=== PATIENT | male | born 1955 | race Caucasian/White ===

== ENCOUNTER 2016-08-01 00:49 | Inpatient (IN) | payer SELFPAY ==
[2016-08-01] MEDS ORDERED: ASPIRIN 81 MG TABLET, CHEWABLE PO ONE (01:33)
[2016-08-01 01:42] LABS: ABSOLUTE BASOPHILS # (AUTO) 0.1 10^3/uL (0.0-0.2); ABSOLUTE EOSINOPHILS # (AUTO) 0.2 10^3/uL (0.0-0.6); ABSOLUTE LYMPHOCYTES (AUTO) 1.6 10^3/uL (0.5-4.7); ABSOLUTE MONOCYTES (AUTO) 0.8 10^3/uL (0.1-1.4); BASOPHILS % (AUTO) 0.5 % (0-2); EOSINOPHILS % (AUTO) 1.7 % (0-6); HEMATOCRIT 50.8 % (37.9-51.0); HEMOGLOBIN 16.8 g/dL (13.5-17.0); HGB HCT DIFFERENCE -0.4; LYMPHOCYTES % (AUTO) 13.5 % (13-45); MEAN CORPUSCULAR HEMOGLOBIN 27.9 pg (27.0-33.4); MEAN CORPUSCULAR HGB CONC 33.2 g/dL (32.0-36.0); MEAN CORPUSCULAR VOLUME 84 fl (80-97); MONOCYTES % (AUTO) 7.1 % (3-13); RED BLOOD COUNT 6.02 10^6/uL (4.35-5.55); RED CELL DISTRIBUTION WIDTH 15.5 % (11.5-14.0); SEGMENTED NEUTROPHILS % (AUTO) 77.2 % (42-78); WHITE BLOOD COUNT 11.7 10^3/uL (4.0-10.5)
[2016-08-01] MEDS ORDERED: CLONIDINE HCL 0.2 MG TABLET PO ONE (01:57)
--- NOTE | 2016-08-01 01:58 | ER Document Report ---
ED General - General Chief Complaint: Chest Pain Stated Complaint: DIFFICULTY BREATHING Mode of Arrival: Ambulatory Information source: Patient Notes: Patient presents to the emergency department with complaints of left-sided chest pain for the past week. He also reports shortness of breath that comes and goes and lasts for approximately 10-20 seconds for the past year. Patient reports he has had productive phlegm for several years. He denies cough. He denies fever vomiting diarrhea reports he did have some nausea earlier. He reports that he was walking down the steps he became very short of breath and became dizzy. He also complains of abdominal pain in the morning but is better after he drinks coffee and has a bowel movement. He reports last bowel movement this morning. Denies history of cardiac disease but is hypertensive. He reports he hasn't taken his blood pressure medications for over 6 months. 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 TRAVEL OUTSIDE OF THE [place] IN LAST 30 DAYS: No - HPI Onset: Other - SOB over a year, cp for one week Onset/Duration: Persistent Quality of pain: Pressure Severity: Moderate Pain Level: 3 Associated symptoms: Nausea Exacerbated by: Denies Relieved by: Denies Similar symptoms previously: Yes Recently seen / treated by doctor: No - Related Data Allergies/Adverse Reactions: No Known Allergies Allergy (Unverified 08/01/16 01:56) Home Medications: Current Home Medications No Home Medications 08/01/16 [History] Past Medical History - General Information source: Patient - Social History Smoking Status: Never Smoker Cigarette use (# per day): No Frequency of alcohol use: Rare Drug Abuse: None Occupation: retired Lives with: Family - son Family History: Reviewed & Not Pertinent Patient has suicidal ideation: No Patient has homicidal ideation: No - Past Medical History Cardiac Medical History: Reports: Hx Hypertension Renal/ Medical History: Denies: Hx Peritoneal Dialysis Past Surgical History: Reports: Hx Orthopedic Surgery Review of Systems - Review of Systems Notes: Review HPI for review of systems., All other systems negative Physical Exam - Vital signs Vitals: Temp Pulse Resp BP Pulse Ox 98 F 95 18 203/147 H 98 08/01/16 01:11 08/01/16 01:11 08/01/16 01:11 08/01/16 01:11 08/01/16 01:11 - Notes Notes: PHYSICAL EXAMINATION: GENERAL: Well-appearing and in no acute distress nontxoic looking HEAD: Atraumatic, normocephalic. EYES: Pupils equal round and reactive to light, extraocular movements intact, sclera anicteric, conjunctiva are normal. ENT: nares patent, oropharynx clear without exudates. Moist mucous membranes. NECK: Normal range of motion, supple without lymphadenopathy LUNGS: CTAB and equal. No wheezes rales or rhonchi. HEART: Regular rate and rhythm + murmur ABDOMEN: Soft, no tenderness. No guarding, no rebound BACK: Denies pain EXTREMITIES: Normal range of motion, no pitting edema. No cyanosis. NEUROLOGICAL: Cranial nerves grossly intact. Normal sensory/motor exams. PSYCH: Normal mood, normal affect. SKIN: Warm, Dry, normal turgor, no rashes or lesions noted Course - Re-evaluation Re-evalutation: 08/01/16 First her trauma in 0.053 through. Patient was given clonidine for blood pressure which really didn't help. Consulted Dr. Allen who advised amlodipine and HCTZ. Patient reports chest pain hurts only when you touch it. Denies chest pain at any other time. 08/01/16 06:22 Patient complaining of a headache and unable to sleep Tylenol with Benadryl ordered. 08/01/16 07:35 Patient reports Tylenol with Benadryl helped his headache is gone. He was instructed on admission. He agrees to plan. Dr. Christie contacted patient admitted to telemetry obs. - Vital Signs Vital signs: Temp Pulse Resp BP Pulse Ox 97.5 F 75 20 176/100 H 98 08/01/16 20:09 08/01/16 23:00 08/01/16 20:09 08/01/16 20:09 08/01/16 20:09 - Laboratory Result Diagrams: 08/01/16 01:25 08/01/16 01:25 Laboratory results interpreted by me: 08/01/16 08/01/16 01:25 01:25 WBC 11.7 H RBC 6.02 H RDW 15.5 H Plt Count 147 L Absolute Neutrophils 9.0 H Glucose 124 H - Diagnostic Test Radiology reviewed: Image reviewed, Reports reviewed - RAD/ CHEST SINGLE VIEW IMPRESSION: NO ACUTE RADIOGRAPHIC FINDING IN THE CHEST - EKG Interpretation by Me EKG shows normal: Sinus rhythm Discharge - Discharge Clinical Impression: Shortness of breath, Chest pain, Uncontrolled hypertension Condition: Stable Admitting Provider: Meme Leon jennifer Unit Admitted: Telemetry
[2016-08-01 02:11] LABS: ALANINE AMINOTRANSFERASE 33 U/L (21-72); ALBUMIN 4.3 g/dL (3.5-5.0); ALKALINE PHOSPHATASE 83 U/L (38-126); ANION GAP 13 (5-19); ASPARTATE AMINO TRANSFERASE 19 U/L (17-59); BILIRUBIN,DIRECT 0.3 mg/dL (0.0-0.4); BILIRUBIN,TOTAL 0.9 mg/dL (0.2-1.3); BLOOD UREA NITROGEN 20 mg/dL (7-20); CALCIUM 9.3 mg/dL (8.4-10.2); CARBON DIOXIDE 27 mmol/L (22-30); CHLORIDE 104 mmol/L (98-107); CREATINE KINASE 81 U/L (55-170); CREATININE RESULT 1.15 mg/dL (0.52-1.25); GLUCOSE 124 mg/dL (75-110); POTASSIUM 4.5 mmol/L (3.6-5.0); SODIUM 143.8 mmol/L (137-145); TOTAL PROTEIN 6.9 g/dL (6.3-8.2)
[2016-08-01 02:22] LABS: CREATINE KINASE MB 2.32 ng/mL (<4.55)
[2016-08-01 02:27] LABS: TROPONIN I 0.053 ng/mL
[2016-08-01] MEDS ORDERED: AMLODIPINE BESYLATE 10 MG TABLET PO ONE (02:56)
[2016-08-01] MEDS ORDERED: HYDROCHLOROTHIAZIDE 12.5 MG CAPSULE PO ONE (02:56)
--- NOTE | 2016-08-01 06:10 | EKG REPORT ---
SEVERITY:- ABNORMAL ECG - SINUS RHYTHM PROBABLE LEFT ATRIAL ABNORMALITY PROBABLE LVH WITH SECONDARY REPOL ABNRM : Confirmed by: Kandice Augustin 01-Aug-2016 06:10:37
--- NOTE | 2016-08-01 06:12 | EKG REPORT ---
SEVERITY:- ABNORMAL ECG - SINUS RHYTHM PROBABLE LEFT ATRIAL ABNORMALITY PROBABLE LVH WITH SECONDARY REPOL ABNRM BORDERLINE PROLONGED QT INTERVAL : Confirmed by: Kandice Augustin 01-Aug-2016 06:10:50
[2016-08-01] MEDS ORDERED: DIPHENHYDRAMINE HCL 25 MG CAPSULE PO ONE (06:21)
[2016-08-01] MEDS ORDERED: ACETAMINOPHEN 325 MG TABLET PO ONE (06:21)
--- NOTE | 2016-08-01 09:42 | PDOC H&P ---
History of Present Illness Admission Date/PCP: 08/01/16 07:40 Patient complains of: Chest pain History of Present Illness: OBI TORRES is a 61 year old male with presents to the emergency department with chest pain and numerous other complaints. Seems to be very concerned about his healthcare today however not concerned enough to have a primary care provider and take medications for high blood pressure as previously advised. Among his complaints are intermittent headaches, chest pain, undefined duration of "tingling" in left arm, prior asbestos exposure, chronic productive cough. Past Medical History Cardiac Medical History: Reports: Hypertension Past Surgical History Past Surgical History: Reports: Orthopedic Surgery Social History Information Source: Patient Lives with: Family - son Smoking Status: Never Smoker Frequency of Alcohol Use: None Hx Recreational Drug Use: No Hx Prescription Drug Abuse: No - Advance Directive Resuscitation Status: Full Code Family History Family History: Reviewed & Not Pertinent Parental Family History Reviewed: Yes Children Family History Reviewed: Yes Sibling(s) Family History Reviewed.: Yes Medication/Allergy Home Medications: No Home Medications 08/01/16 Allergies/Adverse Reactions: No Known Allergies Allergy (Unverified 08/01/16 01:56) Review of Systems Constitutional: PRESENT: fatigue, headache(s). ABSENT: chills, fever(s), weight gain, weight loss Eyes: ABSENT: visual disturbances Ears: ABSENT: hearing changes Cardiovascular: PRESENT: chest pain. ABSENT: dyspnea on exertion, edema, orthropnea, palpitations Respiratory: PRESENT: cough, dyspnea, sputum. ABSENT: hemoptysis Gastrointestinal: ABSENT: abdominal pain, constipation, diarrhea, hematemesis, hematochezia, nausea, vomiting Genitourinary: ABSENT: dysuria, hematuria Musculoskeletal: ABSENT: joint swelling Integumentary: ABSENT: rash, wounds Neurological: ABSENT: abnormal gait, abnormal speech, confusion, dizziness, focal weakness, syncope Psychiatric: ABSENT: anxiety, depression, homidical ideation, suicidal ideation Endocrine: ABSENT: cold intolerance, heat intolerance, polydipsia, polyuria Hematologic/Lymphatic: ABSENT: easy bleeding, easy bruising Physical Exam Vital Signs: Temp Pulse Resp BP Pulse Ox 98.1 F 95 19 194/145 H 99 08/01/16 08:31 08/01/16 01:11 08/01/16 09:01 08/01/16 09:00 08/01/16 09:01 General appearance: PRESENT: no acute distress, well-developed, well-nourished Head exam: PRESENT: atraumatic, normocephalic Eye exam: PRESENT: conjunctiva pink, EOMI, PERRLA. ABSENT: scleral icterus Ear exam: PRESENT: normal external ear exam Mouth exam: PRESENT: moist, tongue midline Neck exam: ABSENT: carotid bruit, JVD, lymphadenopathy, thyromegaly Respiratory exam: PRESENT: clear to auscultation faiza. ABSENT: rales, rhonchi, wheezes Cardiovascular exam: PRESENT: RRR. ABSENT: diastolic murmur, rubs, systolic murmur Pulses: PRESENT: normal dorsalis pedis pul Vascular exam: PRESENT: normal capillary refill GI/Abdominal exam: PRESENT: normal bowel sounds, soft. ABSENT: distended, guarding, mass, organolmegaly, rebound, tenderness Rectal exam: PRESENT: deferred Extremities exam: PRESENT: full ROM. ABSENT: calf tenderness, clubbing, pedal edema Neurological exam: PRESENT: alert, awake, oriented to person, oriented to place , oriented to time, oriented to situation, CN II-XII grossly intact. ABSENT: motor sensory deficit Psychiatric exam: PRESENT: appropriate affect, normal mood. ABSENT: homicidal ideation, suicidal ideation Skin exam: PRESENT: dry, intact, warm. ABSENT: cyanosis, rash Results Laboratory Results: Labs- All tests 24 hr 08/01/16 08/01/16 08/01/16 01:25 01:25 01:25 WBC 11.7 H RBC 6.02 H Hgb 16.8 Hct 50.8 MCV 84 MCH 27.9 MCHC 33.2 RDW 15.5 H Plt Count 147 L Seg Neutrophils % 77.2 Lymphocytes % 13.5 Monocytes % 7.1 Eosinophils % 1.7 Basophils % 0.5 Absolute Neutrophils 9.0 H Absolute Lymphocytes 1.6 Absolute Monocytes 0.8 Absolute Eosinophils 0.2 Absolute Basophils 0.1 Sodium 143.8 Potassium 4.5 Chloride 104 Carbon Dioxide 27 Anion Gap 13 BUN 20 Creatinine 1.15 Est GFR ( Amer) > 60 Est GFR (Non-Af Amer) > 60 Glucose 124 H Calcium 9.3 Magnesium Total Bilirubin 0.9 Direct Bilirubin 0.3 Indirect Bilirubin Not Reportable Neonat Total Bilirubin Not Reportable AST 19 ALT 33 Alkaline Phosphatase 83 Creatine Kinase 81 CK-MB (CK-2) 2.32 Troponin I 0.053 Total Protein 6.9 Albumin 4.3 08/01/16 08/01/16 01:25 05:47 WBC RBC Hgb Hct MCV MCH MCHC RDW Plt Count Seg Neutrophils % Lymphocytes % Monocytes % Eosinophils % Basophils % Absolute Neutrophils Absolute Lymphocytes Absolute Monocytes Absolute Eosinophils Absolute Basophils Sodium Potassium Chloride Carbon Dioxide Anion Gap BUN Creatinine Est GFR ( Amer) Est GFR (Non-Af Amer) Glucose Calcium Magnesium 2.1 Total Bilirubin Direct Bilirubin Indirect Bilirubin Neonat Total Bilirubin AST ALT Alkaline Phosphatase Creatine Kinase CK-MB (CK-2) Troponin I 0.056 Total Protein Albumin Impressions: Chest X-Ray 08/01/16 01:33 IMPRESSION: NO ACUTE RADIOGRAPHIC FINDING IN THE CHEST. Assessment & Plan - Diagnosis (1) Chest pain Is this a current diagnosis for this admission?: YesPlan: Place patient on observation status on telemetry monitoring. Start aspirin. Check lipid panel. Check serial cardiac enzymes. Check echocardiogram. Check CTA of chest to rule out PE. (2) Uncontrolled hypertension Is this a current diagnosis for this admission?: YesPlan: Start Toprol-XL 50 mg twice daily. When necessary IV hydralazine. Check urine drug screen. (3) Paresthesia and pain of left extremity Is this a current diagnosis for this admission?: YesPlan: Check MRI of brain and MRA of head. (4) Shortness of breath Is this a current diagnosis for this admission?: Yes (5) Noncompliance with medication regimen Is this a current diagnosis for this admission?: Yes - Time Time Spent: Greater than 70 Minutes Anticipated discharge: Home Within: within 48 hours
[2016-08-01] MEDS: METOPROLOL SUCCINATE 50 MG TAB.SR.24H PO SCH ×2 (09:45→22:14)
[2016-08-01] MEDS: HYDRALAZINE HCL INJ/PF 20 MG/1 ML SDV IV PRN ×2 (09:46→16:38)
[2016-08-01] MEDS: ASPIRIN 325 MG TABLET, ENT COATED PO SCH (09:46)
[2016-08-01 09:53] LABS: URINE BARBITURATES SCREEN NEGATIVE; URINE METHADONE SCREEN NEGATIVE; URINE OPIATES LOW NEGATIVE; URINE PHENCYCLIDINE SCREEN NEGATIVE
[2016-08-01 11:11] LABS: CREATINE KINASE MB 1.87 ng/mL (<4.55); TROPONIN I 0.04 ng/mL
[2016-08-01] MEDS ORDERED: REGADENOSON INJ 0.4 MG/5 ML DISP.SYRIN IV ONE (12:35)
[2016-08-01] MEDS: ACETAMINOPHEN 325 MG TABLET PO PRN (13:51)
[2016-08-01] MEDS: NITROGLYCERIN 2% OINTMENT 1 GM PACKET TP SCH ×2 (14:57→20:22)
[2016-08-01 15:47] LABS: CREATINE KINASE MB 2.19 ng/mL (<4.55); TROPONIN I 0.036 ng/mL
[2016-08-01] MEDS ORDERED: HYDROMORPHONE HCL INJ/PF 2 MG/ML AMPULE IV ONE (17:00)
[2016-08-01 23:18] LABS: CREATINE KINASE MB 2.63 ng/mL (<4.55); TROPONIN I 0.028 ng/mL
[2016-08-02] MEDS: NITROGLYCERIN 2% OINTMENT 1 GM PACKET TP SCH ×2 (03:02→11:36)
[2016-08-02] MEDS: HYDRALAZINE HCL INJ/PF 20 MG/1 ML SDV IV PRN (03:15)
[2016-08-02] MEDS: ACETAMINOPHEN 325 MG TABLET PO PRN (04:28)
[2016-08-02 07:50] LABS: CHOLESTEROL 159.83 mg/dL (0-200); Direct HDL 38 mg/dL (>40); TRIGLYCERIDES 46 mg/dL (<150)
[2016-08-02] MEDS ORDERED: ENOXAPARIN SODIUM INJ 40 MG/0.4 ML DISP.SYRIN SUBCUT SCH (08:00)
[2016-08-02 08:01] LABS: DIRECT LDL 110 mg/dL (<100)
[2016-08-02] MEDS: ASPIRIN 325 MG TABLET, ENT COATED PO SCH (09:54)
[2016-08-02] MEDS: AMLODIPINE BESYLATE 5 MG TABLET PO SCH ×2 (09:54→21:45)
[2016-08-02] MEDS ORDERED: FINASTERIDE 5 MG TABLET PO ONE (13:00)
[2016-08-02] MEDS: TRAMADOL HCL 50 MG TABLET PO PRN ×2 (13:07→22:20)
[2016-08-02 13:45] LABS: APPEARANCE,URINE SLIGHTLY-CLOUDY; BILIRUBIN,URINE NEGATIVE (NEGATIVE); GLUCOSE, URINE 50 mg/dL (NEGATIVE); KETONES,URINE TRACE mg/dL (NEGATIVE); LEUKOCYTE ESTERASE,URINE NEGATIVE (NEGATIVE); NITRITE,URINE NEGATIVE (NEGATIVE); PROTEIN,URINE 100 mg/dL (NEGATIVE); URINE SPECIFIC GRAVITY 1.012; UROBILINOGEN,URINE NEGATIVE mg/dL (<2.0)
--- NOTE | 2016-08-02 17:51 | PDOC PROGRESS REPORT ---
Subjective Progress Note for:: 08/02/16 Subjective:: Nursing reports the patient has been unable to void requiring in and out catheterization. He is also had hematuria. He continues to have intermittent chest pain and shortness of breath. He denies fevers or chills. Physical Exam Vital Signs: Temp Pulse Resp BP Pulse Ox 97.6 F 56 L 20 157/84 H 98 08/02/16 12:00 08/02/16 14:00 08/02/16 12:00 08/02/16 12:00 08/02/16 12:00 Intake & Output 08/01/16 08/02/16 08/03/16 06:59 06:59 06:59 Intake Total 1200 Output Total 1000 Balance 200 Weight 90.4 kg GENERAL: No acute distress HEENT: Conjunctiva clear, nonicteric, moist mucous membranes, no JVD, midline trachea RESPIRATORY: Clear to auscultation bilaterally, no wheezes, no rhonchi CARDIAC: Regular rate and rhythm, no murmurs/gallops/rubs ABDOMEN: Soft, nondistended, nontender, positive bowel sounds, no rebound, no guarding EXTREMETIES: No edema, cyanosis, clubbing NEUROLOGIC: Alert, oriented to person/place/time, CN's grossly intact, no focal deficits SKIN: No rash, wounds PSYCH: Normal mood, normal affect Results Laboratory Results: 08/02/16 08/02/16 08/02/16 06:58 06:58 13:15 Triglycerides 46 Cholesterol 159.83 LDL Cholesterol Direct 110 H VLDL Cholesterol 9.0 L HDL Cholesterol 38 L Prostate Specific Ag TSH 1.49 Urine Color YELLOW Urine Appearance SLIGHTLY-CLOUDY Urine pH 5.0 Ur Specific [place] 1.012 Urine Protein 100 H Urine Glucose (UA) 50 H Urine Ketones TRACE H Urine Blood LARGE H Urine Nitrite NEGATIVE Ur Leukocyte Esterase NEGATIVE Urine WBC (Auto) 5 Urine RBC (Auto) 131 08/02/16 13:40 Triglycerides Cholesterol LDL Cholesterol Direct VLDL Cholesterol HDL Cholesterol Prostate Specific Ag 4.370 H TSH Urine Color Urine Appearance Urine pH Ur Specific [place] Urine Protein Urine Glucose (UA) Urine Ketones Urine Blood Urine Nitrite Ur Leukocyte Esterase Urine WBC (Auto) Urine RBC (Auto) 08/01/16 08/01/16 08/01/16 10:05 10:05 15:03 Creatine Kinase 67 77 CK-MB (CK-2) 1.87 Troponin I 0.040 04/08/17 04/08/17 04/08/17 15:03 21:38 21:38 Creatine Kinase 68 CK-MB (CK-2) 2.19 Cancelled Troponin I 0.036 Cancelled 08/01/16 22:33 Creatine Kinase CK-MB (CK-2) 2.63 Troponin I 0.028 Impressions: Brain MRI with MRA 08/01/16 00:00 IMPRESSION: NORMAL MRA OF [place]. Chest/Abdomen CTA 08/01/16 00:00 IMPRESSION: 1. No PE. 2. Congestive heart failure. Chest X-Ray 08/01/16 01:33 IMPRESSION: NO ACUTE RADIOGRAPHIC FINDING IN THE CHEST. Head MRI 08/01/16 09:26 IMPRESSION: No acute abnormality in the brain. Abdomen/Pelvis CT 08/02/16 00:00 IMPRESSION: 1. No evidence of urinary obstruction, large stones or masses. 2. Prostate enlargement. 3. Cardiomegaly with small effusions, as before. Assessment & Plan - Diagnosis (1) Chest pain Is this a current diagnosis for this admission?: YesPlan: Cardiac enzymes negative for [place]. Decrease aspirin 81 mg daily secondary to hematuria. Start Lipitor 20 mg daily. CTA of chest negative for pulmonary embolism. Check stress test in a.m. Check echocardiogram. (2) Uncontrolled hypertension Is this a current diagnosis for this admission?: YesPlan: Discontinue Toprol and start Norvasc 5 mg twice daily. When necessary IV hydralazine. Urine drug screen negative. (3) Paresthesia and pain of left extremity Is this a current diagnosis for this admission?: YesPlan: MRI of the brain negative. MRA of the head showed normal [place]. Check carotid Dopplers. (4) Shortness of breath Is this a current diagnosis for this admission?: YesPlan: CTA of chest negative. Check echocardiogram and stress test. (5) Noncompliance with medication regimen Is this a current diagnosis for this admission?: Yes (6) Urinary retention Is this a current diagnosis for this admission?: YesPlan: Place Miranda catheter. Start patient on Proscar for BPH. Arrange outpatient urology follow-up for this as well as elevated PSA. CT scan shows no evidence of obstructive uropathy, no evidence of bladder mass, patient does have enlarged prostate. (7) Hematuria Is this a current diagnosis for this admission?: Yes (8) BPH (benign prostatic hyperplasia) Is this a current diagnosis for this admission?: Yes - Time Time Spent with patient: 35 or more minutes Anticipated discharge: Home Within: within 48 hours
[2016-08-02] MEDS: ATORVASTATIN CALCIUM 20 MG TABLET PO SCH (21:45)
[2016-08-03 07:36] LABS: ABSOLUTE BASOPHILS # (AUTO) 0.1 10^3/uL (0.0-0.2); ABSOLUTE EOSINOPHILS # (AUTO) 0.3 10^3/uL (0.0-0.6); ABSOLUTE LYMPHOCYTES (AUTO) 1.4 10^3/uL (0.5-4.7); BASOPHILS % (AUTO) 0.5 % (0-2); EOSINOPHILS % (AUTO) 2.3 % (0-6); HEMOGLOBIN 15.4 g/dL (13.5-17.0); HGB HCT DIFFERENCE -0.8; LYMPHOCYTES % (AUTO) 11.1 % (13-45); MEAN CORPUSCULAR HEMOGLOBIN 27.7 pg (27.0-33.4); MEAN CORPUSCULAR HGB CONC 32.9 g/dL (32.0-36.0); MEAN CORPUSCULAR VOLUME 84 fl (80-97); MONOCYTES % (AUTO) 7.6 % (3-13); RED BLOOD COUNT 5.56 10^6/uL (4.35-5.55); RED CELL DISTRIBUTION WIDTH 15.9 % (11.5-14.0); SEGMENTED NEUTROPHILS % (AUTO) 78.5 % (42-78); WHITE BLOOD COUNT 12.7 10^3/uL (4.0-10.5)
[2016-08-03 07:41] LABS: PARTIAL THROMBOPLASTIN TIME 26.7 SEC (23.5-35.8); PROTHROMBIN TIME 14.4 SEC (11.4-15.4)
[2016-08-03 07:56] LABS: ANION GAP 11 (5-19); BLOOD UREA NITROGEN 25 mg/dL (7-20); CARBON DIOXIDE 24 mmol/L (22-30); CHLORIDE 104 mmol/L (98-107); CREATININE RESULT 1.07 mg/dL (0.52-1.25); GLUCOSE 111 mg/dL (75-110); SODIUM 139.1 mmol/L (137-145)
[2016-08-03] MEDS: FINASTERIDE 5 MG TABLET PO SCH (09:41)
[2016-08-03] MEDS: DOXYCYCLINE HYCLATE 100 MG TABLET PO SCH ×2 (09:41→22:57)
[2016-08-03] MEDS: AMLODIPINE BESYLATE 5 MG TABLET PO SCH ×2 (09:42→22:57)
[2016-08-03] MEDS: ASPIRIN 81 MG TABLET, ENT COATED PO SCH (09:42)
[2016-08-03] MEDS: TRAMADOL HCL 50 MG TABLET PO PRN ×2 (09:42→22:57)
[2016-08-03] MEDS ORDERED: LISINOPRIL 10 MG TABLET PO ONE (15:00)
[2016-08-03] MEDS ORDERED: FUROSEMIDE 20 MG TABLET PO ONE (15:00)
--- NOTE | 2016-08-03 16:29 | DRAGON STRESS TEST REPORT ---
Intravenous Lexiscan Cardiolite stress test using single photon emmision computerized tomography. Date of procedure: 08/02/2016 Ordering Provider: Dr. Be Christie. Indication: Chest pain. Coronary risk factors: Age, hypertension, and dyslipidemia Resting EKG: Sinus Rhythm. LVH with strain pattern, cannot exclude inferolateral ischemia. The patient no chest pain or discomfort, and there were no arrhythmias seen. The patient complained of mild shortness of breath, without wheezing, and this was relieved with drinking Pepsi Stress EKG: No changes of ischemia. Reason for termination: Protocol. Conclusions: Normal EKG and hemodynamic response to IV Lexiscan. Nuclear data: At rest the patient was given 12.29 millicuries of technetium 99m sestamibi injected intravenously. As per protocol rest non gated SPECT images were obtained. Subsequently the patient was given intravenous Lexiscan at a dose of 0.4 mg in 5 mL intravenously, followed by flush with normal saline. Subsequently the stress dose of 40.2 millicuries of technetium 99m sestamibi was injected intravenously. As per protocol stress gated images were obtained. Nuclear interpretation: Note that there was bowel contamination artifact of the inferior wall. Review of images showed that there was a perfusion defect in both the rest and the Lexiscan induced stress images involving the apical inferior wall. This area had decreased motion contraction and thickening by gated. Gated study the rest of the segments of the myocardium had normal perfusion at rest, and normal perfusion post stress with IV Lexiscan. The rest of the segments of the myocardium had normal thickening by gated study. But there was decreased global hypokinesia of the rest of the segments. The left ventricle was enlarged consistent with cardiomegaly T. I D. ratio was normal at 1.02. Computer read rest, and stress left ventricular ejection fraction were 35 %, and 34 %, respectively. Conclusion: 1. There is no scintigraphic evidence of Lexiscan induced myocardial ischemia. 2. There is scintigraphic evidence of myocardial infarction/scar involving the apical inferior wall. 3. There is evidence of LV dilated patient and cardiomyopathy, with moderate to severely reduced LV ejection fraction. Recommendations: 1.Aggressive treatment of coronary artery disease and cardiomyopathy with appropriate drugs. 2.Would recommend an echocardiogram for LV ejection fraction correlation 3.Aggressive risk factor modification, and treating the underlying co- morbidities. [facility]
--- NOTE | 2016-08-03 18:49 | PDOC PROGRESS REPORT ---
Subjective Progress Note for:: 08/03/16 Subjective:: Patient has continued chest pain. His breathing is improved from admission. He has no further hematuria. Patient denies fever, chills, headache, new focal weakness,abdominal pain, nausea, vomiting, diarrhea, constipation. Physical Exam Vital Signs: Temp Pulse Resp BP Pulse Ox 97.6 F 73 20 155/95 H 97 08/03/16 11:03 08/03/16 14:00 08/03/16 11:03 08/03/16 11:03 08/03/16 11:03 Intake & Output 08/02/16 08/03/16 08/04/16 06:59 06:59 06:59 Intake Total 1200 1040 474 Output Total 1000 1400 700 Balance 200 -360 -226 Weight 90.4 kg 90.5 kg GENERAL: No acute distress HEENT: Conjunctiva clear, nonicteric, moist mucous membranes, no JVD, midline trachea RESPIRATORY: Clear to auscultation bilaterally, no wheezes, no rhonchi CARDIAC: Regular rate and rhythm, no murmurs/gallops/rubs ABDOMEN: Soft, nondistended, nontender, positive bowel sounds, no rebound, no guarding EXTREMETIES: No edema, cyanosis, clubbing NEUROLOGIC: Alert, oriented to person/place/time, CN's grossly intact, no focal deficits SKIN: No rash, wounds PSYCH: Normal mood, normal affect Results Laboratory Results: 08/03/16 06:58 08/03/16 06:58 08/03/16 08/03/16 06:58 06:58 WBC 12.7 H RBC 5.56 H Hgb 15.4 Hct 47.0 MCV 84 MCH 27.7 MCHC 32.9 RDW 15.9 H Plt Count 122 L Seg Neutrophils % 78.5 H Lymphocytes % 11.1 L Monocytes % 7.6 Eosinophils % 2.3 Basophils % 0.5 Absolute Neutrophils 10.0 H Absolute Lymphocytes 1.4 Absolute Monocytes 1.0 Absolute Eosinophils 0.3 Absolute Basophils 0.1 Sodium 139.1 Potassium 4.0 Chloride 104 Carbon Dioxide 24 Anion Gap 11 BUN 25 H Creatinine 1.07 Est GFR ( Amer) > 60 Est GFR (Non-Af Amer) > 60 Glucose 111 H Calcium 9.0 08/01/16 08/01/16 08/01/16 10:05 10:05 15:03 Creatine Kinase 67 77 CK-MB (CK-2) 1.87 Troponin I 0.040 08/01/16 08/01/16 08/01/16 15:03 21:38 21:38 Creatine Kinase 68 CK-MB (CK-2) 2.19 Cancelled Troponin I 0.036 Cancelled 08/01/16 22:33 Creatine Kinase CK-MB (CK-2) 2.63 Troponin I 0.028 Impressions: Brain MRI with MRA 08/01/16 00:00 IMPRESSION: NORMAL MRA OF THE [place]. Chest/Abdomen CTA 08/01/16 00:00 IMPRESSION: 1. No PE. 2. Congestive heart failure. Chest X-Ray 08/01/16 01:33 IMPRESSION: NO ACUTE RADIOGRAPHIC FINDING IN THE CHEST. Head MRI 08/01/16 09:26 IMPRESSION: No acute abnormality in the brain. Abdomen/Pelvis CT 08/02/16 00:00 IMPRESSION: 1. No evidence of urinary obstruction, large stones or masses. 2. Prostate enlargement. 3. Cardiomegaly with small effusions, as before. Carotid Doppler Study 08/03/16 00:00 IMPRESSION: NO HEMODYNAMICALLY SIGNIFICANT STENOSIS. Cardiolite stress test or 02/12/2017 Per verbal report of Dr. Pate patient has EF 35%, local hypokinesia, fixed defect in the apical inferior wall, no reversible ischemia. Assessment & Plan - Diagnosis (1) Chest pain Is this a current diagnosis for this admission?: YesPlan: Patient has abnormal stress test as mentioned above, but no reversible ischemia. Case discussed with Dr. Pate of cardiology. Patient will be continued on aspirin. He will be started on beta rosa, lisinopril, Imdur. He will continue Lipitor 20 mg nightly. I will arrange follow-up with Dr. Pate as an outpatient. (2) Acute systolic CHF (congestive heart failure) Is this a current diagnosis for this admission?: YesPlan: Cardiology stress test with EF 35%. Patient will be started on lisinopril, Lasix, Coreg. We will arrange follow-up as an outpatient with Dr. Pate of cardiology. (3) Uncontrolled hypertension Is this a current diagnosis for this admission?: YesPlan: Continue Norvasc 5 mg twice daily. Start lisinopril 10 mg daily, Coreg 6.25 mg twice daily. When necessary IV hydralazine. Urine drug screen negative. (4) Paresthesia and pain of left extremity Is this a current diagnosis for this admission?: YesPlan: MRI of the brain negative. MRA of the head showed normal [place]. Carotid Dopplers with no significant stenosis. (5) Shortness of breath Is this a current diagnosis for this admission?: YesPlan: Likely secondary to CHF. CTA of chest negative. Echocardiogram pending. Stress test with no reversible ischemia, but EF 35%. (6) Noncompliance with medication regimen Is this a current diagnosis for this admission?: Yes (7) Urinary retention Is this a current diagnosis for this admission?: YesPlan: Placed Miranda catheter and will maintain Miranda catheter into urology follow-up. Started patient on Proscar for BPH. Arrange outpatient urology follow-up for this as well as elevated PSA. CT scan shows no evidence of obstructive uropathy , no evidence of bladder mass, patient does have enlarged prostate. (8) Hematuria Is this a current diagnosis for this admission?: Yes (9) BPH (benign prostatic hyperplasia) Is this a current diagnosis for this admission?: Yes (10) Acute bronchitis Is this a current diagnosis for this admission?: YesPlan: Continue doxycycline until 08/08/2016. - Time Time Spent with patient: 35 or more minutes
[2016-08-03] MEDS: ATORVASTATIN CALCIUM 20 MG TABLET PO SCH (22:57)
[2016-08-03] MEDS: CARVEDILOL 6.25 MG TABLET PO SCH (22:57)
[2016-08-04 06:34] LABS: ABSOLUTE BASOPHILS # (AUTO) 0.1 10^3/uL (0.0-0.2); ABSOLUTE EOSINOPHILS # (AUTO) 0.4 10^3/uL (0.0-0.6); ABSOLUTE LYMPHOCYTES (AUTO) 0.9 10^3/uL (0.5-4.7); ABSOLUTE MONOCYTES (AUTO) 0.8 10^3/uL (0.1-1.4); ABSOLUTE NEUT (AUTO) 7.5 10^3/uL (1.7-8.2); BASOPHILS % (AUTO) 0.8 % (0-2); EOSINOPHILS % (AUTO) 3.6 % (0-6); HEMATOCRIT 46.1 % (37.9-51.0); HEMOGLOBIN 15.7 g/dL (13.5-17.0); LYMPHOCYTES % (AUTO) 9.6 % (13-45); MEAN CORPUSCULAR HEMOGLOBIN 28.6 pg (27.0-33.4); MEAN CORPUSCULAR VOLUME 84 fl (80-97); MONOCYTES % (AUTO) 8.6 % (3-13); RED BLOOD COUNT 5.48 10^6/uL (4.35-5.55); RED CELL DISTRIBUTION WIDTH 15.8 % (11.5-14.0); SEGMENTED NEUTROPHILS % (AUTO) 77.4 % (42-78); WHITE BLOOD COUNT 9.7 10^3/uL (4.0-10.5)
[2016-08-04 06:49] LABS: ANION GAP 11 (5-19); BLOOD UREA NITROGEN 23 mg/dL (7-20); CALCIUM 9.2 mg/dL (8.4-10.2); CARBON DIOXIDE 25 mmol/L (22-30); CHLORIDE 103 mmol/L (98-107); CREATININE RESULT 0.99 mg/dL (0.52-1.25); GLUCOSE 178 mg/dL (75-110); POTASSIUM 3.9 mmol/L (3.6-5.0); SODIUM 139.2 mmol/L (137-145)
[2016-08-04] MEDS ORDERED: FUROSEMIDE 20 MG TABLET PO SCH (10:00)
[2016-08-04] MEDS: CARVEDILOL 6.25 MG TABLET PO SCH (10:01)
[2016-08-04] MEDS: ISOSORBIDE MONONITRATE 30 MG TAB.ER.24H PO SCH (10:01)
[2016-08-04] MEDS: DOXYCYCLINE HYCLATE 100 MG TABLET PO SCH (10:02)
[2016-08-04] MEDS: LISINOPRIL 10 MG TABLET PO SCH (10:02)
[2016-08-04] MEDS: FINASTERIDE 5 MG TABLET PO SCH (10:02)
[2016-08-04] MEDS: ASPIRIN 81 MG TABLET, ENT COATED PO SCH (10:02)
[2016-08-04] MEDS: AMLODIPINE BESYLATE 5 MG TABLET PO SCH ×2 (10:02→21:25)
[2016-08-04] MEDS: TRAMADOL HCL 50 MG TABLET PO PRN ×2 (11:13→20:50)
--- NOTE | 2016-08-04 17:38 | PDOC PROGRESS REPORT ---
Subjective Progress Note for:: 08/04/16 Subjective:: Patient has continued chest pain. His breathing is improved from admission. He has no further hematuria. Patient has noted continued dyspnea on exertion and orthopnea. Patient denies fever, chills, headache, new focal weakness,abdominal pain, nausea, vomiting, diarrhea, constipation. Physical Exam Vital Signs: Temp Pulse Resp BP Pulse Ox 97.6 F 62 13 118/78 99 08/04/16 12:00 08/04/16 14:00 08/04/16 12:00 08/04/16 12:00 08/04/16 12:00 GENERAL: No acute distress HEENT: Conjunctiva clear, nonicteric, moist mucous membranes, no JVD, midline trachea RESPIRATORY: Clear to auscultation bilaterally, no wheezes, no rhonchi CARDIAC: Regular rate and rhythm, no murmurs/gallops/rubs ABDOMEN: Soft, nondistended, nontender, positive bowel sounds, no rebound, no guarding EXTREMETIES: 1+ bilateral lower extremity edema NEUROLOGIC: Alert, oriented to person/place/time, CN's grossly intact, no focal deficits SKIN: No rash, wounds PSYCH: Normal mood, normal affect Results Impressions: Brain MRI with MRA 08/01/16 00:00 IMPRESSION: NORMAL MRA OF [place]. Chest/Abdomen CTA 08/01/16 00:00 IMPRESSION: 1. No PE. 2. Congestive heart failure. Chest X-Ray 08/01/16 01:33 IMPRESSION: NO ACUTE RADIOGRAPHIC FINDING IN THE CHEST. Head MRI 08/01/16 09:26 IMPRESSION: No acute abnormality in the brain. Abdomen/Pelvis CT 08/02/16 00:00 IMPRESSION: 1. No evidence of urinary obstruction, large stones or masses. 2. Prostate enlargement. 3. Cardiomegaly with small effusions, as before. Carotid Doppler Study 08/03/16 00:00 IMPRESSION: NO HEMODYNAMICALLY SIGNIFICANT STENOSIS. Assessment & Plan - Diagnosis (1) Acute systolic CHF (congestive heart failure) Is this a current diagnosis for this admission?: YesPlan: Cardiolite stress test with EF 35%. Echocardiogram confirms ejection fraction 30-35%. Patient will be started on lisinopril, Coreg. Discontinue oral Lasix and start Lasix 20 mg IV every 12 hours. Case discussed with Dr. aPte of cardiology and he agrees with current medication regimen. We will arrange follow-up as an outpatient with Dr. Pate of cardiology. (2) Chest pain Is this a current diagnosis for this admission?: YesPlan: Patient has abnormal stress test as mentioned above, but no reversible ischemia. Case discussed with Dr. Pate of cardiology. Continue aspirin beta rosa, lisinopril, Imdur, Lipitor. I will arrange follow-up with Dr. Pate as an outpatient. (3) Uncontrolled hypertension Is this a current diagnosis for this admission?: YesPlan: Continue Norvasc 5 mg twice daily,lisinopril 10 mg daily. Increase Coreg to 12.5 mg twice daily. When necessary IV hydralazine. Urine drug screen negative. (4) Paresthesia and pain of left extremity Is this a current diagnosis for this admission?: YesPlan: MRI of the brain negative. MRA of the head showed normal [place]. Carotid Dopplers with no significant stenosis. (5) Noncompliance with medication regimen Is this a current diagnosis for this admission?: Yes (6) Urinary retention Is this a current diagnosis for this admission?: YesPlan: Placed Miranda catheter and will maintain Miranda catheter into urology follow-up. Started patient on Proscar for BPH. Arrange outpatient urology follow-up for this as well as elevated PSA. CT scan shows no evidence of obstructive uropathy , no evidence of bladder mass, patient does have enlarged prostate. (7) Hematuria Is this a current diagnosis for this admission?: Yes (8) BPH (benign prostatic hyperplasia) Is this a current diagnosis for this admission?: Yes (9) Elevated PSA Is this a current diagnosis for this admission?: YesPlan: Outpatient urology follow-up. - Time Time Spent with patient: 35 or more minutes - Inpatient Certification Based on my medical assessment, after consideration of the patient's comorbidities, presenting symptoms, or acuity I expect that the services needed warrant INPATIENT care.: Yes I certify that my determination is in accordance with my understanding of Medicare's requirements for reasonable and necessary INPATIENT services [42 CFR 412.3e].: Yes Medical Necessity: Need Close Monitoring Due to Risk of Patient Decompensation, Need For Continuous Telemetry Monitoring
[2016-08-04] MEDS: FUROSEMIDE INJ/PF 20 MG/2 ML SDV IV SCH (21:25)
[2016-08-04] MEDS: CARVEDILOL 12.5 MG TABLET PO SCH (21:25)
[2016-08-04] MEDS: ATORVASTATIN CALCIUM 20 MG TABLET PO SCH (21:25)
[2016-08-05] MEDS: AMLODIPINE BESYLATE 5 MG TABLET PO SCH (10:29)
[2016-08-05] MEDS: CARVEDILOL 12.5 MG TABLET PO SCH (10:29)
[2016-08-05] MEDS: ASPIRIN 81 MG TABLET, ENT COATED PO SCH (10:29)
[2016-08-05] MEDS: LISINOPRIL 10 MG TABLET PO SCH (10:29)
[2016-08-05] MEDS: ISOSORBIDE MONONITRATE 30 MG TAB.ER.24H PO SCH (10:29)
[2016-08-05] MEDS: TRAMADOL HCL 50 MG TABLET PO PRN (10:30)
[2016-08-05] MEDS: FUROSEMIDE INJ/PF 20 MG/2 ML SDV IV SCH (10:30)
[2016-08-05] MEDS: FINASTERIDE 5 MG TABLET PO SCH (10:30)
--- NOTE | 2016-08-05 13:53 | PDOC DISCHARGE SUMMARY ---
General - Admit/Disc Date/PCP Admission Date/Primary Care Provider: 08/04/16 10:41 Discharge Date: 08/05/16 - Discharge Diagnosis (1) Acute systolic CHF (congestive heart failure) Is this a current diagnosis for this admission?: Yes (2) Chest pain Is this a current diagnosis for this admission?: Yes (3) Uncontrolled hypertension Is this a current diagnosis for this admission?: Yes (4) Paresthesia and pain of left extremity Is this a current diagnosis for this admission?: Yes (5) Noncompliance with medication regimen Is this a current diagnosis for this admission?: Yes (6) Urinary retention Is this a current diagnosis for this admission?: Yes (7) Hematuria Is this a current diagnosis for this admission?: Yes (8) BPH (benign prostatic hyperplasia) Is this a current diagnosis for this admission?: Yes (9) Elevated PSA Is this a current diagnosis for this admission?: Yes - Additional Information Resuscitation Status: Full Code Discharge Diet: Cardiac Discharge Activity: Activity As Tolerated, Balance Activity w/Rest, Weigh Daily Home Medications: Amlodipine Besylate [Norvasc 5 mg Tablet] 5 mg PO Q12 #60 tablet 08/05/16 Aspirin [Ecotrin 81 mg EC Tablet] 81 mg PO DAILY tabec 08/05/16 Atorvastatin Calcium [Lipitor 20 mg Tablet] 20 mg PO QHS #30 tablet 08/05/16 Carvedilol [Coreg 12.5 mg Tablet] 12.5 mg PO Q12 #60 tablet 08/05/16 Finasteride [Proscar 5 mg Tablet] 5 mg PO DAILY #30 tablet 08/05/16 Furosemide [Lasix] 20 mg PO DAILY #30 tablet 08/05/16 Isosorbide Mononitrate [Imdur 30 mg Tablet.er] 30 mg PO BID #60 tab.er.24h 08/05 Lisinopril [Prinivil 10 mg Tablet] 10 mg PO DAILY #30 tablet 08/05/16 Tramadol HCl [Ultram 50 mg Tablet] 50 mg PO Q6HP PRN #30 tablet 08/05/16 History of Present Illness Patient complains of: Chest pain History of Present Illness: OBI TORRES is a 61 year old male with presents to the emergency department with chest pain and numerous other complaints, to include intermittent headaches, chest pain, undefined duration of "tingling" in left arm, prior asbestos exposure, chronic productive cough. Hospital Course Hospital Course: Patient was admitted to the hospital for above-mentioned complaints. Evaluation for his chest pain included serial cardiac enzymes that were negative for acute MN. Cardiolite stress test showed ejection fraction 35% with fixed defect and apical inferior wall, but no reversible ischemia. Echocardiogram also showed EF 30-35%. Patient was having symptoms of orthopnea , dyspnea on exertion, lower extremity edema. He was diagnosed with acute systolic congestive heart failure and initially given IV Lasix. He will be transitioned to oral Lasix on discharge. He is also discharged on Coreg, lisinopril, Imdur. Patient will be followed up by Dr. Pate of cardiology as an outpatient. Patient had episode of hematuria and urinary retention during hospitalization. Miranda catheter was placed secondary to enlarged prostate noted on CT of abdomen and pelvis. Patient had no evidence of obstructive uropathy. He had no evidence of bladder mass. He did have an elevated PSH. Miranda catheter will be left in place until patient is seen by urology as an outpatient. He has been started on Proscar. Patient had uncontrolled/untreated hypertension on admission. His blood pressure stable at time of discharge on Norvasc 5 mg twice daily, lisinopril 10 mg daily, Coreg 12.5 mg twice daily. Patient complained of paresthesias in his left arm and stated he had a history of cerebral aneurysm. MRI of the brain was negative. MRA of the head showed normal [place]. Carotid Doppler showed no hemodynamically significant stenosis. Patient has been started on aspirin and Lipitor. Physical Exam Vital Signs: Temp Pulse Resp BP Pulse Ox 97.7 F 67 16 141/87 H 100 08/05/16 11:10 08/05/16 11:10 08/05/16 11:10 08/05/16 11:10 08/05/16 11:10 Intake & Output 08/04/16 08/05/16 08/06/16 06:59 06:59 06:59 Intake Total 1146 Output Total 1753 Balance -607 Weight 92.3 kg GENERAL: No acute distress HEENT: Conjunctiva clear, nonicteric, moist mucous membranes, no JVD, midline trachea RESPIRATORY: Clear to auscultation bilaterally, no wheezes, no rhonchi CARDIAC: Regular rate and rhythm, no murmurs/gallops/rubs ABDOMEN: Soft, nondistended, nontender, positive bowel sounds, no rebound, no guarding EXTREMETIES: No edema, cyanosis, clubbing NEUROLOGIC: Alert, oriented to person/place/time, CN's grossly intact, no focal deficits SKIN: No rash, wounds PSYCH: Normal mood, normal affect Results Laboratory Results: Labs- Last Values WBC 9.7 10^3/uL (4.0-10.5) 08/04/16 06:21 RBC 5.48 10^6/uL (4.35-5.55) 08/04/16 06:21 Hgb 15.7 g/dL (13.5-17.0) 08/04/16 06:21 Hct 46.1 % (37.9-51.0) 08/04/16 06:21 MCV 84 fl (80-97) 08/04/16 06:21 MCH 28.6 pg (27.0-33.4) 08/04/16 06:21 MCHC 34.0 g/dL (32.0-36.0) 08/04/16 06:21 RDW 15.8 % (11.5-14.0) H 08/04/16 06:21 Plt Count 108 10^3/uL (150-450) L 08/04/16 06:21 Seg Neutrophils % 77.4 % (42-78) 08/04/16 06:21 Lymphocytes % 9.6 % (13-45) L 08/04/16 06:21 Monocytes % 8.6 % (3-13) 08/04/16 06:21 Eosinophils % 3.6 % (0-6) 08/04/16 06:21 Basophils % 0.8 % (0-2) 08/04/16 06:21 Absolute Neutrophils 7.5 10^3/uL (1.7-8.2) 08/04/16 06:21 Absolute Lymphocytes 0.9 10^3/uL (0.5-4.7) 08/04/16 06:21 Absolute Monocytes 0.8 10^3/uL (0.1-1.4) 08/04/16 06:21 Absolute Eosinophils 0.4 10^3/uL (0.0-0.6) 08/04/16 06:21 Absolute Basophils 0.1 10^3/uL (0.0-0.2) 08/04/16 06:21 PT 14.4 SEC (11.4-15.4) 08/03/16 06:58 INR 1.08 08/03/16 06:58 APTT 26.7 SEC (23.5-35.8) 08/03/16 06:58 Sodium 139.2 mmol/L (137-145) 08/04/16 06:21 Potassium 3.9 mmol/L (3.6-5.0) 08/04/16 06:21 Chloride 103 mmol/L (98-107) 08/04/16 06:21 Carbon Dioxide 25 mmol/L (22-30) 08/04/16 06:21 Anion Gap 11 (5-19) 08/04/16 06:21 BUN 23 mg/dL (7-20) H 08/04/16 06:21 Creatinine 0.99 mg/dL (0.52-1.25) 08/04/16 06:21 Est GFR ( Amer) > 60 (>60) 08/04/16 06:21 Est GFR (Non-Af Amer) > 60 (>60) 08/04/16 06:21 Glucose 178 mg/dL (75-110) H 08/04/16 06:21 Calcium 9.2 mg/dL (8.4-10.2) 08/04/16 06:21 Magnesium 2.1 mg/dL (1.6-2.3) 08/01/16 01:25 Total Bilirubin 0.9 mg/dL (0.2-1.3) 08/01/16 01:25 Direct Bilirubin 0.3 mg/dL (0.0-0.4) 08/01/16 01:25 Indirect Bilirubin Not Reportable 08/01/16 01:25 Neonat Total Bilirubin Not Reportable 08/01/16 01:25 AST 19 U/L (17-59) 08/01/16 01:25 ALT 33 U/L (21-72) 08/01/16 01:25 Alkaline Phosphatase 83 U/L (38-126) 08/01/16 01:25 Creatine Kinase 68 U/L (55-170) 08/01/16 21:38 CK-MB (CK-2) 2.63 ng/mL (<4.55) 08/01/16 22:33 Troponin I 0.028 ng/mL 08/01/16 22:33 Total Protein 6.9 g/dL (6.3-8.2) 08/01/16 01:25 Albumin 4.3 g/dL (3.5-5.0) 08/01/16 01:25 Triglycerides 46 mg/dL (<150) 08/02/16 06:58 Cholesterol 159.83 mg/dL (0-200) 08/02/16 06:58 LDL Cholesterol Direct 110 mg/dL (<100) H 08/02/16 06:58 VLDL Cholesterol 9.0 mg/dL (10-31) L 08/02/16 06:58 HDL Cholesterol 38 mg/dL (>40) L 08/02/16 06:58 Prostate Specific Ag 4.370 ng/mL (<4.00) H 08/02/16 13:40 TSH 1.49 uIU/mL (0.47-4.68) 08/02/16 06:58 Urine Color YELLOW 08/02/16 13:15 Urine Appearance SLIGHTLY-CLOUDY 08/02/16 13:15 Urine pH 5.0 (5.0-9.0) 08/02/16 13:15 Ur Specific [place] 1.012 08/02/16 13:15 Urine Protein 100 mg/dL (NEGATIVE) H 08/02/16 13:15 Urine Glucose (UA) 50 mg/dL (NEGATIVE) H 08/02/16 13:15 Urine Ketones TRACE mg/dL (NEGATIVE) H 08/02/16 13:15 Urine Blood LARGE (NEGATIVE) H 08/02/16 13:15 Urine Nitrite NEGATIVE (NEGATIVE) 08/02/16 13:15 Urine Bilirubin NEGATIVE (NEGATIVE) 08/02/16 13:15 Urine Urobilinogen NEGATIVE mg/dL (<2.0) 08/02/16 13:15 Ur Leukocyte Esterase NEGATIVE (NEGATIVE) 08/02/16 13:15 Urine WBC (Auto) 5 /HPF 08/02/16 13:15 Urine RBC (Auto) 131 /HPF 08/02/16 13:15 Urine Bacteria (Auto) TRACE /HPF 08/02/16 13:15 Urine Mucus (Auto) RARE /LPF 08/02/16 13:15 Urine Ascorbic Acid NEGATIVE (NEGATIVE) 08/02/16 13:15 Urine Opiates Screen NEGATIVE 08/01/16 09:15 Urine Methadone Screen NEGATIVE 08/01/16 09:15 Ur Barbiturates Screen NEGATIVE 08/01/16 09:15 Ur Phencyclidine Scrn NEGATIVE 08/01/16 09:15 Ur Amphetamines Screen NEGATIVE 08/01/16 09:15 U Benzodiazepines Scrn NEGATIVE 08/01/16 09:15 Urine Cocaine Screen NEGATIVE 08/01/16 09:15 U Marijuana (THC) Screen NEGATIVE 08/01/16 09:15 Impressions: Brain MRI with MRA 08/01/16 00:00 IMPRESSION: NORMAL MRA OF [place]. Chest/Abdomen CTA 08/01/16 00:00 IMPRESSION: 1. No PE. 2. Congestive heart failure. Chest X-Ray 08/01/16 01:33 IMPRESSION: NO ACUTE RADIOGRAPHIC FINDING IN THE CHEST. Head MRI 08/01/16 09:26 IMPRESSION: No acute abnormality in the brain. Abdomen/Pelvis CT 08/02/16 00:00 IMPRESSION: 1. No evidence of urinary obstruction, large stones or masses. 2. Prostate enlargement. 3. Cardiomegaly with small effusions, as before. Carotid Doppler Study 08/03/16 00:00 IMPRESSION: NO HEMODYNAMICALLY SIGNIFICANT STENOSIS. Qualifiers PATEINT BEING DISCHARGED WITH ANY OF THE FOLLOWING DIAGNOSIS?: Heart Failure HF Pt being discharged on ACEI for LVEF less than 40%?: Yes HF Pt being discharged on ARBS for LVEF less than 40%?: No Reason(s) for not prescribing ARBS:: Not indicated HF Pt with Afib discharged with Warfarin?: No Reason(s) for not prescribing Warfarin:: Not indicated HF Pt discharged on evidence-based Beta Castro:: Yes Plan Time Spent: Less than 30 Minutes
[2016-08-05 16:21] VITALS: BP 118/78
--- NOTE | 2016-08-09 11:47 | XCELERA REPORT ---
[address] [address] Transthoracic Echocardiogram Report Name: OBI TORRES Age: 61 yrs Gender: Male : 1955 Patient Status: Inpatient Patient Location: 5\[id number]\534\[id number]\A Study Date: 08/03/2016 11:44 AM Height: 71 in Weight: 199 lb BSA: 2.1 m2 Procedure: A two-dimensional transthoracic echocardiogram with color flow and Doppler was performed. Study Quality: Fair. Reason For Study: CHEST PAIN / DYSPNEA History: CHEST PAIN / DYSPNEA. Ordering Physician: MERARI BARONE Performed By: Karen Luther Interpretation Summary The left ventricle is mildly dilated. There is normal left ventricular wall thickness. LV EF is 249325% to 35% Left ventricular systolic function is moderate to severely reduced. There is moderate to severe global hypokinesis of the left ventricle. The right ventricle is grossly normal size. The right ventricle is not well visualized secondary to technical limitations The right atrium is normal in size The left atrial size is normal. The interatrial septum is intact with no evidence for an atrial septal defect. There is no evidence of mitral valve prolapse. There is no mitral valve stenosis. There is a mild amount of mitral regurgitation There is no aortic valve stenosis There is no LVOT obstruction. No aortic regurgitation is present. There is no tricuspid stenosis. There is a mild amount of tricuspid regurgitation There is mild pulmonary hypertension by echo RVSP is 36 to 41 mm of Hg , with RA mean of 5 to 10. There is no pericardial effusion. MMode/2D Measurements \T\ Calculations RVDd: 3.4 cm LVIDd: 5.5 cm FS: 18.6 % Ao root diam: 4.0 cm IVSd: 1.0 cm LVIDs: 4.4 cm EDV(Teich): 144.6 ml LVPWd: 1.00 cm ESV(Teich): 89.6 ml Ao root area: 12.5 cm2 EF(Teich): 38.0 % LA dimension: 4.0 cm LVOT diam: 2.2 cm LVOT area: 3.8 cm2 Doppler Measurements \T\ Calculations MV E max larissa: MV P1/2t max larissa: Ao V2 max: LV V1 max P.7 cm/sec 98.2 cm/sec 152.0 cm/sec 4.6 mmHg MV A max larissa: MV P1/2t: 52.9 msec Ao max PG: LV V1 max: 30.1 cm/sec MVA(P1/2t): 4.2 cm2 9.2 mmHg 107.1 cm/sec MV E/A: 3.3 MV dec slope: PRECIOUS(V,D): 2.7 cm2 544.2 cm/sec2 PA V2 max: TR max larissa: 81.4 cm/sec 278.0 cm/sec PA max PG: TR max P.9 mmHg 2.7 mmHg Left Ventricle The left ventricle is mildly dilated. There is normal left ventricular wall thickness. LV EF is 656935% to 35%. Left ventricular systolic function is moderate to severely reduced. There is moderate to severe global hypokinesis of the left ventricle. There is no thrombus. There is no ventricular septal defect visualized. Right Ventricle The right ventricle is grossly normal size. The right ventricle is not well visualized secondary to technical limitations. Atria The right atrium is normal in size. The left atrial size is normal. The interatrial septum is intact with no evidence for an atrial septal defect. Mitral Valve There is no evidence of mitral valve prolapse. There is no vegetation seen on the mitral valve. There is no mitral valve stenosis. There is a mild amount of mitral regurgitation. Aortic Valve The aortic valve is trileaflet. The aortic valve opens well. There is no aortic valvular vegetation. There is no aortic valve stenosis. There is no LVOT obstruction. No aortic regurgitation is present. Tricuspid Valve There is no tricuspid stenosis. There is a mild amount of tricuspid regurgitation. There is mild pulmonary hypertension by echo. RVSP is 36 to 41 mm of Hg , with RA mean of 5 to 10. Pulmonic Valve There is no pulmonic valvular stenosis. There is no pulmonic valvular regurgitation. Great Vessels The aortic root is mildly dilated. Effusions There is no pericardial effusion. : MERARI BARONE > Charlee Pate
== END 2016-08-05 18:30 | disposition home health service (06) | DRG 293 ==
LOC: ER 00:49 → EH 07:40 → UNDOADMOB 07:40 → EH 08:36 → 5 16:01 → OBSVTOIN 08-04 10:41
PROVIDERS: ADMIT Family Medicine; ATTEND Family Medicine
DX: I50.21 Acute systolic (congestive) heart failure (principal); R20.2 Paresthesia of skin; I10 Essential (primary) hypertension; R31.9 Hematuria, unspecified; R33.9 Retention of urine, unspecified; N40.0 Benign prostatic hyperplasia without lower urinary tract symptoms; R97.20 Elevated prostate specific antigen [PSA]; Z91.14 Patient's other noncompliance with medication regimen
CPT/HCPCS: 36415; 70544; 70551; 71010; 71275; 74176; 78452; 80048; 80053; 80061; 80307; 81001; 82550; 82553; 83735; 84153; 84443; 84484; 85025; 85610; 85730; 87086; 93005; 93010; 93017; 93306; 93880; 99285; A9500; G0378; J0360; J1170; J1940; J2785; J3490; Q9969

== ENCOUNTER 2016-08-12 20:40 | Emergency (ER) | payer SELFPAY ==
--- NOTE | 2016-08-12 21:44 | ER Document Report ---
ED General - General Stated Complaint: URINARY RETENTION Time seen by provider: 21:41 Mode of Arrival: Medic Information source: Patient Notes: This is a 61-year-old man with a recent admission for CHF also has a history of BPH, urinary retention and an elevated PSA (he has an appointment with Dr. Ross of urology in [place] on September 01). The patient is brought in by EMS because of acute urinary retention. Patient did leave the hospital with a Miranda in place and the Miranda was removed earlier today at noon. Since that time , he is not been able to urinate. TRAVEL OUTSIDE OF THE [place] IN LAST 30 DAYS: No - HPI Onset: Just prior to arrival Onset/Duration: Sudden Quality of pain: No pain Severity: None Pain Level: Denies Associated symptoms: None. denies: Chills, Fever Exacerbated by: Denies Relieved by: Denies Similar symptoms previously: Yes Recently seen / treated by doctor: Yes - Related Data Allergies/Adverse Reactions: No Known Allergies Allergy (Unverified 08/01/16 01:56) Past Medical History - General Information source: Patient - Social History Smoking Status: Never Smoker Cigarette use (# per day): No Chew tobacco use (# tins/day): No Frequency of alcohol use: None Drug Abuse: None Lives with: Alone Family History: Reviewed & Not Pertinent - Past Medical History Cardiac Medical History: Reports: Hx Hypertension Denies: Hx Congestive Heart Failure, Hx Heart Attack Pulmonary Medical History: Denies: Hx Asthma, Hx Bronchitis, Hx COPD, Hx Pneumonia, Hx Tuberculosis Neurological Medical History: Denies: Hx Seizures Renal/ Medical History: Reports: Hx Kidney Stones. Denies: Hx Benign Prostatic Hyperplasia, Hx End Stage Renal Disease, Hx Peritoneal Dialysis GI Medical History: Denies: Hx Cirrhosis, Hx Gastroesophageal Reflux Disease, Hx Ulcer Musculoskeltal Medical History: Denies Hx Arthritis, Denies Hx Multiple Sclerosis Psychiatric Medical History: Denies: Hx Bipolar Disorder, Hx Depression, Hx Schizophrenia Past Surgical History: Reports: Hx Orthopedic Surgery - Immunizations Hx Diphtheria, Pertussis, Tetanus Vaccination: No Review of Systems - Review of Systems Constitutional: denies: Chills, Fever EENT: No symptoms reported Cardiovascular: No symptoms reported Respiratory: No symptoms reported Gastrointestinal: No symptoms reported Genitourinary: See HPI Male Genitourinary: No symptoms reported Musculoskeletal: No symptoms reported Skin: No symptoms reported Hematologic/Lymphatic: No symptoms reported Neurological/Psychological: No symptoms reported Physical Exam - Vital signs Notes: Physical exam: GENERAL: 89-year-old man, alert and oriented 3, no acute distress HEAD: Atraumatic, normocephalic. EYES: Pupils equal round and reactive to light, extraocular movements intact, sclera anicteric, conjunctiva are normal. ENT: TMs normal, nares patent, oropharynx clear without exudates. Moist mucous membranes. NECK: Normal range of motion, supple without lymphadenopathy or JVD. LUNGS: Breath sounds clear to auscultation bilaterally and equal. No wheezes rales or rhonchi. HEART: Regular rate and rhythm without murmurs, rubs or gallops. ABDOMEN: Soft, normoactive bowel sounds. No tenderness to palpation. No guarding, no rebound. No masses appreciated. EXTREMITIES: Normal range of motion, no pitting or edema. No clubbing or cyanosis. NEUROLOGICAL: Cranial nerves II through XII grossly intact. Normal speech, normal gait. PSYCH: Normal mood, normal affect. SKIN: Warm, Dry, normal turgor, no rashes or lesions noted. Course - Re-evaluation Re-evalutation: 08/12/16 21:42 Miranda was placed, 800 mL of urine was liberated. Patient's symptoms resolved. Currently, patient is sitting in chair, comfortable, no distress, no complaints. He states he is ready to go home. Discharge - Discharge Clinical Impression: acute urinary retention Condition: Stable Disposition: HOME, SELF-CARE Additional Instructions: Recommendations: Keep Miranda in place. Continue current medicines. Follow-up with Dr. Ross as planned on September 01. Alternatively, if you can get in to see another urologist earlier that would be okay as well: [facility] [place] Office [address] [place], [place] [phone] [place] Office [address] [place], [place] [phone] Return to the emergency room for any fever, pain or any concerns he getting worse for
[2016-08-13 06:27] VITALS: BP 157/88
== END 2016-08-12 22:10 | disposition home or self-care (01) ==
LOC: ER 20:40
DX: R33.9 Retention of urine, unspecified (principal); I50.9 Heart failure, unspecified; R97.20 Elevated prostate specific antigen [PSA]
CPT/HCPCS: 51702; 99283

== ENCOUNTER 2016-12-22 22:14 | Emergency (ER) | payer MEDICAID, OTHER ==
--- NOTE | 2016-12-22 22:39 | ER Document Report ---
ED General - General Stated Complaint: CHEST PAIN Time Seen by Provider: 12/22/16 22:38 Notes: Patient is a 61-year-old male presents with complaint of chest pain. He has a pinpoint area of pain over the left lower rib. This just above his abdomen. He says whenever he pushes on this area hurts. If he sits up or moves in a certain way it hurts. He does have history of congestive heart failure with cardiomyopathy. No history of coronary disease. He had a negative nuclear cardiac stress test in July of this year. Denies any fevers. He says he frequently gets chest pain but today was low but different and therefore he came to the ER. Pain started while he was at a sleep study. He is followed by Dr. Carter, menswear salesperson. He has no other complaints at this time. TRAVEL OUTSIDE OF THE [place] IN LAST 30 DAYS: No - Related Data Allergies/Adverse Reactions: No Known Allergies Allergy (Verified 08/13/16 06:19) Past Medical History - Social History Smoking Status: Unknown if Ever Smoked Frequency of alcohol use: None Drug Abuse: None Family History: Reviewed & Not Pertinent - Past Medical History Cardiac Medical History: Reports: Hx Hypertension Denies: Hx Congestive Heart Failure, Hx Heart Attack Pulmonary Medical History: Denies: Hx Asthma, Hx Bronchitis, Hx COPD, Hx Pneumonia, Hx Tuberculosis Neurological Medical History: Denies: Hx Seizures Renal/ Medical History: Reports: Hx Kidney Stones. Denies: Hx Benign Prostatic Hyperplasia, Hx End Stage Renal Disease, Hx Peritoneal Dialysis GI Medical History: Denies: Hx Cirrhosis, Hx Gastroesophageal Reflux Disease, Hx Ulcer Musculoskeltal Medical History: Denies Hx Arthritis, Denies Hx Multiple Sclerosis Psychiatric Medical History: Denies: Hx Bipolar Disorder, Hx Depression, Hx Schizophrenia Past Surgical History: Reports: Hx Orthopedic Surgery - Immunizations Hx Diphtheria, Pertussis, Tetanus Vaccination: No Review of Systems - Review of Systems Notes: My Normal Review Basic REVIEW OF SYSTEMS: CONSTITUTIONAL : Denies fever, chills, or sweats. Denies recent illness. EENT: Denies eye, ear, throat, or mouth pain or symptoms. Denies nasal or sinus congestion. CARDIOVASCULAR: Has chest pain RESPIRATORY: Denies cough, cold, or chest congestion. Denies shortness of breath, difficulty breathing, or wheezing. GASTROINTESTINAL: Denies abdominal pain. Denies nausea, vomiting, or diarrhea. Denies constipation. Last BM: MUSCULOSKELETAL: Denies neck or back pain or joint pain or swelling. SKIN: Denies rash or skin lesions. NEUROLOGICAL: Denies altered mental status or loss of consciousness. ALL OTHER SYSTEMS REVIEWED AND NEGATIVE. Physical Exam - Vital signs Vitals: Resp Pulse Ox 14 96 12/22/16 22:27 12/22/16 22:27 - Notes Notes: General Appearance: Well nourished, alert, cooperative, no acute distress, mild obvious discomfort. Vitals: reviewed, See vital signs table. Head: no swelling or tenderness to the head Eyes: PERRL, EOMI, Conjuctiva clear Mouth: No decreasd moisture Neck: Supple, no neck tenderness Chest wall: Patient has an area of pinpoint tenderness over the anterior rib on the left lower chest wall. Patient points this area. When I touch the area he comes off the bed and screams because is very painful to push right over this area. Patient said that the same pain he has that he is complaining of it is made much worse when I touch the area. Patient also has increased pain when he goes to sit up or flexes over the area where that rib is. Lungs: No wheezing, No rales, No rhonci, No accessory muscle use, good air exchange bilaterally. Heart: Normal rate, Regular rythm, No murmur, no rub Abdomen: Normal BS, soft, No rigidity, No abdominal tenderness, No guarding, no rebound, no abdominal masses, no organomegaly Extremities: strength 5/5 in all extremities, good pulses in all extremities, no swelling or tenderness in the extremities, no edema. Skin: warm, dry, appropriate color, no rash Neuro: speech clear, oriented x 3, normal affect, responds appropriately to questions. Course - Re-evaluation Re-evalutation: 12/23/16 03:16 Clinically the patient's chest pain seems very much musculoskeletal. His pain is pinpoint over a single rib on the left side at the level of his diaphragm. Every time I barely touch his area he has severe pain. If he goes to sit up or move it also causes severe pain. His EKG and repeat EKG are negative. His troponin delta troponin are within normal range. He had a recent negative nuclear stress test just 4 months ago. At this time I feel he is safe to be discharged home. I encouraged her to still follow closely with his doctor in the next 1-2 days for close reevaluation. I strongly encouraged to return to ER if he has increasing pain, difficulty breathing, or change the location of his pain. Patient agrees with plan and will be discharged home. Dictation of this chart was performed using voice recognition software; therefore, there may be some unintended grammatical errors. - Vital Signs Vital signs: Temp Pulse Resp BP Pulse Ox 15 170/96 H 95 12/23/16 02:01 12/23/16 02:01 12/23/16 02:01 - Laboratory Result Diagrams: 12/22/16 22:38 12/22/16 23:14 Laboratory results interpreted by me: 12/22/16 12/22/16 22:38 23:14 Plt Count 113 L Sodium 136.8 L Glucose 218 H - EKG Interpretation by Me Additional EKG results interpreted by me: 12/22/16 22:38 EKG is reviewed and interpreted by me. EKG shows normal sinus rhythm with a rate of [address] segment elevation. Patient does have some T-wave inversions in the lateral and lateral precordial leads which are unchanged in comparison to his old EKG from August 01, 2016. ME interval, QRS duration, QTc intervals are within normal range. 12/23/16 03:11 EG #2 is reviewed and interpreted by me. EKG shows sinus bradycardia with a rate of [address] segment elevation or depression. Patient does have the same T-wave inversions in the lateral and lateral precordial leads which again are unchanged in comparison to his previous EKGs. No acute changes. Discharge - Discharge Clinical Impression: Rib pain on left side Chest pain Qualifiers: Chest pain type: unspecified Qualified Code(s): R07.9 - Chest pain, unspecified Condition: Good Disposition: HOME, SELF-CARE Additional Instructions: CHEST PAIN OF UNCLEAR CAUSE: The exact cause of your chest pain isn't clear. Fortunately, there is no evidence of a dangerous medical condition. Further testing may be required to find the source of the pain. Most often, we find that this pain is coming from the chest wall -- the muscles or rib joints in the chest. But chest pain can come from the lung and lung lining, the esophagus, the heart valves or heart lining, and even the stomach or gallbladder. Rest. Eat lightly until the pain is gone. We may prescribe medicine for pain and inflammation. You should call the physician immediately if the pain radiates to the shoulder, jaw or arms; if you start to run a fever or develop a cough; or if you develop shortness of breath, or other new or alarming symptoms. NORMAL EXAM AND WORKUP: At this time, your examination and workup show no significant abnormality. No significant abnormal physical findings were noted. All laboratory, EKG, and imaging (x-ray) studies that were ordered show no significant abnormality. Although your examination and all studies that were ordered showed no significant abnormal finding, there are no examinations and no studies that are 100% accurate. There is always the possibility that some abnormality could exist and not be detected with physical examination or within the limits and capabilities of laboratory and other studies. You should return or follow up as you were instructed on your visit today for further evaluation if your symptoms do not resolve. CHEST WALL PAIN: Your chest pain may be coming from the chest wall. This is often caused by straining the muscles or joints in the chest during physical activity, direct trauma, coughing, or vigorous vomiting. Persons with arthritis are especially prone to this type of pain, due to inflammation of the cartilage joints near the breast bone. Occasionally, no cause can be found. Rest from strenuous physical activity. This kind of chest pain is usually made worse by movement of the chest. Depending on the symptoms, we may prescribe medicine for pain, muscle relaxation, and antiinflammatory effects. If the pain is new, and seems to be due to muscle strain, cold packs can help. Otherwise, apply gentle warmth to the painful area for 15 minutes every hour or two. You should call contact the doctor immediately if things change. Further evaluation is needed if you develop a fever or cough, if the nature of the pain changes, or if you become short of breath. ORAL NARCOTIC MEDICATION: You have been given a prescription for pain control. This medication is a narcotic. It's best taken with food, as nausea can result if taken on an empty stomach. Don't operate machinery or drive within six hours of taking this medication. Do not combine this medicine with alcohol, or with any medication which can cause sedation (such as cold tablets or sleeping pills) unless you get permission from the physician. Narcotics tend to cause constipation. If possible, drink plenty of fluids and eat a diet high in fiber and fruits. Please be aware that prescription narcotics also have the potential for abuse. People become addicted to these medications because of the general sense of wellbeing that they induce. This feeling along with a significant reduction in tension, anxiety, and aggression provides a stimulating seductive quality to these drugs. Once your pain is under control, we encourage you to discard your unused narcotics. FOLLOW-UP CARE: If you have been referred to a physician for follow-up care, call the physician s office for an appointment as you were instructed or within the next two days. If you experience worsening or a significant change in your symptoms, notify the physician immediately or return to the Emergency Department at any time for re-evaluation. Please follow-up with your machine burrer, Dr. Carter, in 1-2 days for close reevaluation. Please return to the ER immediately if you have worsening pain, change in location of your pain, difficulty breathing, fevers, or feel that you are worsening in any way. Prescriptions: Tramadol HCl [Ultram 50 mg Tablet] 50 mg PO Q6HP PRN #20 tablet PRN Reason: Referrals: STEFANIA HURLEY MD [ACTIVE STAFF] - Follow up tomorrow
[2016-12-22 22:49] LABS: ABSOLUTE BASOPHILS # (AUTO) 0.1 10^3/uL (0.0-0.2); ABSOLUTE EOSINOPHILS # (AUTO) 0.2 10^3/uL (0.0-0.6); ABSOLUTE LYMPHOCYTES (AUTO) 1.6 10^3/uL (0.5-4.7); ABSOLUTE MONOCYTES (AUTO) 0.7 10^3/uL (0.1-1.4); ABSOLUTE NEUT (AUTO) 6.8 10^3/uL (1.7-8.2); BASOPHILS % (AUTO) 0.6 % (0-2); EOSINOPHILS % (AUTO) 2.2 % (0-6); HEMATOCRIT 43.5 % (37.9-51.0); HEMOGLOBIN 15.5 g/dL (13.5-17.0); LYMPHOCYTES % (AUTO) 16.8 % (13-45); MEAN CORPUSCULAR HEMOGLOBIN 32.3 pg (27.0-33.4); MEAN CORPUSCULAR HGB CONC 35.6 g/dL (32.0-36.0); MEAN CORPUSCULAR VOLUME 91 fl (80-97); MONOCYTES % (AUTO) 7.2 % (3-13); RED BLOOD COUNT 4.79 10^6/uL (4.35-5.55); RED CELL DISTRIBUTION WIDTH 13.9 % (11.5-14.0); SEGMENTED NEUTROPHILS % (AUTO) 73.2 % (42-78); WHITE BLOOD COUNT 9.3 10^3/uL (4.0-10.5)
--- NOTE | 2016-12-22 22:58 | RADIOLOGY REPORT (SQ) ---
EXAM DESCRIPTION: CHEST SINGLE VIEW COMPLETED DATE/TIME: 12/22/2016 10:35 pm REASON FOR STUDY: cp COMPARISON: 08/01/2016 EXAM PARAMETERS: NUMBER OF VIEWS: One view. TECHNIQUE: Single frontal radiographic view of the chest acquired. RADIATION DOSE: NA LIMITATIONS: None. FINDINGS: LUNGS AND PLEURA: No acute opacities, masses or pneumothorax. Similar chronic interstitia l changes. No pleural effusion. MEDIASTINUM AND HILAR STRUCTURES: Stable. HEART AND VASCULAR STRUCTURES: Stable. BONES: No acute findings. HARDWARE: None in the chest. OTHER: No other significant finding. IMPRESSION: NO ACUTE RADIOGRAPHIC FINDING IN THE CHEST. TECHNICAL DOCUMENTATION: JOB ID: [id number]
[2016-12-22] MEDS ORDERED: MORPHINE SULFATE 10 MG/ML INJ IV ONE (23:13)
[2016-12-22 23:47] LABS: ALANINE AMINOTRANSFERASE 40 U/L (21-72); ALBUMIN 3.9 g/dL (3.5-5.0); ALKALINE PHOSPHATASE 96 U/L (38-126); ANION GAP 9 (5-19); ASPARTATE AMINO TRANSFERASE 23 U/L (17-59); BILIRUBIN,DIRECT 0.4 mg/dL (0.0-0.4); BILIRUBIN,TOTAL 0.6 mg/dL (0.2-1.3); BLOOD UREA NITROGEN 18 mg/dL (7-20); CALCIUM 9.3 mg/dL (8.4-10.2); CARBON DIOXIDE 28 mmol/L (22-30); CHLORIDE 100 mmol/L (98-107); CREATINE KINASE 76 U/L (55-170); CREATININE RESULT 0.97 mg/dL (0.52-1.25); GLUCOSE 218 mg/dL (75-110); SODIUM 136.8 mmol/L (137-145); TOTAL PROTEIN 6.4 g/dL (6.3-8.2)
[2016-12-22 23:53] LABS: CREATINE KINASE MB 1.3 ng/mL (<4.55)
[2016-12-22 23:56] LABS: TROPONIN I 0.014 ng/mL
[2016-12-23 03:28] VITALS: BP 155/88
--- NOTE | 2016-12-23 11:50 | EKG REPORT ---
SEVERITY:- NORMAL ECG - SINUS RHYTHM : Confirmed by: Kandice Augustin 23-Dec-2016 11:50:20
--- NOTE | 2016-12-23 11:50 | EKG REPORT ---
SEVERITY:- ABNORMAL ECG - SINUS RHYTHM ABNORMAL T, CONSIDER ISCHEMIA, LATERAL LEADS : Confirmed by: Kandice Augustin 23-Dec-2016 11:50:11
== END 2016-12-23 03:20 | disposition home or self-care (01) ==
LOC: ER 22:14
DX: R07.81 Pleurodynia (principal); I42.9 Cardiomyopathy, unspecified; I10 Essential (primary) hypertension; R00.1 Bradycardia, unspecified
CPT/HCPCS: 93005 ×2; 99285; 96374; 36415; 82553; 82550; 85025; 80053; 84484; 71010; 93010 ×2; J2270

== ENCOUNTER 2017-03-06 13:57 | Emergency (ER) | payer MEDICAID, OTHER ==
--- NOTE | 2017-03-06 14:04 | ER Document Report ---
ED General - General Stated Complaint: WEAKNESS Time Seen by Provider: 03/06/17 14:04 Notes: 62-year-old male to emergency department chief complaint of headache and dizziness, weakness. Patient states that he was standing on a ladder when he felt dizzy. States that he has chronic weakness and chronic numbness of the left arm but it got worse today. Denies any chest pain. Some dizziness. Does not feel well. Denies any fever, chills, sweats. Denies any chest pain or shortness of breath. Patient is concerned because a sister had an aneurysm. Had a recent hospitalization with full complete workup. TRAVEL OUTSIDE OF THE [place] IN LAST 30 DAYS: No - HPI Onset: Just prior to arrival Onset/Duration: Sudden Quality of pain: No pain Severity: Moderate Pain Level: 0 - Related Data Allergies/Adverse Reactions: No Known Allergies Allergy (Verified 08/13/16 06:19) Past Medical History - General Information source: Patient - Social History Smoking Status: Never Smoker Frequency of alcohol use: None Drug Abuse: None Lives with: Spouse/Significant other Family History: Other - Patient states family history of aneurysms - Past Medical History Cardiac Medical History: Reports: Hx Hypertension Denies: Hx Congestive Heart Failure, Hx Heart Attack Pulmonary Medical History: Denies: Hx Asthma, Hx Bronchitis, Hx COPD, Hx Pneumonia, Hx Tuberculosis Neurological Medical History: Denies: Hx Seizures Renal/ Medical History: Reports: Hx Kidney Stones. Denies: Hx Benign Prostatic Hyperplasia, Hx End Stage Renal Disease, Hx Peritoneal Dialysis GI Medical History: Denies: Hx Cirrhosis, Hx Gastroesophageal Reflux Disease, Hx Ulcer Musculoskeltal Medical History: Denies Hx Arthritis, Denies Hx Multiple Sclerosis Psychiatric Medical History: Denies: Hx Bipolar Disorder, Hx Depression, Hx Schizophrenia Past Surgical History: Reports: Hx Orthopedic Surgery - Immunizations Hx Diphtheria, Pertussis, Tetanus Vaccination: No Review of Systems - Review of Systems Constitutional: Malaise, Weakness EENT: Blurred vision Cardiovascular: Dizziness, Lightheaded Respiratory: No symptoms reported Gastrointestinal: No symptoms reported Genitourinary: No symptoms reported Musculoskeletal: No symptoms reported Skin: No symptoms reported Hematologic/Lymphatic: No symptoms reported Neurological/Psychological: Sensory change, Weakness, Headaches. denies: Lost consciousness Physical Exam - Vital signs Vitals: Resp Pulse Ox 16 96 03/06/17 14:10 03/06/17 14:10 Interpretation: Normal - General General appearance: Appears well, Alert - HEENT Head: Normocephalic, Atraumatic Eyes: Normal Pupils: PERRL Fundascopic: Normal Sinus: Normal Nasal: Normal Mouth/Lips: Normal Mucous membranes: Normal Neck: Normal, Supple. No: Carotid bruit, Lymphadenopathy, Meningismus, Neck mass, Subcutaneous emphysema - Respiratory Respiratory status: No respiratory distress Chest status: Nontender Breath sounds: Normal Chest palpation: Normal - Cardiovascular Rhythm: Regular Heart sounds: Normal auscultation Murmur: No - Abdominal Inspection: Normal Distension: No distension Bowel sounds: Normal Tenderness: Nontender Organomegaly: No organomegaly - Back Back: Normal, Nontender - Extremities General upper extremity: Normal inspection, Nontender, Normal color, Normal ROM , Normal temperature General lower extremity: Normal inspection, Nontender, Normal color, Normal ROM , Normal temperature, Normal weight bearing. No: Karma's sign - Neurological Neuro grossly intact: Yes Cognition: Normal Orientation: AAOx4 Sherman Coma Scale Eye Opening: Spontaneous [place] Coma Scale Verbal: Oriented [place] Coma Scale Motor: Obeys Commands Sherman Coma Scale Total: 15 Speech: Normal Cranial nerves: Normal Cerebellar coordination: Normal Motor strength normal: LUE, RUE, LLE, RLE Additional motor exam normals: No: Pronator drift Sensory: Normal - Psychological Associated symptoms: Normal affect, Normal mood - Skin Skin Temperature: Warm Skin Moisture: Dry Skin Color: Normal Course - Re-evaluation Re-evalutation: 03/06/17 15:24 This is a well-appearing male in no acute distress. Review of medical record reveals a recent and extremely extensive workup as an inpatient. Workup included stress test, MRA of the brain, MRI of the brain, CT angiogram of the aorta, CT scan of the abdomen and pelvis, chest x-rays, labs, EKGs, echocardiogram, carotid ultrasound etc. Patient has a nonfocal neurological exam at this time. I believe patient has a large amount of anxiety. No doubt that he may have some significant risk factors but patient has had all of the risk stratification studies in my opinion at this time that is warranted. He is being followed at this time by a special warfare combatant crewman. Patient does have some elevated glucose but this appears to be chronic as well. Does have large amount of glucose in the urine. 03/06/17 15:26 03/06/17 16:22 Lipid panel could be improved. Patient is on atorvastatin. On standard of care at this time with the exception of blood glucose management. A1c of 8.5 so obviously patient is a diabetic. Gave him some fluid in the ER to help bring down the blood sugar as well as the metformin given in the ER. We will start him on 500 mg p.o. twice daily. Will advise him on low carbohydrate diet with regards to glucose control. Patient has a primary care provider that he is scheduled to see here shortly, Dr. Brasher. I have instructed patient's as well as the patient follow-up with Dr. Brasher for management of his new diagnosis of diabetes, hypertension control, risk stratification for other conditions. Patient is comfortable with this plan. Workup today is unremarkable. Patient has all of the above studies already performed in the last 6 months so I do not feel patient needs any further intervention at this time. 03/06/17 16:22 - Vital Signs Vital signs: Temp Pulse Resp BP Pulse Ox 98.8 F 14 132/98 H 92 03/06/17 14:12 03/06/17 15:25 03/06/17 15:25 03/06/17 15:25 - Laboratory Result Diagrams: 03/06/17 14:12 03/06/17 14:12 Laboratory results interpreted by me: 03/06/17 03/06/17 03/06/17 14:12 14:12 14:12 Plt Count 137 L Sodium 136.8 L Potassium 5.2 H BUN 23 H Glucose 274 H Hemoglobin A1c % Direct Bilirubin 0.5 H Triglycerides LDL Cholesterol Direct VLDL Cholesterol HDL Cholesterol Urine Glucose (UA) >=500 H 03/06/17 03/06/17 14:12 14:12 Plt Count Sodium Potassium BUN Glucose Hemoglobin A1c % 8.5 H Direct Bilirubin Triglycerides 181 H LDL Cholesterol Direct 117 H VLDL Cholesterol 36.2 H HDL Cholesterol 33 L Urine Glucose (UA) - EKG Interpretation by Me EKG shows normal: Sinus rhythm, [place], Intervals, QRS Complexes. abnormal: ST-T Waves - Patient does have inverted T-wave/Biphasic T-wave in V6 and aVL. There is no significant change from prior EKG that was performed on 12/22/16 Discharge - Discharge Clinical Impression: Diabetes type 2, uncontrolled Qualifiers: Diabetes mellitus complication status: with hyperglycemia Diabetes mellitus fci insulin use: without terminal carman use Qualified Code(s): E11.65 - Type 2 diabetes mellitus with hyperglycemia Headache Qualifiers: Headache type: unspecified Headache chronicity pattern: acute headache Intractability: not intractable Qualified Code(s): R51 - Headache Condition: Good Disposition: HOME, SELF-CARE Instructions: Diabetes ([facility]), Headache ([facility]), High Blood Pressure ([facility]) Additional Instructions: Return immediately if you develop any worsening symptoms or concerns. Prescriptions: Metformin HCl [Glucophage 500 mg Tablet] 500 mg PO BID 30 Days #60 tablet Forms: Elevated Blood Pressure
[2017-03-06 14:45] LABS: ABSOLUTE EOSINOPHILS # (AUTO) 0.1 10^3/uL (0.0-0.6); ABSOLUTE LYMPHOCYTES (AUTO) 1.4 10^3/uL (0.5-4.7); ABSOLUTE MONOCYTES (AUTO) 0.8 10^3/uL (0.1-1.4); ABSOLUTE NEUT (AUTO) 7.6 10^3/uL (1.7-8.2); BASOPHILS % (AUTO) 0.5 % (0-2); HEMATOCRIT 48.3 % (37.9-51.0); HEMOGLOBIN 16.9 g/dL (13.5-17.0); HGB HCT DIFFERENCE 2.4; LYMPHOCYTES % (AUTO) 14.1 % (13-45); MEAN CORPUSCULAR HEMOGLOBIN 30.9 pg (27.0-33.4); MEAN CORPUSCULAR HGB CONC 34.9 g/dL (32.0-36.0); MEAN CORPUSCULAR VOLUME 89 fl (80-97); MONOCYTES % (AUTO) 7.9 % (3-13); RED BLOOD COUNT 5.46 10^6/uL (4.35-5.55); RED CELL DISTRIBUTION WIDTH 13.4 % (11.5-14.0); SEGMENTED NEUTROPHILS % (AUTO) 76.5 % (42-78); WHITE BLOOD COUNT 9.9 10^3/uL (4.0-10.5)
[2017-03-06 14:55] LABS: APPEARANCE,URINE CLEAR; BILIRUBIN,URINE NEGATIVE (NEGATIVE); GLUCOSE, URINE >=500 mg/dL (NEGATIVE); KETONES,URINE NEGATIVE (NEGATIVE); LEUKOCYTE ESTERASE,URINE NEGATIVE (NEGATIVE); NITRITE,URINE NEGATIVE (NEGATIVE); PROTEIN,URINE NEGATIVE (NEGATIVE); URINE SPECIFIC GRAVITY 1.006; UROBILINOGEN,URINE NEGATIVE mg/dL (<2.0)
--- NOTE | 2017-03-06 15:01 | RADIOLOGY REPORT (SQ) ---
EXAM DESCRIPTION: CT HEAD WITHOUT COMPLETED DATE/TIME: 03/06/2017 2:46 pm REASON FOR STUDY: Left arm numbness COMPARISON: MR brain from July. TECHNIQUE: Axial images acquired through the brain without intravenous contrast. Images reviewed wi th bone, brain and subdural windows. Images stored on PACS. All CT scanners at this facility use dose modulation, iterative reconstruction, and/or weight based d osing when appropriate to reduce radiation dose to as low as reasonably achievable (ALARA). [facility]: Dose Right [facility]: CareDose [facility]: Dose Right [facility]: Teradose 4D [facility]: Weblio RADIATION DOSE: mGy. LIMITATIONS: None. FINDINGS: VENTRICLES: Normal size and contour. CEREBRUM: No masses. No hemorrhage. No midline shift. No evidence for acute infarction. Normal gra y/white matter differentiation. No areas of low density in the white matter. CEREBELLUM: No masses. No hemorrhage. No alteration of density. No evidence for acute infarction. EXTRAAXIAL SPACES: No fluid collections. No masses. ORBITS AND GLOBE: No intra- or extraconal masses. Normal contour of globe without masses. CALVARIUM: No fracture. PARANASAL SINUSES: Chronic right maxillary mucosal thickening. No fluid levels. SOFT TISSUES: No mass or hematoma. OTHER: No other significant finding. IMPRESSION: 1. No acute intracranial abnormality. EVIDENCE OF ACUTE STROKE: NO. COMMENT: Quality ID # [id number]: Final reports with documentation of one or more dose reduction techniques (e.g., Automated exposure control, adjustment of the mA and/or kV according to patient size, use of iterative reconstruction technique) TECHNICAL DOCUMENTATION: JOB ID: [id number] [employer]- All Rights Reserved
[2017-03-06 15:04] LABS: ALANINE AMINOTRANSFERASE 53 U/L (21-72); ALBUMIN 4.3 g/dL (3.5-5.0); ALKALINE PHOSPHATASE 100 U/L (38-126); ANION GAP 11 (5-19); ASPARTATE AMINO TRANSFERASE 23 U/L (17-59); BILIRUBIN,DIRECT 0.5 mg/dL (0.0-0.4); BILIRUBIN,TOTAL 0.8 mg/dL (0.2-1.3); BLOOD UREA NITROGEN 23 mg/dL (7-20); CALCIUM 9.4 mg/dL (8.4-10.2); CARBON DIOXIDE 28 mmol/L (22-30); CHLORIDE 98 mmol/L (98-107); CREATINE KINASE 155 U/L (55-170); CREATININE RESULT 1.15 mg/dL (0.52-1.25); GLUCOSE 274 mg/dL (75-110); POTASSIUM 5.2 mmol/L (3.6-5.0); SODIUM 136.8 mmol/L (137-145); TOTAL PROTEIN 6.8 g/dL (6.3-8.2)
--- NOTE | 2017-03-06 15:04 | RADIOLOGY REPORT (SQ) ---
EXAM DESCRIPTION: CHEST SINGLE VIEW COMPLETED DATE/TIME: 03/06/2017 2:52 pm REASON FOR STUDY: sob COMPARISON: 12/22/2016. NUMBER OF VIEWS: One view. TECHNIQUE: Single frontal radiographic view of the chest acquired. LIMITATIONS: None. FINDINGS: LUNGS AND PLEURA: No opacities, masses or pneumothorax. No pleural effusion. MEDIASTINUM AND HILAR STRUCTURES: No masses. Contour normal. HEART AND VASCULAR STRUCTURES: Heart normal in size. Normal vasculature. BONES: No acute findings. HARDWARE: None in the chest. OTHER: No other significant finding. IMPRESSION: NO SIGNIFICANT RADIOGRAPHIC FINDING IN THE CHEST. TECHNICAL DOCUMENTATION: JOB ID: [id number] [employer]- All Rights Reserved
[2017-03-06 15:17] LABS: CREATINE KINASE MB 1.47 ng/mL (<4.55)
[2017-03-06 15:22] LABS: TROPONIN I < 0.012 ng/mL
[2017-03-06] MEDS ORDERED: NORMAL SALINE 1000 ML 1,000 ML IV ONE (15:28)
[2017-03-06] MEDS ORDERED: METFORMIN HCL 500 MG TABLET PO ONE (15:29)
[2017-03-06] MEDS ORDERED: ASPIRIN 81 MG TABLET, CHEWABLE PO ONE (15:30)
[2017-03-06] MEDS ORDERED: ACETAMINOPHEN 325 MG TABLET PO ONE (15:30)
[2017-03-06 15:54] LABS: CHOLESTEROL 172.77 mg/dL (0-200); Direct HDL 33 mg/dL (>40); TRIGLYCERIDES 181 mg/dL (<150)
[2017-03-06 16:04] LABS: DIRECT LDL 117 mg/dL (<100)
[2017-03-06 16:06] LABS: VLDL CHOLESTEROL 36.2 mg/dL (10-31)
[2017-03-06 16:33] VITALS: BP 138/93
--- NOTE | 2017-03-06 21:12 | EKG REPORT ---
SEVERITY:- BORDERLINE ECG - SINUS RHYTHM BORDERLINE T ABNORMALITIES, LATERAL LEADS : Confirmed by: Jaiden Marte MD 06-Mar-2017 21:11:59
== END 2017-03-06 16:41 | disposition home or self-care (01) ==
LOC: ER 13:57
DX: E11.65 Type 2 diabetes mellitus with hyperglycemia (principal); R53.1 Weakness; R51 Headache; R42 Dizziness and giddiness; R20.0 Anesthesia of skin; I10 Essential (primary) hypertension; H53.8 Other visual disturbances; Z82.49 Family history of ischemic heart disease and other diseases of the circulatory system; Z79.899 Other long term (current) drug therapy
CPT/HCPCS: 93005; 99285; 96360; 36415; 82553; 82550; 85025; 80053; 81001; 84484; 83036; 80061; 83880; 71010; 70450; 93010; J3490 ×2; J7030

== ENCOUNTER 2017-03-12 20:43 | Emergency (ER) | payer MEDICAID, OTHER ==
[2017-03-12 20:47] VITALS: BP 118/78
--- NOTE | 2017-03-12 22:13 | ER Document Report ---
ED General - General Chief Complaint: Fall Stated Complaint: FALL/ARM PAIN/ LEG PAIN Time Seen by Provider: 03/12/17 21:28 Notes: Patient is a 62-year-old male who presents with a multitude of complaints but states the main reason that he came was apparently after he fell when cleaning dishes. He states that he felt like his left leg gave out on him prompting him to fall down. He denies sustaining any injury during this event. He states " if I felt this good when they first got to my house I would not have come". He is uncertain what caused him to fall. He denies any specific pain to the left lower extremity. He does report chronic paresthesias to the left upper extremity but notes that this is not new or different today. He has not seen his primary care doctor regarding today's concerns but is currently following with them regarding the paresthesias of his left upper extremity. He denies any chest pain or shortness of breath. No syncope proceeding today's episode of falling. TRAVEL OUTSIDE OF THE [place] IN LAST 30 DAYS: No - Related Data Allergies/Adverse Reactions: No Known Allergies Allergy (Verified 08/13/16 06:19) Past Medical History - General Information source: Patient - Social History Smoking Status: Never Smoker Frequency of alcohol use: None Drug Abuse: None Lives with: Family Family History: Reviewed & Not Pertinent, Other - Patient states family history of aneurysms - Past Medical History Cardiac Medical History: Reports: Hx Hypertension Denies: Hx Congestive Heart Failure, Hx Heart Attack Pulmonary Medical History: Denies: Hx Asthma, Hx Bronchitis, Hx COPD, Hx Pneumonia, Hx Tuberculosis Neurological Medical History: Denies: Hx Seizures Renal/ Medical History: Reports: Hx Kidney Stones. Denies: Hx Benign Prostatic Hyperplasia, Hx End Stage Renal Disease, Hx Peritoneal Dialysis GI Medical History: Denies: Hx Cirrhosis, Hx Gastroesophageal Reflux Disease, Hx Ulcer Musculoskeltal Medical History: Denies Hx Arthritis, Denies Hx Multiple Sclerosis Psychiatric Medical History: Denies: Hx Bipolar Disorder, Hx Depression, Hx Schizophrenia Past Surgical History: Reports: Hx Orthopedic Surgery - Immunizations Hx Diphtheria, Pertussis, Tetanus Vaccination: No Review of Systems - Review of Systems Notes: Constitutional: Negative for fever. HENT: Negative for sore throat. Eyes: Negative for visual changes. Cardiovascular: Negative for chest pain. Respiratory: Negative for shortness of breath. Gastrointestinal: Negative for abdominal pain, vomiting or diarrhea. Genitourinary: Negative for dysuria. Musculoskeletal: Negative for back pain. Skin: Negative for rash. Neurological: Negative for headaches, weakness or numbness. 10 point ROS negative except as marked above and in HPI. Physical Exam - Vital signs Vitals: Temp Pulse Resp BP Pulse Ox 97.7 F 82 18 118/78 97 03/12/17 20:45 03/12/17 20:45 03/12/17 20:45 03/12/17 20:45 03/12/17 20:45 Interpretation: Normal Notes: PHYSICAL EXAMINATION: GENERAL: Well-appearing, well-nourished and in no acute distress. HEAD: Atraumatic, normocephalic. EYES: Pupils equal round and reactive to light, extraocular movements intact, sclera anicteric, conjunctiva are normal. ENT: nares patent, oropharynx clear without exudates. Moist mucous membranes. NECK: Normal range of motion, supple without lymphadenopathy LUNGS: Breath sounds clear to auscultation bilaterally and equal. No wheezes rales or rhonchi. HEART: Regular rate and rhythm without murmurs ABDOMEN: Soft, nontender, normoactive bowel sounds. No guarding, no rebound. No masses appreciated. EXTREMITIES: Normal range of motion, no pitting or edema. No cyanosis. NEUROLOGICAL: Face symmetric. Tongue protrudes midline. Extraocular motions intact. Pupils are 2 mm and equally reactive. Normal speech, normal gait. 5 out of 5 strength in both the distal and proximal upper and lower extremities bilaterally. Sensation is grossly intact throughout. Finger to nose testing normal. Pronator drift normal. PSYCH: Normal mood, normal affect. SKIN: Warm, Dry, normal turgor, no rashes or lesions noted. Course - Re-evaluation Re-evalutation: 03/12/17 22:12 Patient presents with multiple vague complaints that did not appear to be concerning for any acute life-threatening pathology. Patient states that he feels like his left leg gave out on him today while he was standing at the sink which is what prompted EMS to be contacted. Neurologic exam is unremarkable. Patient had an extensive evaluation including MRA and MRI of the head, [place], and neck back in July all of which was unremarkable. Vitals are within normal limits at triage and at time of discharge. Physical examination is unremarkable. Patient has tolerated oral intake without difficulty. Patient was not noted to be in distress at any point during their ER visit. At this time, based on the reassuring evaluation, I do not suspect an acute OR, pulmonary embolus, aortic dissection, acute intra-abdominal pathology, stroke, or sepsis.Will discharge with return precautions and follow-up recommendations. Verbal discharge instructions given a the bedside and opportunity for questions given. Medication warnings reviewed. Patient is in agreement with this plan and has verbalized understanding of return precautions and the need for primary care follow-up in the next 24-72 hours. - Vital Signs Vital signs: Temp Pulse Resp BP Pulse Ox 97.7 F 82 18 118/78 97 03/12/17 20:45 03/12/17 20:45 03/12/17 20:45 03/12/17 20:45 03/12/17 20:45 Discharge - Discharge Clinical Impression: Paresthesia and pain of left extremity Fall Qualifiers: Encounter type: initial encounter Qualified Code(s): W19.XXXA - Unspecified fall, initial encounter Condition: Good Disposition: HOME, SELF-CARE Additional Instructions: Please return to the emergency room immediately if you experience any concerning symptoms including high fevers, severe headache, chest pain, difficulty breathing, abdominal pain, slurred speech, numbness or weakness in your arms or legs, or any other symptom that concerns you. Referrals: STEFANIA RANDLE MD [Primary Care Provider] - Follow up as needed
== END 2017-03-12 23:56 | disposition home or self-care (01) ==
LOC: ER 20:43
DX: R20.0 Anesthesia of skin (principal); M79.605 Pain in left leg; W19.XXXA Unspecified fall, initial encounter
CPT/HCPCS: 99283

== ENCOUNTER → 2017-03-12 | Outpatient (CLI) | payer MEDICAID, OTHER ==
--- NOTE | 2017-03-12 14:11 | RADIOLOGY REPORT (SQ) ---
EXAM DESCRIPTION: CERV SP 4 OR 5 VIEWS COMPLETED DATE/TIME: 03/12/2017 1:23 pm REASON FOR STUDY: CHRONIC NECK PAIN, HISTORY OF LUMBAR FUSION M54.2 CERVICALGIA Z98.1 ARTHRODESIS STATUS COMPARISON: None. NUMBER OF VIEWS: Five views. TECHNIQUE: AP, lateral, obliques and odontoid radiographic images acquired of the cervical spine. LIMITATIONS: None. FINDINGS: MINERALIZATION: Normal. ALIGNMENT: Anatomic. VERTEBRAE: Vertebral bodies of normal height. DISCS: There is narrowing at C5-6 with anterior osteophytes. FORAMINA: No osteophytes or foraminal narrowing. LATERAL AND POSTERIOR ELEMENTS: Facets, lateral masses and spinous processes without significant find ings. HARDWARE: None in the spine. SOFT TISSUES: No masses or calcifications. Lung apices clear. OTHER: No other significant finding. IMPRESSION: Degenerative disc disease. Mild spondylosis. TECHNICAL DOCUMENTATION: JOB ID: [id number] [employer]- All Rights Reserved
--- NOTE | 2017-03-12 14:14 | RADIOLOGY REPORT (SQ) ---
EXAM DESCRIPTION: L SPINE WHOLE COMPLETED DATE/TIME: 03/12/2017 1:23 pm REASON FOR STUDY: CHRONIC NECK PAIN, HISTORY OF LUMBAR FUSION M54.2 CERVICALGIA Z98.1 ARTHRODESIS STATUS COMPARISON: None. NUMBER OF VIEWS: Five views including obliques. TECHNIQUE: AP, lateral, oblique, and sacral radiographic images acquired of the lumbar spine. LIMITATIONS: None. FINDINGS: MINERALIZATION: Normal. SEGMENTATION: L5 appears to represent a transitional vertebra. ALIGNMENT: Normal. VERTEBRAE: Maintained height. No fracture or worrisome bone lesion. DISCS: Disc spaces are narrowed at L3-4 and L5-S1. POSTERIOR ELEMENTS: Pedicles and facets are intact. No pars defect or posterior arch defects. Later al fusions have been performed from L3 to L5. Hypertrophic facet changes are present in the lower fiona mbar spine. HARDWARE: None in the spine. PARASPINAL SOFT TISSUES: Normal. PELVIS: Intact as visualized. No fractures or worrisome bone lesions. SI joints intact. OTHER: No other significant finding. IMPRESSION: Degenerative disc disease, facet arthropathy. L5 represents a transitional vertebra. TECHNICAL DOCUMENTATION: JOB ID: [id number] [employer]- All Rights Reserved
== END ==
LOC: RAD 12:39
PROVIDERS: ATTEND Family Medicine
DX: M54.2 Cervicalgia (principal); Z98.1 Arthrodesis status; M51.36 Other intervertebral disc degeneration, lumbar region
CPT/HCPCS: 72050; 72110

== ENCOUNTER 2017-03-18 21:08 | Emergency (ER) | payer MEDICAID, OTHER ==
[2017-03-18] MEDS ORDERED: NORMAL SALINE 1000 ML 1,000 ML IV ONE ×2 (22:01→23:20)
[2017-03-18 22:06] LABS: ABSOLUTE EOSINOPHILS # (AUTO) 0.1 10^3/uL (0.0-0.6); ABSOLUTE LYMPHOCYTES (AUTO) 1.6 10^3/uL (0.5-4.7); ABSOLUTE NEUT (AUTO) 7.7 10^3/uL (1.7-8.2); BASOPHILS % (AUTO) 0.3 % (0-2); EOSINOPHILS % (AUTO) 1.3 % (0-6); HEMATOCRIT 45.8 % (37.9-51.0); HEMOGLOBIN 16.1 g/dL (13.5-17.0); HGB HCT DIFFERENCE 2.5; LYMPHOCYTES % (AUTO) 15.3 % (13-45); MEAN CORPUSCULAR HEMOGLOBIN 31.5 pg (27.0-33.4); MEAN CORPUSCULAR HGB CONC 35.3 g/dL (32.0-36.0); MEAN CORPUSCULAR VOLUME 89 fl (80-97); MONOCYTES % (AUTO) 9.1 % (3-13); RED BLOOD COUNT 5.13 10^6/uL (4.35-5.55); RED CELL DISTRIBUTION WIDTH 13.1 % (11.5-14.0); WHITE BLOOD COUNT 10.5 10^3/uL (4.0-10.5)
--- NOTE | 2017-03-18 22:08 | ER Document Report ---
ED General - General Chief Complaint: General Weakness Stated Complaint: WEAKNESS Time Seen by Provider: 03/18/17 21:42 TRAVEL OUTSIDE OF THE [place] IN LAST 30 DAYS: No - HPI Notes: Patient is a 62-year-old male with a history of hypertension diabetes who presents the ED complaining of ongoing generalized weakness primarily to his hands and legs on occasion throughout the day today. Patient states that he is still eating and drinking otherwise fine difficulties. He is taking his medicines at home as directed. He still urinating normally and having normal bowel movements. Patient denies any recent injury or illness. Patient was just evaluated 2 days ago for similar symptoms and evaluated about 12 days ago for something similar as well. Patient did have a thorough workup included stress test, MRA of the brain, MRI of the brain, CT angiogram of the aorta, CT scan of the abdomen and pelvis, chest x-rays, labs, EKGs, echocardiogram, carotid ultrasound etc about 6mos +/- ago. 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 Patient has not been evaluated for these complaints recently by either of these providers. No other concerns or complaints. Denies any headache, fever, head injury, neck pain, changes in vision/speech/mentation/hearing, URI, sore throat, chest pain, palpitations, syncope, cough, shortness of breath, wheeze, dyspnea, abdominal pain, nausea/vomiting/diarrhea, urinary retention, dysuria, hematuria, loss of control of bowel or bladder, saddle anesthesia, or rash. - Related Data Allergies/Adverse Reactions: No Known Allergies Allergy (Verified 03/18/17 21:53) Past Medical History - Social History Smoking Status: Unknown if Ever Smoked Family History: Reviewed & Not Pertinent, Other - Patient states family history of aneurysms - Past Medical History Cardiac Medical History: Reports: Hx Hypertension Denies: Hx Congestive Heart Failure, Hx Heart Attack Pulmonary Medical History: Denies: Hx Asthma, Hx Bronchitis, Hx COPD, Hx Pneumonia, Hx Tuberculosis Neurological Medical History: Denies: Hx Seizures Renal/ Medical History: Reports: Hx Kidney Stones. Denies: Hx Benign Prostatic Hyperplasia, Hx End Stage Renal Disease, Hx Peritoneal Dialysis GI Medical History: Denies: Hx Cirrhosis, Hx Gastroesophageal Reflux Disease, Hx Ulcer Musculoskeltal Medical History: Denies Hx Arthritis, Denies Hx Multiple Sclerosis Psychiatric Medical History: Denies: Hx Bipolar Disorder, Hx Depression, Hx Schizophrenia Past Surgical History: Reports: Hx Orthopedic Surgery - Immunizations Hx Diphtheria, Pertussis, Tetanus Vaccination: No Review of Systems - Review of Systems Notes: REVIEW OF SYSTEMS: CONSTITUTIONAL : Denies fever, chills, or sweats. Denies recent illness. EENT: Denies eye, ear, throat, or mouth pain or symptoms. Denies nasal or sinus congestion or discharge. Denies throat, tongue, or mouth swelling or difficulty swallowing. CARDIOVASCULAR: Denies chest pain. Denies palpitations or racing or irregular heart beat. Denies ankle edema. RESPIRATORY: Denies cough, cold, or chest congestion. Denies shortness of breath, difficulty breathing, or wheezing. GASTROINTESTINAL: Denies abdominal pain or distention. Denies nausea, vomiting , or diarrhea. GENITOURINARY: Denies difficulty urinating, painful urination, burning, frequency, blood in urine, or discharge. MUSCULOSKELETAL: see hpi. Denies back or neck pain or stiffness. Denies joint pain or swelling. SKIN: Denies rash, lesions or sores. NEUROLOGICAL: Denies confusion or altered mental status. Denies passing out or loss of consciousness. Denies dizziness or lightheadedness. Denies headache. Denies paralysis or loss of use of either side. Denies problems with speech. Denies sensory loss, numbness, or tingling. Denies seizures. PSYCHIATRIC: Denies anxiety or stress. Denies depression, suicidal ideation, or homicidal ideation. ALL OTHER SYSTEMS REVIEWED AND NEGATIVE. Dictation was performed using [employer] voice recognition software Physical Exam - Vital signs Notes: PHYSICAL EXAMINATION: GENERAL: Well-appearing, well-nourished and in no acute distress. A&Ox4 HEAD: Atraumatic, normocephalic. EYES: Pupils equal round and reactive to light, extraocular movements intact, sclera anicteric, conjunctiva are normal. ENT: Nares patent and without discharge. oropharynx clear without exudates. No tonsilar hypertrophy or erythema. Moist mucous membranes. NECK: Normal range of motion, supple without lymphadenopathy. No rigidity. No midline tenderness. Spurling negative. LUNGS: Breath sounds clear to auscultation bilaterally and equal. No wheezes rales or rhonchi. HEART: Regular rate and rhythm without murmurs, rubs, gallops. ABDOMEN: Soft, nontender, nondistended abdomen. No guarding, no rebound. No masses appreciated. Normal bowel sounds present. No CVA tenderness bilaterally. Musculoskeletal: Ext b/l: FROM to passive/active. Strength 5+/5. No deficits noted. No bony tenderness of extremities. Back: FROM to passive/active. Strength 5+/5. No vertebral point tenderness, stepoffs, or deformities. No other bony tenderness or ecchymosis. SLR negative b/l. Extremities: No cyanosis, clubbing, or edema b/l. Peripheral pulses 2+. Capillary refill less than 2 seconds. NEUROLOGICAL: NIH 0. MMSE intact. Cranial nerves grossly intact. Normal speech, normal gait. Normal sensory, motor exams. Reflexes 2+ b/l. TAMI's negative. Pronator drift negative. Heel/mathur, finger/nose wnl. Walking on heels /toes and heel to toe wnl. PSYCH: Normal mood, normal affect. SKIN: Warm, Dry, normal turgor, no rashes or lesions noted. Course - Re-evaluation Re-evalutation: 03/19/17 00:36 Patient is an afebrile, well-hydrated, 62-year-old male who presents the ED with subjective weakness. Vitals are stable. PE is otherwise unremarkable for any focal neurological deficits. NIH 0. MMSE intact. Patient had an unremarkable physical exam. CBC, CMP (aside from mild CKD), urinalysis was unremarkable for any acute pathology. Pt received 2L NS today. Patient had 2 other unremarkable workups over the last 2 weeks. Patient also had an extensive workup included stress test, MRA of the brain, MRI of the brain, CT angiogram of the aorta, CT scan of the abdomen and pelvis, chest x-rays, labs, EKGs, echocardiogram, carotid ultrasound etc about 6-7 months ago. Low suspicion for any acute glaucoma, temporal arteritis, meningitis, intracranial hemorrhage, ischemic stroke, disc herniation causing severe spinal stenosis, spinal abscess, sepsis, or fracture at this time. Patient is aware that his condition can change from initial presentation and that he needs to monitor symptoms closely for any acute changes. Recommend conservative measures for symptoms. Recheck with your PCM in 3-5 days. Consider consult with orthopedics and physical therapy. He may also consider consult with neurology. Return to the ED with any worsening/concerning symptoms otherwise as reviewed in discharge. Patient is in agreement. - Laboratory Result Diagrams: 03/18/17 21:20 03/18/17 21:20 Laboratory results interpreted by me: 03/18/17 03/18/17 03/18/17 21:20 21:20 22:15 Plt Count 140 L Chloride 97 L BUN 26 H Creatinine 1.44 H Est GFR (Non-Af Amer) 50 L Glucose 169 H POC Glucose 158 H Direct Bilirubin 0.6 H Urine Glucose (UA) 03/18/17 23:24 Plt Count Chloride BUN Creatinine Est GFR (Non-Af Amer) Glucose POC Glucose Direct Bilirubin Urine Glucose (UA) >=500 H Discharge - Discharge Clinical Impression: Worried well Condition: Stable Disposition: HOME, SELF-CARE Additional Instructions: Tylenol/ibuprofen as needed Light stretches daily Strength exercises as able Moist heat and massage may help F/u with your PCP in 3-5 days for a recheck healthy diet, maintain fluid intake Consider consult(s) with Orthopedics/physical therapy/Neurology for ongoing/ worsening symptoms Return to the ED with any worsening symptoms and/or development of fever, headache, chest pain, palpitations, syncope, shortness of breath, trouble breathing, abdominal pain, n/v/d, muscle weakness/paralysis, numbness/tingling, swelling, redness, or other worsening symptoms that are concerning to you. Referrals: JOIE THOMPSON MD [Primary Care Provider] - Follow up in 3-5 days [facility] [Provider Group] - Follow up as needed
[2017-03-18 22:16] LABS: ALANINE AMINOTRANSFERASE 47 U/L (21-72); ALBUMIN 4.4 g/dL (3.5-5.0); ALKALINE PHOSPHATASE 84 U/L (38-126); ANION GAP 14 (5-19); ASPARTATE AMINO TRANSFERASE 20 U/L (17-59); BILIRUBIN,DIRECT 0.6 mg/dL (0.0-0.4); BILIRUBIN,TOTAL 0.9 mg/dL (0.2-1.3); BLOOD UREA NITROGEN 26 mg/dL (7-20); CALCIUM 9.6 mg/dL (8.4-10.2); CARBON DIOXIDE 28 mmol/L (22-30); CHLORIDE 97 mmol/L (98-107); CREATININE RESULT 1.44 mg/dL (0.52-1.25); GLUCOSE 169 mg/dL (75-110); POTASSIUM 4.5 mmol/L (3.6-5.0); SODIUM 138.7 mmol/L (137-145); TOTAL PROTEIN 7.4 g/dL (6.3-8.2)
[2017-03-18 23:56] LABS: APPEARANCE,URINE CLEAR; BILIRUBIN,URINE NEGATIVE (NEGATIVE); GLUCOSE, URINE >=500 mg/dL (NEGATIVE); KETONES,URINE NEGATIVE (NEGATIVE); LEUKOCYTE ESTERASE,URINE NEGATIVE (NEGATIVE); NITRITE,URINE NEGATIVE (NEGATIVE); PROTEIN,URINE NEGATIVE (NEGATIVE); URINE SPECIFIC GRAVITY 1.022; UROBILINOGEN,URINE NEGATIVE mg/dL (<2.0)
[2017-03-19 01:36] VITALS: BP 131/86
== END 2017-03-19 01:36 | disposition home or self-care (01) ==
LOC: ER 21:08
DX: Z71.1 Person with feared health complaint in whom no diagnosis is made (principal); R53.1 Weakness; I10 Essential (primary) hypertension; Z79.899 Other long term (current) drug therapy
CPT/HCPCS: 99285; 96360; 96361; 36415; 82962; 85025; 80053; 81001; J7030

== ENCOUNTER 2017-03-23 16:15 | Emergency (ER) | payer MEDICAID, OTHER ==
--- NOTE | 2017-03-23 16:44 | ER Document Report ---
ED Medical Screen (RME) - General Chief Complaint: General Weakness Stated Complaint: LEFT SIDE WEAKNESS Time Seen by Provider: 03/23/17 16:42 Notes: Patient's states that when she woke up at 730 this morning she noticed that patient was having trouble speaking. She states she was talking normally when he went to bed last night. She took him to his primary care physician's office today, Dr. Brasher. Dr. Brasher referred the patient to the emergency department. Patient is able to speak to me however somewhat slowly. No other new deficits appreciated. Patient has been seen several times here for weakness over the last several months. TRAVEL OUTSIDE OF THE [place] IN LAST 30 DAYS: No - Related Data Allergies/Adverse Reactions: No Known Allergies Allergy (Verified 03/23/17 16:20) Past Medical History - Past Medical History Cardiac Medical History: Reports: Hx Hypertension Denies: Hx Congestive Heart Failure, Hx Heart Attack Pulmonary Medical History: Denies: Hx Asthma, Hx Bronchitis, Hx COPD, Hx Pneumonia, Hx Tuberculosis Neurological Medical History: Denies: Hx Seizures Renal/ Medical History: Reports: Hx Kidney Stones. Denies: Hx Benign Prostatic Hyperplasia, Hx End Stage Renal Disease, Hx Peritoneal Dialysis GI Medical History: Denies: Hx Cirrhosis, Hx Gastroesophageal Reflux Disease, Hx Ulcer Musculoskeltal Medical History: Denies Hx Arthritis, Denies Hx Multiple Sclerosis Psychiatric Medical History: Denies: Hx Bipolar Disorder, Hx Depression, Hx Schizophrenia Past Surgical History: Reports: Hx Orthopedic Surgery - Immunizations Hx Diphtheria, Pertussis, Tetanus Vaccination: No Physical Exam - Vital signs Vitals: Temp Pulse Resp BP Pulse Ox 98.5 F 79 14 139/87 H 100 03/23/17 16:18 03/23/17 16:18 03/23/17 16:18 03/23/17 16:18 03/23/17 16:18 Course - Vital Signs Vital signs: Temp Pulse Resp BP Pulse Ox 98.5 F 79 14 139/87 H 100 03/23/17 16:18 03/23/17 16:18 03/23/17 16:18 03/23/17 16:18 03/23/17 16:18
[2017-03-23 17:24] LABS: ABSOLUTE BASOPHILS # (AUTO) 0.1 10^3/uL (0.0-0.2); ABSOLUTE EOSINOPHILS # (AUTO) 0.1 10^3/uL (0.0-0.6); ABSOLUTE LYMPHOCYTES (AUTO) 1.7 10^3/uL (0.5-4.7); ABSOLUTE MONOCYTES (AUTO) 1.1 10^3/uL (0.1-1.4); ABSOLUTE NEUT (AUTO) 10.1 10^3/uL (1.7-8.2); BASOPHILS % (AUTO) 0.4 % (0-2); EOSINOPHILS % (AUTO) 1.1 % (0-6); HEMATOCRIT 48.3 % (37.9-51.0); HEMOGLOBIN 16.9 g/dL (13.5-17.0); HGB HCT DIFFERENCE 2.4; LYMPHOCYTES % (AUTO) 13.3 % (13-45); MEAN CORPUSCULAR VOLUME 89 fl (80-97); MONOCYTES % (AUTO) 8.4 % (3-13); RED BLOOD COUNT 5.46 10^6/uL (4.35-5.55); RED CELL DISTRIBUTION WIDTH 13.1 % (11.5-14.0); SEGMENTED NEUTROPHILS % (AUTO) 76.8 % (42-78); WHITE BLOOD COUNT 13.1 10^3/uL (4.0-10.5)
--- NOTE | 2017-03-23 17:36 | RADIOLOGY REPORT (SQ) ---
EXAM DESCRIPTION: CT HEAD WITHOUT COMPLETED DATE/TIME: 03/23/2017 5:22 pm REASON FOR STUDY: trouble speaking COMPARISON: 03/06/2017 TECHNIQUE: Axial images acquired through the brain without intravenous contrast. Images reviewed wi th bone, brain and subdural windows. Images stored on PACS. All CT scanners at this facility use dose modulation, iterative reconstruction, and/or weight based d osing when appropriate to reduce radiation dose to as low as reasonably achievable (ALARA). [facility]: Dose Right [facility]: CareDose [facility]: Dose Right [facility]: Teradose 4D [facility]: Smart Technologies RADIATION DOSE: CT Rad equipment meets quality standard of care and radiation dose reduction techniq ues were employed. CTDIvol: 49.0 mGy. DLP: 783 mGy-cm. mGy. LIMITATIONS: None. FINDINGS: VENTRICLES: Normal size and contour. CEREBRUM: There are 2 small areas of decreased attenuation in the white matter in the centrum semiova le on the left. These cannot be seen on the prior study. Few scattered areas of low density in the w maggy matter most likely chronic small vessel ischemic changes. CEREBELLUM: No masses. No hemorrhage. No alteration of density. No evidence for acute infarction. EXTRAAXIAL SPACES: No fluid collections. No masses. ORBITS AND GLOBE: No intra- or extraconal masses. Normal contour of globe without masses. CALVARIUM: No fracture. PARANASAL SINUSES: There is opacification of the right maxillary sinus. SOFT TISSUES: No mass or hematoma. OTHER: No other significant finding. IMPRESSION: 1. Mild chronic microvascular ischemia. 2. There are 2 small areas of decreased attenuation in the white matter on the left that may represe nt recent small white matter infarcts. 3. Right maxillary sinus disease. EVIDENCE OF ACUTE STROKE: NO. COMMENT: Quality ID # [id number]: Final reports with documentation of one or more dose reduction techniques (e.g., Automated exposure control, adjustment of the mA and/or kV according to patient size, use of iterative reconstruction technique) TECHNICAL DOCUMENTATION: JOB ID: [id number] [employer]- All Rights Reserved
[2017-03-23 17:47] LABS: ALANINE AMINOTRANSFERASE 41 U/L (21-72); ALBUMIN 4.8 g/dL (3.5-5.0); ALKALINE PHOSPHATASE 102 U/L (38-126); ANION GAP 15 (5-19); ASPARTATE AMINO TRANSFERASE 19 U/L (17-59); BILIRUBIN,DIRECT 0.4 mg/dL (0.0-0.4); BILIRUBIN,TOTAL 1.2 mg/dL (0.2-1.3); BLOOD UREA NITROGEN 27 mg/dL (7-20); CALCIUM 9.5 mg/dL (8.4-10.2); CARBON DIOXIDE 27 mmol/L (22-30); CHLORIDE 97 mmol/L (98-107); CREATININE RESULT 1.26 mg/dL (0.52-1.25); GLUCOSE 132 mg/dL (75-110); POTASSIUM 4.4 mmol/L (3.6-5.0); SODIUM 138.8 mmol/L (137-145); TOTAL PROTEIN 7.7 g/dL (6.3-8.2)
--- NOTE | 2017-03-23 18:48 | ER Document Report ---
ED General - General Chief Complaint: General Weakness Stated Complaint: LEFT SIDE WEAKNESS Time Seen by Provider: 03/23/17 16:42 Cannot obtain history due to: Altered mental status Notes: Patient is a 62-year-old male with a past medical history of hypertension, hyperlipidemia, chronic paresthesias and pain of the left upper extremity who presents with 2 days of rapidly worsening generalized weakness, inability to perform any activities of daily living, and is apparently now unable to ambulate. Family states just several days ago he was up putting Mariela lights on the outside of the house and is now been unable to even get up out of bed independently. They report that his cognitive process appears very delayed and that his responses take at least 30-40 seconds after being and asked a question to be formed. He saw his primary care physician today and was referred to the emergency department for concerns of a possible acute stroke. Patient has had a multitude of abnormal neurologic complaints over the past several months and has had several CT scans of his head as well as an MRI and MRA of the head back in July of this year which were unrevealing. The patient himself is unable to provide meaningful history. He does not answer any of my questions. TRAVEL OUTSIDE OF THE [place] IN LAST 30 DAYS: No - Related Data Allergies/Adverse Reactions: No Known Allergies Allergy (Verified 03/23/17 16:20) Past Medical History - General Information source: Relative Cannot obtain history due to: Altered mental status - Social History Smoking Status: Former Smoker Frequency of alcohol use: None Drug Abuse: None Lives with: Family Family History: Reviewed & Not Pertinent, Other - Patient states family history of aneurysms Patient has suicidal ideation: No Patient has homicidal ideation: No - Past Medical History Cardiac Medical History: Reports: Hx Hypertension Denies: Hx Congestive Heart Failure, Hx Heart Attack Pulmonary Medical History: Denies: Hx Asthma, Hx Bronchitis, Hx COPD, Hx Pneumonia, Hx Tuberculosis Neurological Medical History: Denies: Hx Seizures Renal/ Medical History: Reports: Hx Kidney Stones. Denies: Hx Benign Prostatic Hyperplasia, Hx End Stage Renal Disease, Hx Peritoneal Dialysis GI Medical History: Denies: Hx Cirrhosis, Hx Gastroesophageal Reflux Disease, Hx Ulcer Musculoskeltal Medical History: Denies Hx Arthritis, Denies Hx Multiple Sclerosis Psychiatric Medical History: Denies: Hx Bipolar Disorder, Hx Depression, Hx Schizophrenia Past Surgical History: Reports: Hx Orthopedic Surgery - Immunizations Hx Diphtheria, Pertussis, Tetanus Vaccination: No Review of Systems - Review of Systems -: Yes ROS unobtainable due to patient's medical condition Physical Exam - Vital signs Vitals: Temp Pulse Resp BP Pulse Ox 98.5 F 79 14 139/87 H 100 03/23/17 16:18 03/23/17 16:18 03/23/17 16:18 03/23/17 16:18 03/23/17 16:18 Interpretation: Normal Notes: PHYSICAL EXAMINATION: GENERAL: Appears confused, intermittently staring off HEAD: Atraumatic, normocephalic. EYES: Pupils equal round and reactive to light, extraocular movements intact, sclera anicteric, conjunctiva are normal. ENT: nares patent, oropharynx clear without exudates. Moderately dry mucous membranes. NECK: Normal range of motion, supple without lymphadenopathy LUNGS: Breath sounds clear to auscultation bilaterally and equal. No wheezes rales or rhonchi. HEART: Regular rate and rhythm without murmurs ABDOMEN: Soft, nontender, normoactive bowel sounds. No guarding, no rebound. No masses appreciated. EXTREMITIES: Normal range of motion, no pitting or edema. No cyanosis. NEUROLOGICAL: Face symmetric. Tongue protrudes midline. Extraocular motions intact. Pupils are 2 mm and equally reactive. Delayed speech but when patient does talk there is no dysarthria. 5 out of 5 strength in both the distal and proximal upper and lower extremities bilaterally. Sensation is grossly intact throughout. Intermittently shaking his right upper extremity in a twisting fashion which can be stopped via redirection. PSYCH: Altered, very delayed responses to questions. SKIN: Warm, Dry, normal turgor, no rashes or lesions noted. Course - Re-evaluation Re-evalutation: 03/23/17 18:45 Patient presents with unusual constellation of symptoms fit more with a progressive degenerative neurologic condition such as multiple sclerosis, Faina Gehrig's disease, most likely an autoimmune inflammatory disease such as lupus or rheumatoid arthritis. He does not have any focal neurologic deficits on examination but is extremely slow in his responses to my questions. He does not appear to have any distinct dysarthria or receptive aphasia. It seems to be more of a global confusion picture. However family reports that patient has appeared almost forget how to do activities of daily living such as walking, how to drink a cup of coffee, or perform any activities of daily living and that this has occurred rapidly over the last 2 days. Patient does appear quite different than the last time I saw him approximately 3 weeks ago at which time he was alert, oriented, ambulated and had no focal neurologic deficits. He has had extensive evaluations for recurrent left upper extremity paresthesias all of which have been unremarkable. Review of an MRI and MRA of his head and neck from a visit back in July shows that this was again unremarkable at that time. However CT the head today does appear to show white matter changes that were not present on a CT scan less than 1 week ago. His clinical history does not appear consistent with an acute stroke and thus it would be a very localized stroke specifically triggering a difficulty with language although this would not account for patient's generalized weakness and inability to walk or get in his truck. Given the unusual nature of the patient's presentation, and his inability to perform basic activities of daily living at this time, will proceed with an MRI MRA of the head and neck, [place], and obtain laboratories, chest x-ray, and plan for likely transfer to a tertiary care facility when appropriate neurology evaluation can be complete 03/23/17 22:04 MRI does show diffuse white matter changes which is what I was concerned we would see and is consistent with a degenerative neurologic condition such as multiple sclerosis. I discussed this case with Dr. Tavera the neurologist on consult at [facility] who agrees the patient should be transferred with a neurologist assessment. We do not have a bed at this time however due to their capacity. We are continuing to see if patient could be transferred to a [facility] for neurology assessment. 03/23/17 23:39 Patient has been accepted to [facility] by Dr.Robert Moser. Patient remains clinically unchanged. Remains hemodynamically stable. 03/24/17 03:27 Patient continues to be clinically unchanged, suitable for transfer - Vital Signs Vital signs: Temp Pulse Resp BP Pulse Ox 98 F 74 18 139/93 H 97 03/24/17 01:11 03/24/17 01:11 03/24/17 01:11 03/24/17 01:11 03/24/17 01:11 - Laboratory Result Diagrams: 03/23/17 17:02 03/23/17 17:02 Laboratory results interpreted by me: 03/23/17 03/23/17 17:02 17:02 WBC 13.1 H Absolute Neutrophils 10.1 H Chloride 97 L BUN 27 H Creatinine 1.26 H Est GFR (Non-Af Amer) 58 L Glucose 132 H - Diagnostic Test Radiology reviewed: Reports reviewed Discharge - Discharge Clinical Impression: White matter abnormality on MRI of brain, Speech delay, Gait abnormality Condition: Fair Disposition: [facility]
--- NOTE | 2017-03-23 19:14 | RADIOLOGY REPORT (SQ) ---
EXAM DESCRIPTION: CHEST SINGLE VIEW COMPLETED DATE/TIME: 03/23/2017 6:59 pm REASON FOR STUDY: ams, cough COMPARISON: 03/06/2017 EXAM PARAMETERS: NUMBER OF VIEWS: One view. TECHNIQUE: Single frontal radiographic view of the chest acquired. RADIATION DOSE: NA LIMITATIONS: Patient has made a lesser inspiration. FINDINGS: LUNGS AND PLEURA: No opacities, masses or pneumothorax. No pleural effusion. MEDIASTINUM AND HILAR STRUCTURES: No masses. Contour normal. HEART AND VASCULAR STRUCTURES: Heart normal in size. Normal vasculature. BONES: No acute findings. HARDWARE: None in the chest. OTHER: No other significant finding. IMPRESSION: NO ACUTE RADIOGRAPHIC FINDING IN THE CHEST. TECHNICAL DOCUMENTATION: JOB ID: [id number] [employer]- All Rights Reserved
[2017-03-23] MEDS ORDERED: NORMAL SALINE 1000 ML 1,000 ML IV ONE (20:37)
--- NOTE | 2017-03-23 20:50 | RADIOLOGY REPORT (SQ) ---
EXAM DESCRIPTION: MRA HEAD WITHOUT COMPLETED DATE/TIME: 03/23/2017 8:35 pm REASON FOR STUDY: eval demyelinating disorder, possible acute stroke COMPARISON: None. TECHNIQUE: Axial 3-D masu-sy-ixiecm acquisition imaging performed through the brain in the area of t he [place]. Images reformatted using 3-D MIPS. LIMITATIONS: Study is limited due to motion artifact. FINDINGS: SOURCE IMAGES: No unexpected findings on source images. No large masses. 3-D MIP: No aneurysm. No occlusions. No significant stenosis. OTHER: No other significant finding. IMPRESSION: Somewhat limited study as noted above. No definite aneurysm, occlusion, or significant stenoses are identified. TECHNICAL DOCUMENTATION: JOB ID: [id number] [employer]- All Rights Reserved
--- NOTE | 2017-03-23 20:57 | RADIOLOGY REPORT (SQ) ---
EXAM DESCRIPTION: MRI HEAD COMBO COMPLETED DATE/TIME: 03/23/2017 8:35 pm REASON FOR STUDY: eval demyelinating disorder, possible acute stroke COMPARISON: Brain CT scan dated 03/23/2017 TECHNIQUE: Multiplanar imaging includes noncontrasted T1, T2, FLAIR, and Diffusion with ADC map seq uences. Contrast enhanced T1 images. Images stored on PACS. CONTRAST TYPE AND DOSE: 15 mL MultiHance RENAL FUNCTION: GFR > 60. LIMITATIONS: None. FINDINGS: ANATOMY: No anomalies. Normal vascular flow voids. Pituitary fossa normal. CSF SPACES: Normal size and contour. No hemorrhage. CEREBRUM: A few high-signal intensity lesions scattered throughout the white matter on FLAIR imaging with distribution suggesting chronic microvascular ischemic change. Sulci and gyri normal in size and contour. No evidence of hemorrhage, mass or extraaxial fluid collection. No enhancing lesions. POSTERIOR FOSSA: No signal alteration. No hemorrhage. No edema, masses or mass effect. Internal audit ory canals, cerebello-pontine angles, mastoids normal. DIFFUSION: There are multiple focal areas of abnormal diffusion scattered in the periventricular whit e matter bilaterally with additional foci in the right frontal lobe and in both parietal lobes over t he convexity left greater than right. ORBITS: No masses. Globes normal. PARANASAL SINUSES: There is opacification of the right maxillary antra. OTHER: No other significant finding. IMPRESSION: NO ENHANCING LESIONS. MINIMAL MICROVASCULAR ISCHEMIC CHANGE. Multiple focal areas of ab normal diffusion scattered in the periventricular white matter bilaterally as well as in the right fr ontal lobe and in both parietal lobes over the convexity left greater than right. The appearance is consistent with multifocal a evolving areas of infarction presumably on an embolic basis. Clinical c orrelation is recommended EVIDENCE OF ACUTE STROKE: NO. TECHNICAL DOCUMENTATION: JOB ID: [id number] [employer]- All Rights Reserved
[2017-03-23] MEDS ORDERED: ASPIRIN 81 MG TABLET, CHEWABLE PO ONE (21:02)
[2017-03-24 04:26] VITALS: BP 140/85
== END 2017-03-24 04:00 | disposition short-term general hospital (02) ==
LOC: ER 16:15
DX: R94.02 Abnormal brain scan (principal); R47.9 Unspecified speech disturbances; R26.9 Unspecified abnormalities of gait and mobility; R41.82 Altered mental status, unspecified; I10 Essential (primary) hypertension; E78.5 Hyperlipidemia, unspecified
CPT/HCPCS: 99285; 96360; 36415; 85025; 80053; 70553; 70544; 71010; 70450; A9577; J7030

== ENCOUNTER 2017-05-20 12:26 | Observation (INO) | payer MEDICAID, OTHER ==
[2017-05-20] MEDS ORDERED: ASPIRIN 81 MG TABLET, CHEWABLE PO ONE (12:30)
--- NOTE | 2017-05-20 12:34 | ER Document Report ---
ED Cardiac - General Stated Complaint: CHEST PAIN Time Seen by Provider: 05/20/17 12:33 Mode of Arrival: Medic Information source: Patient TRAVEL OUTSIDE OF THE [place] IN LAST 30 DAYS: No - HPI Patient complains to provider of: Chest pain Use of: denies: Alcohol, Amphetamines, Caffeine, Cocaine, Decongestants Was the onset of pain: Sudden When did pain begin: APPROX. 1 HR PRIOR TO E.D. ARRIVAL Is the pain a: New problem Chest pain location: Substernal Quality of pain: Other - "LIKE A POTATO CHIP STUCK IN ESOPHAGUS" Chest pain radiation location: None Severity now: None Severity at worst: Moderate Chest pain precipitating factors: At Rest Cardiac risk factors: Diabetes, Hypertension, Hx CHF. denies: Hx IN Positive cardiac history: Yes Associated symptoms: Diaphoresis, Nausea/vomiting, Shortness of breath Exacerbated by: Denies Relieved by: Rest Similar symptoms previously: No Recently seen / treated by doctor: Yes - WAS IN M.D. OFFICE WHEN C.P. BEGAN - Related Data Allergies/Adverse Reactions: No Known Allergies Allergy (Verified 05/20/17 12:42) Past Medical History - General Information source: Patient - Social History Smoking Status: Unknown if Ever Smoked Frequency of alcohol use: None Drug Abuse: None Lives with: Spouse/Significant other Family History: Reviewed & Not Pertinent, Other - Patient states family history of aneurysms Patient has suicidal ideation: No Patient has homicidal ideation: No - Past Medical History Cardiac Medical History: Reports: Hx Hypertension, Hx Peripheral Vascular Disease Denies: Hx Congestive Heart Failure, Hx Coronary Artery Disease, Hx Heart Attack Pulmonary Medical History: Denies: Hx Asthma, Hx Bronchitis, Hx COPD, Hx Pneumonia, Hx Tuberculosis Neurological Medical History: Reports: Hx Cerebrovascular Accident. Denies: Hx Seizures Endocrine Medical History: Reports: Hx Diabetes Mellitus Type 2 Renal/ Medical History: Reports: Hx Kidney Stones. Denies: Hx Benign Prostatic Hyperplasia, Hx End Stage Renal Disease, Hx Peritoneal Dialysis Malignancy Medical History: Reports Hx Prostate Cancer GI Medical History: Reports: None. Denies: Hx Cirrhosis, Hx Gastroesophageal Reflux Disease, Hx Ulcer Musculoskeltal Medical History: Reports None, Denies Hx Arthritis, Denies Hx Multiple Sclerosis Psychiatric Medical History: Reports: None Denies: Hx Bipolar Disorder, Hx Depression, Hx Schizophrenia Past Surgical History: Reports: Hx Orthopedic Surgery - Immunizations Hx Diphtheria, Pertussis, Tetanus Vaccination: No Review of Systems - Review of Systems Constitutional: See HPI, Diaphoresis EENT: No symptoms reported Cardiovascular: See HPI Respiratory: See HPI Gastrointestinal: See HPI, Nausea. denies: Vomiting Genitourinary: No symptoms reported Musculoskeletal: No symptoms reported Skin: No symptoms reported Neurological/Psychological: Weakness - CHRONIC LEFT, NEW ON RIGHT OF YESTERDAY, Speech impairment - MODERATE EXPRESSIVE APHASIA Physical Exam - Vital signs Vitals: Pulse Ox 98 05/20/17 12:30 - General General appearance: Appears well, Alert In distress: None - HEENT Head: Normocephalic Eyes: Normal Conjunctiva: Normal Ears: Normal Nasal: Normal Mouth/Lips: Normal Mucous membranes: Normal Neck: Normal - Respiratory Respiratory status: No respiratory distress Breath sounds: Normal - Cardiovascular Rhythm: Regular Heart sounds: Normal auscultation Murmur: No Pulses: Normal: Radial Normal capillary refill: Yes - Abdominal Inspection: Normal Distension: No distension - Back Back: Normal - Extremities General upper extremity: Normal inspection General lower extremity: Normal inspection - Neurological Neuro grossly intact: No - CHRONIC R. MOTOR WEKNESS Cognition: Normal Orientation: AAOx4 Speech: Expressive aphasia - Psychological Associated symptoms: Normal affect, Normal mood - Skin Skin Temperature: Warm Skin Moisture: Dry Skin Color: Normal Skin Turgor: Elastic Course - Vital Signs Vital signs: Temp Pulse Resp BP Pulse Ox 98.1 F 20 132/101 H 100 05/20/17 12:43 05/20/17 16:01 05/20/17 16:01 05/20/17 16:01 - Laboratory Result Diagrams: 05/20/17 12:37 05/20/17 12:37 Laboratory results interpreted by me: 05/20/17 05/20/17 12:37 12:37 WBC 11.0 H RBC 4.33 L RDW 14.3 H BUN 25 H Creatine Kinase 44 L - Diagnostic Test Radiology reviewed: Image reviewed, Reports reviewed - EKG Interpretation by [place] EKG shows normal: Sinus rhythm, Cogg[place], Intervals, QRS Complexes. abnormal: ST-T Waves - BORDERLINE INF. T ABNLS Rate: Normal Rhythm: NSR - Consults DR. ROMERO Consulted provider: will come to ER Discharge - Discharge Clinical Impression: Chest pain Qualifiers: Chest pain type: unspecified Qualified Code(s): R07.9 - Chest pain, unspecified Condition: Good Disposition: ADMITTED OBSERVATION Admitting Provider: Hospitalist Unit Admitted: Telemetry
[2017-05-20 12:58] LABS: ABSOLUTE BASOPHILS # (AUTO) 0.1 10^3/uL (0.0-0.2); ABSOLUTE EOSINOPHILS # (AUTO) 0.2 10^3/uL (0.0-0.6); ABSOLUTE NEUT (AUTO) 7.8 10^3/uL (1.7-8.2); BASOPHILS % (AUTO) 0.5 % (0-2); EOSINOPHILS % (AUTO) 1.6 % (0-6); HEMATOCRIT 39.7 % (37.9-51.0); HEMOGLOBIN 13.8 g/dL (13.5-17.0); LYMPHOCYTES % (AUTO) 17.8 % (13-45); MEAN CORPUSCULAR HEMOGLOBIN 31.9 pg (27.0-33.4); MEAN CORPUSCULAR HGB CONC 34.8 g/dL (32.0-36.0); MEAN CORPUSCULAR VOLUME 92 fl (80-97); MONOCYTES % (AUTO) 8.8 % (3-13); PLATELET COUNT 165 10^3/uL (150-450); RED BLOOD COUNT 4.33 10^6/uL (4.35-5.55); RED CELL DISTRIBUTION WIDTH 14.3 % (11.5-14.0); SEGMENTED NEUTROPHILS % (AUTO) 71.3 % (42-78); TOTAL CELLS COUNTED % (AUTO) 100 %
--- NOTE | 2017-05-20 13:19 | RADIOLOGY REPORT (SQ) ---
EXAM DESCRIPTION: CHEST SINGLE VIEW COMPLETED DATE/TIME: 05/20/2017 12:55 pm REASON FOR STUDY: chest pain COMPARISON: February 2017 EXAM PARAMETERS: NUMBER OF VIEWS: One view. TECHNIQUE: Single frontal radiographic view of the chest acquired. RADIATION DOSE: NA LIMITATIONS: None. FINDINGS: LUNGS AND PLEURA: No opacities, masses or pneumothorax. No pleural effusion. MEDIASTINUM AND HILAR STRUCTURES: No masses. Contour normal. HEART AND VASCULAR STRUCTURES: Heart normal in size. Normal vasculature. BONES: No acute findings. HARDWARE: None in the chest. OTHER: No other significant finding. IMPRESSION: NO ACUTE RADIOGRAPHIC FINDING IN THE CHEST. TECHNICAL DOCUMENTATION: JOB ID: [id number] [employer]- All Rights Reserved
[2017-05-20 13:20] LABS: ALANINE AMINOTRANSFERASE 37 U/L (21-72); ALBUMIN 4.2 g/dL (3.5-5.0); ALKALINE PHOSPHATASE 75 U/L (38-126); ANION GAP 11 (5-19); ASPARTATE AMINO TRANSFERASE 17 U/L (17-59); BILIRUBIN,DIRECT 0.3 mg/dL (0.0-0.4); BILIRUBIN,TOTAL 0.9 mg/dL (0.2-1.3); BLOOD UREA NITROGEN 25 mg/dL (7-20); CARBON DIOXIDE 27 mmol/L (22-30); CHLORIDE 102 mmol/L (98-107); CREATINE KINASE 44 U/L (55-170); GLUCOSE 89 mg/dL (75-110); POTASSIUM 4.8 mmol/L (3.6-5.0); SODIUM 139.6 mmol/L (137-145); TOTAL PROTEIN 6.8 g/dL (6.3-8.2)
[2017-05-20 13:30] LABS: CREATINE KINASE MB 0.68 ng/mL (<4.55); TROPONIN I 0.012 ng/mL
--- NOTE | 2017-05-20 14:43 | RADIOLOGY REPORT (SQ) ---
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 TECHNIQUE: Axial images acquired through the brain without intravenous contrast. Images reviewed wi th bone, brain and subdural windows. Images stored on PACS. All CT scanners at this facility use dose modulation, iterative reconstruction, and/or weight based d osing when appropriate to reduce radiation dose to as low as reasonably achievable (ALARA). [facility]: Dose Right [facility]: CareDose [facility]: Dose Right [facility]: Teradose 4D [facility]: Smart [employer] RADIATION DOSE: CT Rad equipment meets quality standard of care and radiation dose reduction techniq ues were employed. CTDIvol: 64.6 mGy. DLP: 1163 mGy-cm. mGy. LIMITATIONS: None. FINDINGS: VENTRICLES: Prominent. CEREBRUM: No masses. No hemorrhage. No midline shift. Areas of low density in the white matter mos t likely due to chronic micro-vascular ischemic change. Old lacunar infarcts. No evidence for acute infarction. CEREBELLUM: No masses. No hemorrhage. No alteration of density. No evidence for acute infarction. EXTRAAXIAL SPACES: Mild age-related involutional change. No fluid collections. No masses. ORBITS AND GLOBE: No intra- or extraconal masses. Normal contour of globe without masses. CALVARIUM: No fracture. PARANASAL SINUSES: Soft tissue in the right maxillary sinus, unchanged. SOFT TISSUES: No mass or hematoma. OTHER: No other significant finding. IMPRESSION: 1. MILD CHRONIC CHANGES OF ATROPHY AND MICROVASCULAR ISCHEMIA. OLD LACUNAR INFARCTS. NO ACUTE PROCE SS. 2. CHRONIC RIGHT MAXILLARY SINUS DISEASE. EVIDENCE OF ACUTE STROKE: NO. TECHNICAL DOCUMENTATION: JOB ID: [id number] Quality ID # [id number]: Final reports with documentation of one or more dose reduction techniques (e.g., Au tomated exposure control, adjustment of the mA and/or kV according to patient size, use of iterative reconstruction technique) 2010 [employer]- All Rights Reserved
--- NOTE | 2017-05-20 14:47 | RADIOLOGY REPORT (SQ) ---
EXAM DESCRIPTION: CTA CHEST COMPLETED DATE/TIME: 05/20/2017 2:31 pm REASON FOR STUDY: CHEST PAIN, NEW NEUROLOGIC SXS, R/O AORTIC DISSEC. COMPARISON: Chest x-ray dated 05/20/2017. Chest CT dated 08/01/2016. TECHNIQUE: CT scan of the chest performed using helical scanning technique with dynamic intravenous contrast injection. Images reviewed with lung, soft tissue and bone windows. Reconstructed coronal and sagittal MPR images reviewed. Additional 3 dimensional post-processing performed to develop Maximal Intensity Projection images (MO P). All images stored on PACS. All CT scanners at this facility use dose modulation, iterative reconstruction, and/or weight based d osing when appropriate to reduce radiation dose to as low as reasonably achievable (ALARA). [facility]: Dose Right [facility]: CareDose [facility]: Dose Right [facility]: Teradose 4D [facility]: [employer] CONTRAST TYPE AND DOSE: 72 mL Isovue 370- low osmolar. Contrast bolus optimized for the pulmonary arteries. Not diagnostic for the aorta. RENAL FUNCTION: BUN 25 creatinine 1.04. RADIATION DOSE: CT Rad equipment meets quality standard of care and radiation dose reduction techniq ues were employed. CTDIvol: 16.5 - 29.8 mGy. DLP: 1039 mGy-cm. . LIMITATIONS: None. FINDINGS: LUNGS AND PLEURA: No masses, infiltrates, pneumothorax. No pleural effusions, calcificati ons. AORTA AND GREAT VESSELS: No aneurysm. Contrast bolus not optimized for the aorta. HEART: No pericardial effusion. No significant coronary artery calcifications. PULMONARY ARTERIES: No emboli visualized in the main pulmonary arteries or the segmental branches. HILAR AND MEDIASTINAL STRUCTURES: No identified masses or abnormal nodes. HARDWARE: None in the chest. UPPER ABDOMEN: No significant findings. Stable small 1 cm fatty lesion in the right adrenal gland. Limited exam. THYROID AND OTHER SOFT TISSUES: Heterogenous nodularity of the left lobe of the thyroid with substern al extension. No adenopathy. BONES: No acute or significant finding. 3D MIPS: Confirm above findings. OTHER: No other significant finding. IMPRESSION: 1. NORMAL CTA OF THE CHEST. NO PULMONARY EMBOLI. 2. HETEROGENOUS NODULARITY OF THE LEFT LOBE OF THE THYROID WITH SUBSTERNAL EXTENSION, UNCHANGED. 3. INCIDENTAL SMALL FATTY LESION IN THE RIGHT ADRENAL GLAND, UNCHANGED. COMMENT: Quality ID # [id number]: Final reports with documentation of one or more dose reduction techniques (e.g., Automated exposure control, adjustment of the mA and/or kV according to patient size, use of iterative reconstruction technique) TECHNICAL DOCUMENTATION: JOB ID: [id number] [employer]- All Rights Reserved
--- NOTE | 2017-05-20 15:40 | EKG REPORT ---
SEVERITY:- BORDERLINE ECG - SINUS RHYTHM BORDERLINE T ABNORMALITIES, INFERIOR LEADS : Confirmed by: Kandice Augustin 20-May-2017 15:39:22
[2017-05-20] MEDS ORDERED: ONDANSETRON HCL INJ/PF 4 MG/2 ML SDV IV PRN (17:55)
[2017-05-20] MEDS ORDERED: NITROGLYCERIN 0.4 MG/TAB 25 TAB/BOTTLE SL PRN (17:55)
[2017-05-20] MEDS ORDERED: ACETAMINOPHEN 325 MG TABLET PO PRN (17:55)
[2017-05-20] MEDS ORDERED: DEXTROSE 40% GEL 15 GM TUBE PO PRN ×2 (18:29)
[2017-05-20] MEDS ORDERED: GLUCAGON,HUMAN RECOMB 1 MG INJ IM PRN (18:29)
[2017-05-20] MEDS ORDERED: DEXTROSE 50%-WATER 25 GM/50 ML DISP.SYRIN IV PRN ×2 (18:29)
[2017-05-20] MEDS ORDERED: INSULIN LISPRO 100 UNIT/ML 3 ML VIAL SUBCUT PRN (18:29)
[2017-05-20] MEDS ORDERED: TIZANIDINE HCL 4 MG TABLET PO SCH (18:30)
[2017-05-20] MEDS ORDERED: TAMSULOSIN HCL 0.4 MG CAP.SR.24H PO ONE (18:32)
--- NOTE | 2017-05-20 18:49 | PDOC H&P ---
History of Present Illness Admission Date/PCP: 05/20/17 18:06 Patient complains of: Chest pain, dizziness and nausea today History of Present Illness: OBI TORRES is a 62 year old male arrived to emergency room via ambulance. Patient states that while he was at Dr. Reece's office when he was following up for his prostate. He began experiencing chest pain in the middle of the chest. Accordingly it felt like when swallowing a coin. He wanted to take a nitroglycerin however did not proceed since he was told that the blood pressure was in the low 90s. Afterwords his PCP was contacted and recommended for him to come to emergency room. While in route he was administered aspirin and nitroglycerin with further improvement. While in emergency room he has been evaluated through 2 sets of cardiac enzymes which have been negative. According to he had a stress test around a year ago which was negative. Due to comorbidities the hospitalist service was contacted and prompted to admit. Patient also complains of having back pain which has been ongoing and also having a cold sensation in the left side of his body since he had a stroke back in February Past Medical History Cardiac Medical History: Reports: Congestive Heart Failure, Hyperlipidema, Hypertension, Peripheral Vascular Disease Denies: Coronary Artery Disease, Myocardial Infarction Pulmonary Medical History: Denies: Asthma, Bronchitis, Chronic Obstructive Pulmonary Disease (COPD), Pneumonia, Tuberculosis Neurological Medical History: Reports: Ischemic CVA Denies: Seizures Endocrine Medical History: Reports: Diabetes Mellitus Type 2 Renal/ Medical History: Denies: End Stage Renal Disease GI Medical History: Reports: None Denies: Cirrhosis, Gastroesophageal Reflux Disease Musculoskeltal Medical History: Reports: None Denies: Arthritis Psychiatric Medical History: Reports: None Denies: Bipolar Disorder, Depression Hematology: Denies: Anemia, Bleeding Tendencies Past Surgical History Past Surgical History: Reports: Orthopedic Surgery Social History Lives with: Spouse/Significant other Smoking Status: Never Smoker Frequency of Alcohol Use: None Hx Recreational Drug Use: No Drugs: None Hx Prescription Drug Abuse: No - Advance Directive Resuscitation Status: Full Code Family History Family History: DM, Other - Patient states family history of aneurysms Parental Family History Reviewed: Yes Children Family History Reviewed: Yes Sibling(s) Family History Reviewed.: Yes Medication/Allergy Allergies/Adverse Reactions: No Known Allergies Allergy (Verified 05/20/17 12:42) Review of Systems Constitutional: PRESENT: headache(s). ABSENT: fever(s) Eyes: ABSENT: visual disturbances Ears: ABSENT: hearing changes Nose, Mouth, and Throat: ABSENT: mouth pain, sore throat Cardiovascular: PRESENT: chest pain. ABSENT: dyspnea on exertion, edema, orthropnea Respiratory: ABSENT: dyspnea Gastrointestinal: PRESENT: nausea. ABSENT: abdominal pain, heartburn Genitourinary: PRESENT: other - BPH Musculoskeletal: ABSENT: joint swelling Neurological: PRESENT: other - back pain Physical Exam Vital Signs: Temp Pulse Resp BP Pulse Ox 98.1 F 16 112/76 100 05/20/17 12:43 05/20/17 18:01 05/20/17 18:01 05/20/17 18:01 General appearance: PRESENT: cooperative, mild distress, obese Head exam: PRESENT: atraumatic, normocephalic Eye exam: PRESENT: conjunctiva pink, EOMI, PERRLA Ear exam: PRESENT: normal external ear exam, TM's normal bilaterally Mouth exam: PRESENT: moist, neck supple Neck exam: PRESENT: full ROM. ABSENT: JVD, lymphadenopathy, tenderness, thyromegaly Respiratory exam: PRESENT: clear to auscultation faiza Cardiovascular exam: PRESENT: diastolic murmur, RRR, systolic murmur Vascular exam: PRESENT: normal capillary refill GI/Abdominal exam: PRESENT: normal bowel sounds, soft. ABSENT: tenderness Extremities exam: PRESENT: full ROM. ABSENT: joint swelling, pedal edema Neurological exam: PRESENT: alert, awake, oriented to person, oriented to place , oriented to time, oriented to situation, aphasic Psychiatric exam: PRESENT: depressed Skin exam: PRESENT: intact, normal color Results Impressions: Chest X-Ray 05/20/17 12:30 IMPRESSION: NO ACUTE RADIOGRAPHIC FINDING IN THE CHEST. Head CT 05/20/17 12:56 IMPRESSION: 1. MILD CHRONIC CHANGES OF ATROPHY AND MICROVASCULAR ISCHEMIA. OLD LACUNAR INFARCTS. NO ACUTE PROCESS. 2. CHRONIC RIGHT MAXILLARY SINUS DISEASE. EVIDENCE OF ACUTE STROKE: NO. Chest/Abdomen CTA 05/20/17 12:58 IMPRESSION: 1. NORMAL CTA OF THE CHEST. NO PULMONARY EMBOLI. 2. HETEROGENOUS NODULARITY OF THE LEFT LOBE OF THE THYROID WITH SUBSTERNAL EXTENSION, UNCHANGED. 3. INCIDENTAL SMALL FATTY LESION IN THE RIGHT ADRENAL GLAND, UNCHANGED. Assessment & Plan - Diagnosis (1) Hypotension Qualifiers: Hypotension type: hypotension due to drug Qualified Code(s): I95.2 - Hypotension due to drugs Is this a current diagnosis for this admission?: Yes Plan: . Improved since arrival to emergency room. To decrease lisinopril to 10 mg p.o. daily will continue Aldactone, Lasix and Coreg to monitor (2) Chest pain Qualifiers: Chest pain type: unspecified Qualified Code(s): R07.9 - Chest pain, unspecified Is this a current diagnosis for this admission?: Yes Plan: Appears to be atypical. Patient will be admitted to telemetry unit and will order a third set of cardiac enzymes. Will request nuclear stress test (3) Back pain Qualifiers: Chronicity: chronic Sciatica presence: unspecified whether sciatica present Is this a current diagnosis for this admission?: Yes Plan: Will place patient on Zanaflex and gabapentin (4) Diabetes Qualifiers: Diabetes mellitus type: type 2 Diabetes mellitus complication status: with unspecified complications Diabetes mellitus predatory animal exterminator insulin use: without predatory animal exterminator use Qualified Code(s): E11.8 - Type 2 diabetes mellitus with unspecified complications Is this a current diagnosis for this admission?: Yes Plan: To place patient on Humalog sliding scale with bedside glucose before meals and at bedtime (5) History of CVA with residual deficit Is this a current diagnosis for this admission?: Yes Plan: Supportive - Time Time Spent: 50 to 70 Minutes Medications reviewed and adjusted accordingly: Yes Anticipated discharge: Home Within: within 24 hours - Inpatient Certification Based on my medical assessment, after consideration of the patient's comorbidities, presenting symptoms, or acuity I expect that the services needed warrant INPATIENT care.: No I certify that my determination is in accordance with my understanding of Medicare's requirements for reasonable and necessary INPATIENT services [42 CFR 412.3e].: Yes Medical Necessity: Need Close Monitoring Due to Risk of Patient Decompensation, Need For Continuous Telemetry Monitoring
[2017-05-20] MEDS ORDERED: ATORVASTATIN CALCIUM 80 MG TABLET PO SCH (22:00)
[2017-05-20] MEDS: CARVEDILOL 12.5 MG TABLET PO SCH (23:14)
[2017-05-20] MEDS: MORPHINE SULFATE 10 MG/ML INJ IV PRN (23:15)
[2017-05-20] MEDS: GABAPENTIN 300 MG CAPSULE PO SCH (23:15)
[2017-05-20] MEDS: HEPARIN SOD (PORCINE) 5,000 UNIT/ML 1 ML SYRINGE SUBCUT SCH (23:18)
[2017-05-21] MEDS: HEPARIN SOD (PORCINE) 5,000 UNIT/ML 1 ML SYRINGE SUBCUT SCH ×2 (05:28→14:13)
[2017-05-21 06:42] LABS: ABSOLUTE EOSINOPHILS # (AUTO) 0.1 10^3/uL (0.0-0.6); ABSOLUTE LYMPHOCYTES (AUTO) 1.5 10^3/uL (0.5-4.7); ABSOLUTE MONOCYTES (AUTO) 0.7 10^3/uL (0.1-1.4); ABSOLUTE NEUT (AUTO) 6.2 10^3/uL (1.7-8.2); BASOPHILS % (AUTO) 0.4 % (0-2); EOSINOPHILS % (AUTO) 1.6 % (0-6); HEMATOCRIT 37.7 % (37.9-51.0); HEMOGLOBIN 13.2 g/dL (13.5-17.0); MEAN CORPUSCULAR HEMOGLOBIN 31.9 pg (27.0-33.4); MEAN CORPUSCULAR HGB CONC 35.1 g/dL (32.0-36.0); MEAN CORPUSCULAR VOLUME 91 fl (80-97); MONOCYTES % (AUTO) 8.7 % (3-13); PLATELET COUNT 114 10^3/uL (150-450); RED BLOOD COUNT 4.14 10^6/uL (4.35-5.55); RED CELL DISTRIBUTION WIDTH 14.3 % (11.5-14.0); SEGMENTED NEUTROPHILS % (AUTO) 72.3 % (42-78); TOTAL CELLS COUNTED % (AUTO) 100 %; WHITE BLOOD COUNT 8.6 10^3/uL (4.0-10.5)
[2017-05-21] MEDS: MORPHINE SULFATE 10 MG/ML INJ IV PRN (06:43)
[2017-05-21 07:04] LABS: BLOOD UREA NITROGEN 27 mg/dL (7-20); CALCIUM 9.5 mg/dL (8.4-10.2); GLUCOSE 120 mg/dL (75-110)
[2017-05-21 07:05] LABS: ANION GAP 9 (5-19); CARBON DIOXIDE 24 mmol/L (22-30); CHLORIDE 102 mmol/L (98-107); POTASSIUM 4.2 mmol/L (3.6-5.0); SODIUM 135.1 mmol/L (137-145)
[2017-05-21] MEDS ORDERED: LISINOPRIL 10 MG TABLET PO SCH (10:00)
[2017-05-21] MEDS ORDERED: SPIRONOLACTONE 25 MG TABLET PO SCH (10:00)
[2017-05-21] MEDS ORDERED: FUROSEMIDE 20 MG TABLET PO SCH (10:00)
[2017-05-21] MEDS ORDERED: ASPIRIN 81 MG TABLET, ENT COATED PO SCH (10:00)
[2017-05-21] MEDS: GABAPENTIN 300 MG CAPSULE PO SCH (11:35)
[2017-05-21] MEDS: CARVEDILOL 12.5 MG TABLET PO SCH (11:35)
[2017-05-21] MEDS ORDERED: LISINOPRIL 10 MG TABLET PO ONE (13:00)
--- NOTE | 2017-05-21 13:11 | DRAGON STRESS TEST REPORT ---
INTRAVENOUS LEXISCAN CARDIOLITE STRESS TEST USING SINGLE PHOTON EMMISION COMPUTERIZED TOMOGRAPHIC. DATE OF PROCEDURE: May 21, 2017, INDICATION : Chest pain CARDIAC RISK FACTORS: Diabetes, hypertension, dyslipidemia RESTING EKG: Sinus rhythm, nonspecific ST-T wave changes noted inferior and lateral chest leads. STRESS EKG: No significant changes noted with LexiScan bolus REASON FOR TERMINATION: Protocol. PROCEDURE REPORT: Baseline heart rate 63 beats per minute with blood pressure of 117/80. Patient had no significant complaints. Heart rate at 2 minutes post bolus 93 with a blood pressure of 133 6/77. 3 minutes post bolus heart rate 74 with blood pressure of 129/76. No significant EKG changes were noted. Patient had no significant complaints during the procedure or postprocedure. Patient injected with Aminophyllin 75 mg at 3 minutes or later after Lexiscan bolus. CONCLUSIONS: Normal EKG and hemodynamic response to IV LexiScan. NUCLEAR DATA: At rest the patient was given 12.41 millicuries of technetium 99 sestamibi injected intravenously. As per protocol rest gated SPECT images were obtained. On day of stress test, the patient was given intravenous LexiScan at a dose of 0.4 mg in 5 mL intravenously, followed by flush with normal saline. Subsequently the stress dose of 36.5 millicuries of technetium 99 sestamibi was injected intravenously. As per protocol stress gated images were obtained. NUCLEAR INTERPRETATION: Both raw and processed data were used for interpretation. Visual, qualitative, computer-generated quantitative data was used. There was good myocardial uptake of technetium compound. Motion artifact and soft tissue attenuations were noted. Increased visceral uptake was noted. No definitive areas of transient perfusion defect noted, No definitive areas of fixed perfusion defect or scars noted. EKG gated imaging showed LV EF at 55 %, rest and stress gated EF similar visually. T. I D. ratio was 1.11. Lung heart ratio noted to be within normal limits 0.28. No significant extracardiac and abnormal radiotracer activities were noted. RV free wall uptake was noted to be WNL. IMPRESSION: Also refer to comments under nuclear interpretation. Also test results needs to be interpreted in the context of pretest probability. 1. No definitive areas of transient perfusion defect noted. 2. There is no definitive scintigraphic evidence of myocardial infarction/scar. 3. EKG gated imaging shows left ventricular ejection fraction of approx. 55 %. 4. Clinical correlation requested as occasionally single vessel disease or balanced ischemia could be missed. In approximately 10% of the cases Lexiscan may not cause adequate vasodilatory stress. RECOMMENDATIONS: Aggressive risk factor modification and medical management. Further evaluation may be needed if continued symptoms or other high risk indicators are noted on clinical evaluation. Close cardiology follow-up is also recommended. Clinical correlation with echocardiogram derived ejection fraction. Inability to exercise by itself can lead to increased cardiovascular event risks. Consider cardiology consultation and or follow-up if clinically indicated. I am available for cardiology evaluation and consultation if requested by the jewel stripper, unless patient already has a bleacher sulfite pulp. LELA
[2017-05-21 13:14] VITALS: BP 137/86
[2017-05-21] MEDS ORDERED: AMINOPHYLLINE INJ/PF 250 MG/10 ML SDV IV ONE (13:23)
[2017-05-21] MEDS ORDERED: REGADENOSON INJ 0.4 MG/5 ML DISP.SYRIN IV ONE (13:23)
--- NOTE | 2017-05-22 17:30 | PDOC DISCHARGE SUMMARY ---
General - Admit/Disc Date/PCP Admission Date/Primary Care Provider: 05/20/17 18:06 Discharge Date: 05/21/17 - Discharge Diagnosis (1) Chest pain Is this a current diagnosis for this admission?: Yes (2) Hypotension Is this a current diagnosis for this admission?: Yes (3) Back pain Is this a current diagnosis for this admission?: Yes (4) Diabetes Is this a current diagnosis for this admission?: Yes (5) History of CVA with residual deficit Is this a current diagnosis for this admission?: Yes - Additional Information Resuscitation Status: Full Code Discharge Diet: Diabetic Discharge Activity: Activity As Tolerated Prescriptions: Gabapentin [Neurontin 300 mg Capsule] 300 mg PO Q12 #30 capsule Tizanidine HCl [Zanaflex 4 mg Tablet] 4 mg PO TID #30 tablet Home Medications: Aspirin [Ecotrin 81 mg EC Tablet] 81 mg PO DAILY 05/20/17 Atorvastatin Calcium [Lipitor 80 mg Tablet] 80 mg PO QHS 05/20/17 Carvedilol [Coreg 12.5 mg Tablet] 12.5 mg PO Q12 05/20/17 Famotidine [Pepcid 20 mg Tablet] 20 mg PO DAILY 05/20/17 Finasteride [Proscar 5 mg Tablet] 5 mg PO DAILY 05/20/17 Furosemide [Lasix 20 mg Tablet] 10 mg PO DAILY 05/20/17 Metformin HCl [Glucophage] 1,000 mg PO BID 05/20/17 Nitroglycerin [Nitrostat] 0.4 mg SL Q5MP PRN 05/20/17 Silodosin [Rapaflo] 8 mg PO [id number] 05/20/17 Spironolactone [Aldactone 25 mg Tablet] 25 mg PO DAILY 05/20/17 Gabapentin [Neurontin 300 mg Capsule] 300 mg PO Q12 #30 capsule 05/21/17 Lisinopril [Prinivil 10 mg Tablet] 10 mg PO DAILY tablet 05/21/17 Tizanidine HCl [Zanaflex 4 mg Tablet] 4 mg PO TID #30 tablet 05/21/17 History of Present Illness History of Present Illness: OBI TORRES is a 62 year old male arrived to emergency room via ambulance. Patient stated that while he was at Dr. Reece's office when he was following up for his prostate exam, he began experiencing chest pain in the middle of the chest. Accordingly it felt like when swallowing a coin. He wanted to take a nitroglycerin however did not proceed since he was told that the blood pressure was in the low 90s. Afterwards his PCP was contacted and recommended for him to go to emergency room. While in route he was administered aspirin and nitroglycerin with further improvement. While in emergency room he has been evaluated through 2 sets of cardiac enzymes which had been negative. According to he had a stress test around a year ago which was negative. Due to comorbidities the hospitalist service was contacted and was admitted. Patient also complained of lower back pain which has been ongoing and also of having a cold sensation in the left side of his body since he had a stroke back in February Hospital Course Hospital Course: Patient was admitted to telemetry unit. There were no cardiac dysrhythmias. Third set of troponin was negative. Patient underwent nuclear stress test which was negative.We adjusted antihypertensive regimen. He usually takes lisinopril 20 mg p.o. daily and had been advised to take 10 mg p.o. daily. He has an appointment to see his die hardener and has been advised as to follow-up with him in this regard. Lower back pain responded to muscle relaxer and gabapentin. A prescription has been given for these 2 medications. has been advised for patient to follow-up with his primary care provider as scheduled. Since patient had achieved maximum benefit of hospitalization stay prompted to discharge under stable condition Physical Exam Vital Signs: Temp Pulse Resp BP Pulse Ox 98.4 F 79 18 137/86 H 100 05/21/17 11:43 05/21/17 13:13 05/21/17 11:43 05/21/17 13:13 05/21/17 11:43 Intake & Output 05/20/17 05/21/17 05/22/17 06:59 06:59 06:59 Intake Total 103 960 Output Total 175 505 Balance -72 455 Weight 81.8 kg General appearance: PRESENT: no acute distress, cooperative, obese Head exam: PRESENT: atraumatic, normocephalic Eye exam: PRESENT: EOMI, PERRLA Ear exam: PRESENT: normal external ear exam, TM's normal bilaterally Mouth exam: PRESENT: moist, neck supple Neck exam: PRESENT: full ROM. ABSENT: JVD, tenderness, thyromegaly Respiratory exam: PRESENT: clear to auscultation faiza Cardiovascular exam: PRESENT: RRR. ABSENT: diastolic murmur, systolic murmur Pulses: PRESENT: normal carotid pulses, normal dorsalis pedis pul Vascular exam: PRESENT: normal capillary refill GI/Abdominal exam: PRESENT: normal bowel sounds, soft. ABSENT: tenderness Extremities exam: PRESENT: tenderness. ABSENT: clubbing, full ROM Musculoskeletal exam: PRESENT: ambulatory Neurological exam: PRESENT: alert, awake, oriented to person, oriented to place , oriented to time, oriented to situation, CN II-XII grossly intact Psychiatric exam: PRESENT: appropriate affect, normal mood Skin exam: PRESENT: intact, normal color Results Laboratory Results: 05/21/17 06:13 05/21/17 06:13 05/21/17 05/21/17 06:13 06:13 WBC 8.6 RBC 4.14 L Hgb 13.2 L Hct 37.7 L MCV 91 MCH 31.9 MCHC 35.1 RDW 14.3 H Plt Count 114 L Seg Neutrophils % 72.3 Lymphocytes % 17.0 Monocytes % 8.7 Eosinophils % 1.6 Basophils % 0.4 Absolute Neutrophils 6.2 Absolute Lymphocytes 1.5 Absolute Monocytes 0.7 Absolute Eosinophils 0.1 Absolute Basophils 0.0 Sodium 135.1 L Potassium 4.2 Chloride 102 Carbon Dioxide 24 Anion Gap 9 BUN 27 H Creatinine 1.04 Est GFR ( Amer) > 60 Est GFR (Non-Af Amer) > 60 Glucose 120 H Calcium 9.5 05/20/17 05/21/17 05/21/17 23:00 00:28 06:13 Troponin I 0.019 < 0.012 < 0.012 Impressions: Chest X-Ray 05/20/17 12:30 IMPRESSION: NO ACUTE RADIOGRAPHIC FINDING IN THE CHEST. Head CT 05/20/17 12:56 IMPRESSION: 1. MILD CHRONIC CHANGES OF ATROPHY AND MICROVASCULAR ISCHEMIA. OLD LACUNAR INFARCTS. NO ACUTE PROCESS. 2. CHRONIC RIGHT MAXILLARY SINUS DISEASE. EVIDENCE OF ACUTE STROKE: NO. Chest/Abdomen CTA 05/20/17 12:58 IMPRESSION: 1. NORMAL CTA OF THE CHEST. NO PULMONARY EMBOLI. 2. HETEROGENOUS NODULARITY OF THE LEFT LOBE OF THE THYROID WITH SUBSTERNAL EXTENSION, UNCHANGED. 3. INCIDENTAL SMALL FATTY LESION IN THE RIGHT ADRENAL GLAND, UNCHANGED. Plan Discharge Plan: Discharge home Time Spent: Less than 30 Minutes
== END 2017-05-21 15:15 | disposition home or self-care (01) ==
LOC: ER 12:26 → EH 18:06 → ICU 05-21 02:18
PROVIDERS: ADMIT Emergency Medicine; ATTEND Emergency Medicine
DX: R07.9 Chest pain, unspecified (principal); I95.2 Hypotension due to drugs; G89.29 Other chronic pain; M54.5 Low back pain; E11.8 Type 2 diabetes mellitus with unspecified complications; N40.0 Benign prostatic hyperplasia without lower urinary tract symptoms; R51 Headache; I73.9 Peripheral vascular disease, unspecified; I11.0 Hypertensive heart disease with heart failure; I50.9 Heart failure, unspecified; F32.9 Major depressive disorder, single episode, unspecified; R11.2 Nausea with vomiting, unspecified; I69.398 Other sequelae of cerebral infarction; R20.8 Other disturbances of skin sensation; R06.02 Shortness of breath; R47.01 Aphasia; R53.1 Weakness; Z79.899 Other long term (current) drug therapy; Z79.82 Long term (current) use of aspirin; Z79.84 Long term (current) use of oral hypoglycemic drugs; Z82.49 Family history of ischemic heart disease and other diseases of the circulatory system; Z87.442 Personal history of urinary calculi
CPT/HCPCS: 93005; 99285; 36415 ×2; 82553; 82962 ×2; 82550; 85025 ×2; 80048; 80053; 84484 ×2; 93017; 71045; 78452; 70450; 71275; 93010; G0378 ×2; A9500; J2785; J3490 ×9; J1644 ×2; J1815; J2270 ×2; J0280; Q9969

== ENCOUNTER 2018-04-12 14:05 | Emergency (ER) | payer MEDICAID, OTHER ==
[2018-04-12 14:13] VITALS: BP 138/75
[2018-04-12] MEDS ORDERED: CEPHALEXIN 500 MG CAPSULE PO ONE (14:33)
[2018-04-12] MEDS ORDERED: SULFAMETHOXAZOLE/TRIMETHOPRIM 800-160 MG TABLET PO ONE (14:33)
[2018-04-12] MEDS ORDERED: ONDANSETRON 4 MG TAB.RAPDIS PO ONE (14:33)
--- NOTE | 2018-04-12 14:49 | ER Document Report ---
ED General - General Chief Complaint: Wound Recheck Stated Complaint: LEG LACERATION Time Seen by Provider: 04/12/18 14:33 Mode of Arrival: Ambulatory Information source: Patient, Relative Notes: 63-year-old male with diabetes, congestive heart failure, previous CVA presents with complaint of right lower extremity pain and swelling. Patient states that one week ago he cut his leg with a ratchet tie. He states a few days after that he noticed redness around the abrasion he sustained. Patient denies any fever, chest pain, shortness of breath, abdominal pain, headache. He does admit to feeling nauseous today but has not vomited, he does admit to chills. TRAVEL OUTSIDE OF THE [place] IN LAST 30 DAYS: No - HPI Onset: Last week Onset/Duration: Gradual, Persistent Quality of pain: Achy, Burning Severity: Mild Associated symptoms: Nausea. denies: Chest pain, Fever, Vomiting, Shortness of breath Exacerbated by: Walking Relieved by: Denies Similar symptoms previously: No Recently seen / treated by doctor: No - Related Data Allergies/Adverse Reactions: No Known Allergies Allergy (Verified 05/20/17 12:42) Past Medical History - General Information source: Patient, Relative, [facility] Records - Social History Smoking Status: Former Smoker Frequency of alcohol use: None Drug Abuse: None Lives with: Spouse/Significant other Family History: DM, Other - Patient states family history of aneurysms Patient has suicidal ideation: No Patient has homicidal ideation: No - Past Medical History Cardiac Medical History: Reports: Hx Congestive Heart Failure, Hx Hypercholesterolemia, Hx Hypertension, Hx Peripheral Vascular Disease Denies: Hx Coronary Artery Disease, Hx Heart Attack Pulmonary Medical History: Denies: Hx Asthma, Hx Bronchitis, Hx COPD, Hx Pneumonia, Hx Tuberculosis Neurological Medical History: Reports: Hx Cerebrovascular Accident. Denies: Hx Seizures Endocrine Medical History: Reports: Hx Diabetes Mellitus Type 2 Renal/ Medical History: Reports: Hx Kidney Stones. Denies: Hx Benign Prostatic Hyperplasia, Hx End Stage Renal Disease, Hx Peritoneal Dialysis Malignancy Medical History: Reports Hx Prostate Cancer GI Medical History: Denies: Hx Cirrhosis, Hx Gastroesophageal Reflux Disease, Hx Ulcer Musculoskeletal Medical History: Denies Hx Arthritis, Denies Hx Multiple Sclerosis Psychiatric Medical History: Denies: Hx Bipolar Disorder, Hx Depression, Hx Schizophrenia Past Surgical History: Reports: Hx Orthopedic Surgery - Immunizations Hx Diphtheria, Pertussis, Tetanus Vaccination: No Review of Systems - Review of Systems Notes: REVIEW OF SYSTEMS: CONSTITUTIONAL : Denies fever, sweats. Denies recent illness. Denies weight loss, recent hospitalizations. EENT: Denies visual changes, eye pain. Denies sore throat, oral lesions, difficulty swallowing. CARDIOVASCULAR: Denies chest pain. Denies palpitations. Denies lower extremity edema. RESPIRATORY: Denies cough. Denies shortness of breath, wheezing. GASTROINTESTINAL: Denies abdominal pain or distention. Denies vomiting, or diarrhea. Denies blood in vomitus, stools, or per rectum. Denies black, tarry stools. Denies constipation. GENITOURINARY: Denies difficulty urinating, painful urination, frequency, blood in urine, testicular pain or penile discharge. MUSCULOSKELETAL: Denies back or neck pain or stiffness. Denies joint pain or swelling. SKIN: + Right lower extremity abrasion, erythema HEMATOLOGIC : Denies easy bruising or bleeding. LYMPHATIC: Denies swollen glands. NEUROLOGICAL: Denies confusion or altered mental status. Denies loss of consciousness. Denies dizziness or lightheadedness. Denies headache. Denies weakness or paralysis. Denies problems difficulty with ambulation, slurred speech. Denies sensory loss, numbness, or tingling. Denies seizures. PSYCHIATRIC: Denies anxiety or stress. Denies depression, suicidal ideation, or Physical Exam - Vital signs Vitals: Temp Pulse Resp BP Pulse Ox 97.3 F 63 15 138/75 H 98 04/12/18 14:12 04/12/18 14:12 04/12/18 14:12 04/12/18 14:12 04/12/18 14:12 - Notes Notes: PHYSICAL EXAMINATION: GENERAL: Well-appearing, well-nourished and in no acute distress. HEAD: Atraumatic, normocephalic. EYES: Pupils equal round and reactive to light, extraocular movements intact, sclera anicteric, conjunctiva are normal. ENT: Nares patent, oropharynx clear without exudates. Moist mucous membranes. NECK: Normal range of motion, supple without lymphadenopathy LUNGS: Breath sounds clear to auscultation bilaterally and equal. No wheezes rales or rhonchi. HEART: Regular rate and rhythm without murmurs ABDOMEN: Soft, nontender, nondistended abdomen. No guarding, no rebound. No masses appreciated. Musculoskeletal: Normal range of motion, no pitting or edema. No cyanosis. Right lower extremity-large 4 x 3 superficial abrasion with surrounding erythema , warmth and is tender with palpation. No calf swelling. NEUROLOGICAL: Cranial nerves grossly intact. Normal speech, normal gait. Normal sensory, motor exams PSYCH: Normal mood, normal affect. SKIN: Right lower extremity-large 4 x 3 superficial abrasion with surrounding erythema, warmth and is tender with palpation. No induration, fluctuance. Course - Re-evaluation Re-evalutation: Temp Pulse Resp BP Pulse Ox 97.3 F 63 15 138/75 H 98 04/12/18 14:12 04/12/18 14:12 04/12/18 14:12 04/12/18 14:12 04/12/18 14:12 04/12/18 14:47 Patient presents with symptoms most consistent with an acute cellulitis. Vitals within normal limits. Patient does not meet sepsis criteria is overall very well in appearance. Exam and history are not consistent with DVT. Patient will be started on coverage for both staph and strep. Area of erythema marked with skin marker. Patient tolerated his first dose of Bactrim and Keflex in the department. At this time will discharge with return precautions and follow- up recommendations. Verbal discharge instructions given a the bedside and opportunity for questions given. Medication warnings reviewed. Patient is in agreement with this plan and has verbalized understanding of return precautions and the need for primary care follow-up in the next 24-72 hours. 04/12/18 18:55 - Vital Signs Vital signs: Temp Pulse Resp BP Pulse Ox 97.3 F 63 15 138/75 H 98 04/12/18 14:12 04/12/18 14:12 04/12/18 14:12 04/12/18 14:12 04/12/18 14:12 Discharge - Discharge Clinical Impression: Cellulitis of right lower extremity, Abrasion, right lower leg, initial encounter, Nausea, History of CVA with residual deficit Condition: Good Disposition: HOME, SELF-CARE Instructions: Abrasions ([facility]), Cellulitis ([facility]), Nausea or Vomiting, Nonspecific ([facility]) Additional Instructions: The rash is likely due to infection of your skin. You need to take the antibiotics as prescribed. Do not stop even if the rash goes away until you have completed all the antibiotics. The area of redness was traced out here in the emergency department with a marking pen. You need to return to emergency department if the redness spreads outside of this area by more than 2 cm in any direction. You should also return if you develop fevers with temperature greater than 101, persistent vomiting, worsening pain, or have any other symptoms that are concerning to you. Prescriptions: Cephalexin Monohydrate [Keflex 500 mg Capsule] 500 mg PO BID 7 Days #14 capsule Ondansetron [Zofran Odt 4 mg Tablet] 1 tab PO Q4H PRN #15 tab.rapdis PRN Reason: For Nausea/Vomiting Sulfamethoxazole/Trimethoprim [Bactrim Ds Tablet] 1 each PO BID 7 Days #14 tablet Forms: Elevated Blood Pressure
== END 2018-04-12 15:03 | disposition home or self-care (01) ==
LOC: ER 14:05
DX: L03.115 Cellulitis of right lower limb (principal); S80.811A Abrasion, right lower leg, initial encounter; W26.0XXA Contact with knife, initial encounter; M79.661 Pain in right lower leg; R11.0 Nausea; I50.9 Heart failure, unspecified; E78.00 Pure hypercholesterolemia, unspecified; I11.0 Hypertensive heart disease with heart failure; E11.9 Type 2 diabetes mellitus without complications; Z87.442 Personal history of urinary calculi; Z86.73 Personal history of transient ischemic attack (TIA), and cerebral infarction without residual deficits; Z85.46 Personal history of malignant neoplasm of prostate
CPT/HCPCS: 99282; S0119; J3490

== ENCOUNTER 2018-04-21 23:28 | Emergency (ER) | payer MEDICAID, OTHER ==
[2018-04-22] MEDS ORDERED: CEPHALEXIN 500 MG CAPSULE PO ONE (02:00)
[2018-04-22] MEDS ORDERED: SULFAMETHOXAZOLE/TRIMETHOPRIM 800-160 MG TABLET PO ONE (02:00)
[2018-04-22] MEDS ORDERED: OXYCODONE-ACETAMINOPHEN 5-325 MG TABLET PO ONE (02:00)
--- NOTE | 2018-04-22 02:07 | ER Document Report ---
ED Extremity Problem, Lower - General Chief Complaint: Leg Pain Stated Complaint: LEG PAIN Time Seen by Provider: 04/22/18 01:47 TRAVEL OUTSIDE OF THE [place] IN LAST 30 DAYS: No - HPI Notes: Patient is a 63-year-old male that presents to the emergency department for chief complaint of right leg wound. Patient states that a little over a week ago he cut his right leg on a ratchet strap. He was seen in the emergency room and prescribed antibiotics. He finished the antibiotics 2 days ago. He states that since then he has had increased pain in the area. He denies any increase in the redness. He denies any drainage from the area. He has an appointment with his primary care doctor on April 28 for follow-up. He denies any fevers or chills. He denies new injury. Past Medical History: Diabetes Past Surgical History: Reviewed in chart Social History: Reviewed in chart Family History: Reviewed and noncontributory for presenting illness Allergies: Reviewed, see documented allergy list. REVIEW OF SYSTEMS: CONSTITUTIONAL : No fever No chills No diaphoresis No recent illness EENT: No vision changes No congestion No sore throat CARDIOVASCULAR: No chest pain No palpitations RESPIRATORY: No shortness of breath No cough No difficulty breathing GASTROINTESTINAL: No abdominal pain No nausea No vomiting No diarrhea GENITOURINARY: No dysuria No hematuria No difficulty urinating MUSCULOSKELETAL: No back pain leg pain No arm pain SKIN: No rashes No lesions LYMPHATIC: No swollen, enlarged glands. NEUROLOGICAL: No lightheadedness No headache No weakness No paresthesias PSYCHIATRIC: No anxiety No depression PHYSICAL EXAMINATION: Vital signs reviewed, nursing noted reviewed. GENERAL: Well-appearing, well-nourished and in no acute distress. HEAD: Atraumatic, normocephalic. EYES: Eyes appear normal, extraocular movements intact, sclera anicteric, conjunctiva are normal. ENT: nares patent, oropharynx clear without exudates. Moist mucous membranes. NECK: Normal range of motion, supple without lymphadenopathy LUNGS: Breath sounds clear to auscultation bilaterally and equal. No wheezes rales or rhonchi. HEART: Regular rate and rhythm without murmurs ABDOMEN: Soft, nontender, normoactive bowel sounds. No rebound, guarding, or rigidity. No masses appreciated. EXTREMITIES: good range of motion, . NEUROLOGICAL: No focal neurological deficits. Moves all extremities spontaneously Motor and sensory grossly intact on exam. PSYCH: Normal mood, normal affect. SKIN: Warm, Dry, normal turgor, localized pretibial right lower extremity edema, erythema and overlying scab that is tender to palpation - Related Data Allergies/Adverse Reactions: No Known Allergies Allergy (Verified 05/20/17 12:42) Past Medical History - Social History Smoking Status: Former Smoker Family History: DM, Other - Patient states family history of aneurysms - Past Medical History Cardiac Medical History: Reports: Hx Congestive Heart Failure, Hx Hypercholesterolemia, Hx Hypertension, Hx Peripheral Vascular Disease Denies: Hx Coronary Artery Disease, Hx Heart Attack Pulmonary Medical History: Denies: Hx Asthma, Hx Bronchitis, Hx COPD, Hx Pneumonia, Hx Tuberculosis Neurological Medical History: Reports: Hx Cerebrovascular Accident. Denies: Hx Seizures Endocrine Medical History: Reports: Hx Diabetes Mellitus Type 2 Renal/ Medical History: Reports: Hx Kidney Stones. Denies: Hx Benign Prostatic Hyperplasia, Hx End Stage Renal Disease, Hx Peritoneal Dialysis Malignancy Medical History: Reports Hx Prostate Cancer GI Medical History: Denies: Hx Cirrhosis, Hx Gastroesophageal Reflux Disease, Hx Ulcer Musculoskeletal Medical History: Denies Hx Arthritis, Denies Hx Multiple Sclerosis Psychiatric Medical History: Denies: Hx Bipolar Disorder, Hx Depression, Hx Schizophrenia Past Surgical History: Reports: Hx Orthopedic Surgery - Immunizations Hx Diphtheria, Pertussis, Tetanus Vaccination: No Physical Exam - Vital signs Vitals: Temp Pulse Resp BP Pulse Ox 98.3 F 74 17 137/89 H 98 04/21/18 23:37 04/21/18 23:37 04/21/18 23:37 04/21/18 23:37 04/21/18 23:37 Course - Re-evaluation Re-evalutation: 04/22/18 02:07 Vitals reviewed. Nursing notes reviewed. Patient is afebrile and nontoxic. He still has the marked line from his previous visit and his erythema is significantly improved since then. He has very minimal redness surrounding his wound. There is a overlying scab with no open areas. Patient's wound is tender to palpation and with palpation I did express a trace amount of purulence from underneath the scab. Patient has been improving on Bactrim and Keflex and likely is requiring a few more days of antibiotics. He will be given these prescriptions. He will be referred to wound care for close wound follow-up. He was counseled on symptoms to return to the emergency room and verbalized understanding. His wound was outlined again today. Patient was given Percocet for pain. X-ray obtained to evaluate for underlying fracture since he states that no x-ray had been obtained and is complaining of severe pain. 04/22/18 02:36 Patient's x-ray shows no periosteal changes to suggest underlying osteomyelitis. His wound overall is improving. He will be discharged home on antibiotics and wound care follow-up. - Vital Signs Vital signs: Temp Pulse Resp BP Pulse Ox 98.3 F 74 17 137/89 H 98 04/21/18 23:37 04/21/18 23:37 04/21/18 23:37 04/21/18 23:37 04/21/18 23:37 - Diagnostic Test Radiology reviewed: Image reviewed Discharge - Discharge Clinical Impression: Leg wound, right Qualifiers: Encounter type: subsequent encounter Qualified Code(s): S81.801D - Unspecified open wound, right lower leg, subsequent encounter Condition: Stable Disposition: HOME, SELF-CARE Instructions: Cellulitis ([facility]) Additional Instructions: Please return to the emergency department if you have any worsening, or concern of your symptoms. Please return to the emergency department if you develop chest pain, difficulty breathing, severe abdominal pain, or ongoing vomiting. Please follow-up with your primary care physician in 2-3 days and any other recommended physicians. If prescribed, take all medications as directed. If you have any questions or concerns do not hesitate to return the emergency department for evaluation. If the redness increases past to the demarcated line you should return to the emergency room Prescriptions: Cephalexin Monohydrate [Keflex 500 mg Capsule] 500 mg PO BID #10 capsule Sulfamethoxazole/Trimethoprim [Bactrim Ds Tablet] 1 each PO BID #10 tablet Referrals: WOUND CARE [Outside] - Follow up in 3-5 days
--- NOTE | 2018-04-22 02:37 | RADIOLOGY REPORT (SQ) ---
EXAM DESCRIPTION: XR TIBIA FIBULA 2 VIEWS COMPLETED DATE/TME: 04/22/2018 02:00 CLINICAL HISTORY: 63 years, Male, wound COMPARISON: None. NUMBER OF VIEWS: 2 TECHNIQUE: 2 view right tibia fibula LIMITATIONS: None. FINDINGS: Negative for fracture or dislocation. No radiopaque foreign body. Soft tissues are unremarkable. IMPRESSION: Negative exam copyright 2010 [employer]- All Rights Reserved
[2018-04-22 02:42] VITALS: BP 125/83
== END 2018-04-22 02:42 | disposition home or self-care (01) ==
LOC: ER 23:28
DX: S81.811A Laceration without foreign body, right lower leg, initial encounter (principal); W45.8XXA Other foreign body or object entering through skin, initial encounter; E13.51 Other specified diabetes mellitus with diabetic peripheral angiopathy without gangrene; I10 Essential (primary) hypertension; Z87.891 Personal history of nicotine dependence; Z85.46 Personal history of malignant neoplasm of prostate
CPT/HCPCS: 99283; 73590; J3490

== ENCOUNTER → 2018-10-17 | Outpatient (CLI) | payer MEDICAID ==
--- NOTE | 2018-10-17 12:00 | RADIOLOGY REPORT (SQ) ---
EXAM DESCRIPTION: L SPINE W/FLEX/EXT COMPLETED DATE/TIME: 10/17/2018 9:58 am REASON FOR STUDY: BACK PAIN (M54.9) M54.9 DORSALGIA, UNSPECIFIED COMPARISON: None. NUMBER OF VIEWS: 6 views TECHNIQUE: AP oblique views were obtained. Lateral views were obtained in neutral, flexion, and ext ension. LIMITATIONS: None. FINDINGS: MINERALIZATION: Normal. SEGMENTATION: Possible sacralization of L5. ALIGNMENT: Grade 1 anterolisthesis of L4 on L5. FLEXION/EXTENSION: No instability. VERTEBRAE: Maintained height. No fracture or worrisome bone lesion. DISCS: Disc spaces are narrowed at L2-3 and L3-4. No disc space is seen at L5-S1. POSTERIOR ELEMENTS: Posterior and lateral fusion from L3 -S1. HARDWARE: None in the spine. OTHER: No other significant finding. IMPRESSION: Degenerative disc disease. Surgical changes. Anterolisthesis of L4 on L5. No instabil ity. TECHNICAL DOCUMENTATION: JOB ID: [id number] [employer]- All Rights Reserved Reading location - IP/workstation name: [email or web address]
== END ==
LOC: RAD 09:26
PROVIDERS: ATTEND Nurse Practitioner Primary Care
DX: M51.36 Other intervertebral disc degeneration, lumbar region (principal); M54.5 Low back pain
CPT/HCPCS: 72114

== ENCOUNTER → 2019-01-11 | Outpatient (CLI) | payer MEDICAID ==
--- NOTE | 2019-01-11 16:25 | RADIOLOGY REPORT (SQ) ---
EXAM DESCRIPTION: ANKLE LEFT COMPLETE COMPLETED DATE/TIME: 01/11/2019 3:29 pm REASON FOR STUDY: S99.922A UNSPECIFIED INJURY OF LEFT FOOT, INITIAL ENCOUNTER S99.922A UNSPECIFIED INJURY OF LEFT FOOT, INITIAL ENCOUNTER COMPARISON: None. NUMBER OF VIEWS: Two views. TECHNIQUE: AP and lateral radiographic images acquired of the left ankle. LIMITATIONS: None. FINDINGS: MINERALIZATION: Normal. BONES: No acute fracture or dislocation. No worrisome bone lesions. JOINTS: No effusions. SOFT TISSUES: No soft tissue swelling. No foreign body. OTHER: No other significant finding. IMPRESSION: NEGATIVE STUDY OF THE LEFT ANKLE. NO RADIOGRAPHIC EVIDENCE OF ACUTE INJURY. TECHNICAL DOCUMENTATION: JOB ID: [id number] [employer]- All Rights Reserved Reading location - IP/workstation name: [email or web address]
--- NOTE | 2019-01-11 16:25 | RADIOLOGY REPORT (SQ) ---
EXAM DESCRIPTION: FOOT LEFT COMPLETE COMPLETED DATE/TIME: 01/11/2019 3:29 pm REASON FOR STUDY: S99.922A UNSPECIFIED INJURY OF LEFT FOOT, INITIAL ENCOUNTER S99.922A UNSPECIFIED INJURY OF LEFT FOOT, INITIAL ENCOUNTER COMPARISON: None. NUMBER OF VIEWS: Three views. TECHNIQUE: AP, lateral and oblique radiographic images acquired of the left foot. LIMITATIONS: None. FINDINGS: MINERALIZATION: Normal. BONES: No acute fracture or dislocation. No worrisome bone lesions. JOINTS: No effusions. SOFT TISSUES: No soft tissue swelling. No foreign body. OTHER: No other significant finding. IMPRESSION: NEGATIVE STUDY OF THE LEFT FOOT. NO RADIOGRAPHIC EVIDENCE OF ACUTE INJURY. TECHNICAL DOCUMENTATION: JOB ID: [id number] [employer]- All Rights Reserved Reading location - IP/workstation name: [email or web address]
== END ==
LOC: RAD 14:59
PROVIDERS: ATTEND Nurse Practitioner Primary Care
DX: S99.922A Unspecified injury of left foot, initial encounter (principal)

== ENCOUNTER 2019-01-23 04:23 | Emergency (ER) | payer MEDICAID ==
[2019-01-23] MEDS ORDERED: METOCLOPRAMIDE HCL INJ/PF 10 MG/2 ML SDV IV ONE (04:45)
[2019-01-23] MEDS ORDERED: NORMAL SALINE 500 ML IV ONE (04:45)
[2019-01-23] MEDS ORDERED: DIPHENHYDRAMINE HCL 50 MG/ML VIAL IV ONE (04:45)
[2019-01-23] MEDS ORDERED: DEXAMETHASONE SOD PHOS INJ 10 MG/1 ML VIAL IV ONE (04:45)
[2019-01-23] MEDS ORDERED: BUTALB/ACETAMINOPHEN/CAFFEINE 1 TAB EACH PO ONE (04:45)
[2019-01-23 05:12] LABS: HEMATOCRIT 43.5 % (37.9-51.0); HEMOGLOBIN 14.7 g/dL (13.5-17.0); MEAN CORPUSCULAR HEMOGLOBIN 31.1 pg (27.0-33.4); MEAN CORPUSCULAR HGB CONC 33.7 g/dL (32.0-36.0); MEAN CORPUSCULAR VOLUME 92 fl (80-97); PLATELET COUNT 107 10^3/uL (150-450); RED BLOOD COUNT 4.72 10^6/uL (4.35-5.55); RED CELL DISTRIBUTION WIDTH 13.9 % (11.5-14.0); WHITE BLOOD COUNT 5.6 10^3/uL (4.0-10.5)
--- NOTE | 2019-01-23 05:24 | ER Document Report ---
ED Headache - General Chief Complaint: Headache Stated Complaint: HEADACHE Time Seen by Provider: 01/23/19 04:37 TRAVEL OUTSIDE OF THE [place] IN LAST 30 DAYS: No - HPI Notes: This is a 64-year-old gentleman who presents today with a complaint of a gradual onset headache that started this morning. Patient describes a throbbing headache, photophobia and phonophobia. Headache is worse with light and noise exposure. He describes slight nausea. He denies any neck pain or stiffness. He denies any fever or chills. He denies any weakness. He denies any focal neurologic complaints. Patient states that he had a headache when he had a stroke back in 2017 so he is concerned. He describes headache as an 8 out of 10, and it is gradual onset. He has had similar headaches in the past before. - Related Data Allergies/Adverse Reactions: No Known Allergies Allergy (Verified 05/20/17 12:42) Past Medical History - Social History Smoking Status: Unknown if Ever Smoked Family History: DM, Other - Patient states family history of aneurysms Patient has suicidal ideation: No Patient has homicidal ideation: No - Past Medical History Cardiac Medical History: Reports: Hx Congestive Heart Failure, Hx Hypercholesterolemia, Hx Hypertension, Hx Peripheral Vascular Disease Denies: Hx Coronary Artery Disease, Hx Heart Attack - CHF Pulmonary Medical History: Denies: Hx Asthma, Hx Bronchitis, Hx COPD, Hx Pneumonia, Hx Tuberculosis Neurological Medical History: Reports: Hx Cerebrovascular Accident - SPEECH DEFICIT, LEFT SIDED WEAKNESS . Denies: Hx Seizures, Hx Parkinson's Disease Endocrine Medical History: Reports: Hx Diabetes Mellitus Type 2 Renal/ Medical History: Reports: Hx Kidney Stones. Denies: Hx Benign Prostatic Hyperplasia, Hx End Stage Renal Disease, Hx Peritoneal Dialysis Malignancy Medical History: Reports Hx Prostate Cancer GI Medical History: Denies: Hx Cirrhosis, Hx Gastroesophageal Reflux Disease, Hx Hepatitis, Hx Hiatal Hernia, Hx Ulcer Musculoskeletal Medical History: Denies Hx Arthritis, Denies Hx Multiple Sclerosis Psychiatric Medical History: Denies: Hx Bipolar Disorder, Hx Depression, Hx Schizophrenia Infectious Medical History: Denies: Hx Hepatitis Past Surgical History: Reports: Hx Orthopedic Surgery. 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 denies: Abdominal pain, Diarrhea Neurological/Psychological: Headaches. denies: Weakness, Speech impairment, Numbness -: Yes All other systems reviewed and negative Physical Exam - Vital signs Vitals: Temp Pulse Resp BP Pulse Ox 98.3 F 99 18 151/83 H 100 01/23/19 04:31 01/23/19 04:31 01/23/19 04:31 01/23/19 04:31 01/23/19 04:31 - General General appearance: Appears well, Alert - HEENT Head: Normocephalic, Atraumatic Eyes: Normal Pupils: PERRL - Respiratory Respiratory status: No respiratory distress Chest status: Nontender Breath sounds: Normal Chest palpation: Normal - Cardiovascular Rhythm: Regular Heart sounds: Normal auscultation Murmur: No - Abdominal Inspection: Normal Distension: No distension Bowel sounds: Normal Tenderness: Nontender Organomegaly: No organomegaly - Neurological Neuro grossly intact: Yes Cognition: Normal Orientation: AAOx4 - There is no motor, sensory or cerebellar deficits. Nonfocal neurologic exam. GCS is 15. NIH stroke score is 0. 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 Differential diagnosis also includes nonspecific headache versus tension headache. I doubt acute CVA with nonfocal neurologic exam. Doubt head bleed. Given the patient's history, I will get a head CT scan. We will treat for migraines. 01/23/19 06:12 Pt re-evlauated. Doing better. CT unremarkable. Will recheck after meds. PT's care discussed with Dr. Londono. She will re-assess patient. I anticipate discharge. I have discussed plan with patient. - Vital Signs Vital signs: Temp Pulse Resp BP Pulse Ox 98.3 F 99 18 162/97 H 93 01/23/19 04:31 01/23/19 04:31 01/23/19 04:31 01/23/19 05:34 01/23/19 05:34 - Laboratory Result Diagrams: 01/23/19 04:40 01/23/19 04:40 Laboratory results interpreted by me: 01/23/19 04:40 Plt Count 107 L Seg Neuts % (Manual) 91 H Lymphocytes % (Manual) 3 L Monocytes % (Manual) 2 L Abs Lymphs (Manual) 0.2 L Discharge - Discharge Clinical Impression: Migraine Qualifiers: Migraine type: unspecified Status migrainosus presence: without status migrainosus Intractability: not intractable Qualified Code(s): G43.909 - Migraine, unspecified, not intractable, without status migrainosus Condition: Stable Disposition: HOME, SELF-CARE Instructions: Headache ([facility]), Migraine Headache ([facility]) Additional Instructions: Return if worsening headaches or concerns. Prescriptions: Butalb/Acetaminophen/Caffeine [Fioricet 50-300-40 mg Capsule] 1 cap PO Q4 PRN #20 cap PRN Reason: for pain Ondansetron [Zofran Odt 4 mg Tablet] 1 tab PO Q4H PRN #15 tab.rapdis PRN Reason: For Nausea/Vomiting [facility]: [facility] [NO [facility]AL MD] - Follow up as needed
[2019-01-23 05:37] LABS: ABSOLUTE LYMPHOCYTES# (MANUAL) 0.2 10^3/uL (0.5-4.7); ABSOLUTE MONOCYTES # (MANUAL) 0.1 10^3/uL (0.1-1.4); BAND NEUTROPHILS % (MANUAL) 4 % (3-5); BASOPHILS % (MANUAL) 0 % (0-2); EOSINOPHILS % (MANUAL) 0 % (0-6); LYMPHOCYTES % (MANUAL) 3 % (13-45); MONOCYTES % (MANUAL) 2 % (3-13); SEGMENTED NEUTROPHILS % (MAN) 91 % (42-78); TOTAL CELLS COUNTED 100
[2019-01-23 05:39] LABS: PLATELET COMMENT DECREASED; RBC MORPHOLOGY COMMENT NORMO-CYTIC/CHROMIC
--- NOTE | 2019-01-23 05:39 | RADIOLOGY REPORT (SQ) ---
CT head without contrast on 01/23/2019 at 5:08 AM CLINICAL INDICATION: Headache TECHNIQUE: Multiple axial images are obtained throughout the head without the administration of contrast. This exam was performed according to our departmental dose-optimization program, which includes automated exposure control, adjustment of the mA and/or kV according to patient size and/or use of iterative reconstruction technique. Total DLP is 1017.17 mGy*cm. COMPARISON: 05/20/2017 FINDINGS: There is generalized cerebral atrophy. There is low density in the periventricular white matter consistent with chronic small vessel ischemic changes. There is no hydrocephalus. There is no hemorrhage. There are no abnormal extra-axial fluid collections. There is no mass, mass effect or midline shift. There is no CT evidence of acute infarct. No bony abnormality is noted. Chronic right maxillary sinusitis is again noted. IMPRESSION: 1. Atrophy and chronic small vessel ischemic changes with no acute intracranial abnormality. 2. Chronic right maxillary sinusitis.
[2019-01-23] MEDS ORDERED: MORPHINE SULFATE 10 MG/ML INJ IV ONE (05:47)
[2019-01-23 07:02] LABS: ANION GAP 9 (5-19); BLOOD UREA NITROGEN 17 mg/dL (7-20); CALCIUM 8.7 mg/dL (8.4-10.2); CARBON DIOXIDE 24 mmol/L (22-30); CHLORIDE 105 mmol/L (98-107); GLUCOSE 154 mg/dL (75-110); POTASSIUM 3.9 mmol/L (3.6-5.0)
[2019-01-23] MEDS ORDERED: KETOROLAC TROMETHAMINE INJ/PF 30 MG/1 ML SDV IV ONE (07:43)
[2019-01-23 08:16] LABS: APPEARANCE,URINE CLEAR; BILIRUBIN,URINE NEGATIVE (NEGATIVE); COLOR,URINE YELLOW; GLUCOSE, URINE 50 mg/dL (NEGATIVE); KETONES,URINE NEGATIVE (NEGATIVE); LEUKOCYTE ESTERASE,URINE NEGATIVE (NEGATIVE); NITRITE,URINE NEGATIVE (NEGATIVE); PROTEIN,URINE NEGATIVE (NEGATIVE); URINE SPECIFIC GRAVITY 1.012
--- NOTE | 2019-01-23 08:28 | RADIOLOGY REPORT (SQ) ---
EXAM DESCRIPTION: CHEST 2 VIEWS COMPLETED DATE/TIME: 01/23/2019 8:18 am REASON FOR STUDY: chills COMPARISON: CTA chest 05/20/2017, AP chest 05/20/2017 EXAM PARAMETERS: NUMBER OF VIEWS: two views TECHNIQUE: Digital Frontal and Lateral radiographic views of the chest acquired. RADIATION DOSE: NA LIMITATIONS: none FINDINGS: LUNGS AND PLEURA: On the lateral view, trace pleural fluid is present in the posterior cos tophrenic sulci. Lungs are well inflated and clear. No pneumothorax. MEDIASTINUM AND HILAR STRUCTURES: No masses or contour abnormalities. HEART AND VASCULAR STRUCTURES: Mild cardiomegaly BONES: No acute findings. HARDWARE: Loop recorder over the anterior left chest. OTHER: No other significant finding. IMPRESSION: Trace bilateral pleural effusions TECHNICAL DOCUMENTATION: JOB ID: [id number] [employer]- All Rights Reserved Reading location - IP/workstation name: [email or web address]
[2019-01-23 08:46] LABS: A TYPE INFLUENZA AG NEGATIVE (NEGATIVE); B INFLUENZA AG NEGATIVE (NEGATIVE)
[2019-01-23] MEDS ORDERED: DOXYCYCLINE HYCLATE 100 MG TABLET PO ONE (09:22)
--- NOTE | 2019-01-23 09:31 | ER Document Report ---
ED General - General Chief Complaint: Headache Stated Complaint: HEADACHE Time Seen by Provider: 01/23/19 04:37 [facility] [NO LOCAL MD] - Follow up as needed TRAVEL OUTSIDE OF THE [place] IN LAST 30 DAYS: No - HPI Notes: Patient is a 64-year-old male who presents to the emergency department for evaluation. He was actually seen originally by my colleague overnight. He was getting ready to be discharged if his laboratory investigations did not show any significant abnormality. I went in to evaluate the patient. He was having shaking chills. He states he been having those since yesterday. He states he has been diaphoretic intermittently as well. He has had nausea and emesis. He has a headache and complains to me of generalized body aches. I done his laboratory review, which shows significant amount of neutrophils and, some bands noted. Decision was made to proceed with independent evaluation based on the fact that he was still feeling poorly. Patient does agree that his headache is improved somewhat, but still rates it is significant. He has photophobia and phonophobia. Denies any neck stiffness. I did recheck his temperature in the room, it was found to be 99.9. - Related Data Allergies/Adverse Reactions: No Known Allergies Allergy (Verified 05/20/17 12:42) Past Medical History - General Information source: Patient - Social History Smoking Status: Unknown if Ever Smoked Family History: DM, Other - Patient states family history of aneurysms Patient has suicidal ideation: No Patient has homicidal ideation: No - Past Medical History Cardiac Medical History: Reports: Hx Congestive Heart Failure, Hx Hypercholesterolemia, Hx Hypertension, Hx Peripheral Vascular Disease Denies: Hx Coronary Artery Disease, Hx Heart Attack - CHF Pulmonary Medical History: Denies: Hx Asthma, Hx Bronchitis, Hx COPD, Hx Pneumonia, Hx Tuberculosis Neurological Medical History: Reports: Hx Cerebrovascular Accident - SPEECH DEFICIT, LEFT SIDED WEAKNESS . Denies: Hx Seizures, Hx Parkinson's Disease Endocrine Medical History: Reports: Hx Diabetes Mellitus Type 2 Renal/ Medical History: Reports: Hx Kidney Stones. Denies: Hx Benign Prostatic Hyperplasia, Hx End Stage Renal Disease, Hx Peritoneal Dialysis Malignancy Medical History: Reports Hx Prostate Cancer GI Medical History: Denies: Hx Cirrhosis, Hx Gastroesophageal Reflux Disease, Hx Hepatitis, Hx Hiatal Hernia, Hx Ulcer Musculoskeletal Medical History: Denies Hx Arthritis, Denies Hx Multiple Sclerosis Psychiatric Medical History: Denies: Hx Bipolar Disorder, Hx Depression, Hx Schizophrenia Infectious Medical History: Denies: Hx Hepatitis Past Surgical History: Reports: Hx Orthopedic Surgery. Denies: Hx Open Heart Surgery, Hx Pacemaker - LOOP MONITOR - Immunizations Hx Diphtheria, Pertussis, Tetanus Vaccination: No Review of Systems - Review of Systems Constitutional: See HPI EENT: No symptoms reported Cardiovascular: No symptoms reported Respiratory: No symptoms reported Gastrointestinal: See HPI Genitourinary: No symptoms reported Musculoskeletal: See HPI Skin: No symptoms reported Neurological/Psychological: See HPI Physical Exam - Vital signs Vitals: Temp Pulse Resp BP Pulse Ox 98.3 F 99 18 151/83 H 100 01/23/19 04:31 01/23/19 04:31 01/23/19 04:31 01/23/19 04:31 01/23/19 04:31 - Notes Notes: Vital signs reviewed, please refer to chart. Head is normocephalic, atraumatic. Pupils equal round, reactive to light. Neck is supple without meningismus. Heart is regular rate and rhythm. Lungs are clear to auscultation bilaterally. Abdomen is soft, nontender, normoactive bowel sounds throughout. Extremities without cyanosis, clubbing. Posterior calves are nontender. Peripheral pulses are equal. Skin is warm and dry. He does have abrasions on his anterior shins bilaterally, right greater than left. There is some surrounding erythema noted, appears primarily reactive. Patient is awake, alert, very mild dysarthria which is his baseline. He has mild left-sided weakness as well. Moves all 4 extremity spontaneously. No cerebellar deficits. Course - Re-evaluation Re-evalutation: 01/23/19 09:28 Patient presents emergency department for evaluation. Laboratory investigations and treatment were initially ordered by colleague. Patient was feeling moderately improved, but then complained of new complaints including body aches. He does not have any meningeal signs, but I am concerned about the possibility of [place] spotted fever in this patient. He does sit outside most of the day. He denies any known history of tick bite. He has medicated with Toradol, has some improvement. A CT scan is unremarkable. Given his nonspecific symptoms, I am inclined to believe that RMSF is a possibility. The IgM titer was ordered. Patient's chest x-ray shows no acute infiltrate, he does have very small bilateral pleural effusions. The patient does have chronic CHF. Blood cultures were obtained. At this point I will treat empirically for RMSF with doxycycline. He is to follow-up with his primary doctor in the next 48 hours, return to the ED with worsening or new concerning symptoms of any sort. - Vital Signs Vital signs: Temp Pulse Resp BP Pulse Ox 98.3 F 99 19 151/93 H 92 01/23/19 04:31 01/23/19 04:31 01/23/19 06:01 01/23/19 07:02 01/23/19 07:02 - Laboratory Result Diagrams: 01/23/19 04:40 01/23/19 05:55 Laboratory results interpreted by me: 01/23/19 01/23/19 01/23/19 04:40 05:55 08:05 Plt Count 107 L Seg Neuts % (Manual) 91 H Lymphocytes % (Manual) 3 L Monocytes % (Manual) 2 L Abs Lymphs (Manual) 0.2 L Glucose 154 H Urine Glucose (UA) 50 H Urine Urobilinogen 4.0 H - Diagnostic Test Radiology reviewed: Reports reviewed Radiology results interpreted by me: 01/23/19 09:[address] 01/23/19 04:46 IMPRESSION: 1. Atrophy and chronic small vessel ischemic changes with no acute intracranial abnormality. 2. Chronic right maxillary sinusitis. Chest X-Ray 01/23/19 07:43 IMPRESSION: Trace bilateral pleural effusions Discharge - Discharge Clinical Impression: Nausea and vomiting, Suspect [place] spotted fever Migraine Qualifiers: Migraine type: unspecified Status migrainosus presence: without status migrainosus Intractability: not intractable Qualified Code(s): G43.909 - Migraine, unspecified, not intractable, without status migrainosus Condition: Stable Disposition: HOME, SELF-CARE Instructions: Headache ([facility]), Antinausea Medication ([facility]), Vomiting ([facility]) Additional Instructions: Zofran as needed for nausea. Follow-up with your primary care doctor in 1 to 2 days. Take all the antibiotic as prescribed until gone. Return to the emergency department with worsening or new concerning symptoms of any sort. Prescriptions: Doxycycline Hyclate 100 mg PO BID #14 capsule Butalb/Acetaminophen/Caffeine [Fioricet 50-300-40 mg Capsule] 1 cap PO Q4 PRN #20 cap PRN Reason: for pain Ondansetron [Zofran Odt 4 mg Tablet] 1 tab PO Q4H PRN #15 tab.rapdis PRN Reason: For Nausea/Vomiting Ondansetron [Zofran Odt 4 mg Tablet] 1 tab PO Q4H PRN #15 tab.rapdis PRN Reason: For Nausea/Vomiting Referrals: [facility] [NO LOCAL MD] - Follow up as needed
[2019-01-23 10:01] VITALS: BP 143/96
== END 2019-01-23 10:10 | disposition home or self-care (01) ==
LOC: ER 04:23
DX: G43.909 Migraine, unspecified, not intractable, without status migrainosus (principal); R11.2 Nausea with vomiting, unspecified; J90 Pleural effusion, not elsewhere classified; I50.9 Heart failure, unspecified; E78.00 Pure hypercholesterolemia, unspecified; I11.0 Hypertensive heart disease with heart failure; I69.928 Other speech and language deficits following unspecified cerebrovascular disease; I69.954 Hemiplegia and hemiparesis following unspecified cerebrovascular disease affecting left non-dominant side; Z85.46 Personal history of malignant neoplasm of prostate
CPT/HCPCS: 99284; 96361; 96374; 96375; 36415; 87040; 82962; 85025; 80048; 81001; 86757; 87804; 71046; 70450; J1200; J3490; J1885; J2765; J2270; J7040; J1100

== ENCOUNTER → 2019-02-20 | Outpatient (CLI) | payer MEDICAID ==
--- NOTE | 2019-02-20 12:24 | RADIOLOGY REPORT (SQ) ---
EXAM DESCRIPTION: U/S RETROPERITON (RENAL/AORTA) COMPLETED DATE/TIME: 02/20/2019 12:12 pm REASON FOR STUDY: (N18.3)CHRONIC KIDNEY DISEASE, STAGE 3 (MODERATE) N18.3 CHRONIC KIDNEY DISEASE, S TAGE 3 (MODERATE) COMPARISON: None. TECHNIQUE: Dynamic and static grayscale images acquired of the kidneys and bladder and recorded on P ACS. Additional selected color Doppler and spectral images recorded. LIMITATIONS: None. FINDINGS: RIGHT KIDNEY: Normal size, 10.1 cm. There are multiple small echogenic foci. No hydronep hrosis. LEFT KIDNEY: Normal size, 10.3 cm. Normal echogenicity. No hydronephrosis. BLADDER: The bladder is incompletely filled but no obvious bladder mass is seen. OTHER FINDINGS: No other significant finding. IMPRESSION: The kidneys are normal in size. No bladder mass is seen. There are some small echogeni c foci in the right kidney that may represent small calculi. TECHNICAL DOCUMENTATION: JOB ID: [id number] [email or web address]- All Rights Reserved Reading location - IP/workstation name: [email or web address]
== END ==
LOC: RAD 11:15
PROVIDERS: ATTEND Internal Medicine Nephrology
DX: E11.22 Type 2 diabetes mellitus with diabetic chronic kidney disease (principal); I13.0 Hypertensive heart and chronic kidney disease with heart failure and stage 1 through stage 4 chronic kidney disease, or unspecified chronic kidney disease; N18.3 Chronic kidney disease, stage 3 (moderate); I50.9 Heart failure, unspecified; Z86.73 Personal history of transient ischemic attack (TIA), and cerebral infarction without residual deficits
CPT/HCPCS: 76770

== ENCOUNTER 2019-03-01 13:01 | Day surgery (SDC) | payer MEDICAID ==
[~2019-03-01 13:01] MED LIST: CHONDR SU A NA/HYALUR INTRAOC KIT (SURGICARE) ONE; EPINEPHRINE INJ/PF 1 MG/1 ML AMPULE ONE; KETOROLAC TROMETHAMINE 0.45% 4 DROP/0.4 ML DROPERETTE OD PRN; LIDOCAINE 1% INJ-PF (10 MG/ML) 30 ML SDV ONE
[2019-03-01] MEDS ORDERED: MIDAZOLAM 2 MG/2 ML INJ ONE (14:15)
[2019-03-01] MEDS ORDERED: ONDANSETRON HCL INJ/PF 4 MG/2 ML SDV ONE (14:15)
[2019-03-01] MEDS ORDERED: FENTANYL CITRATE INJ/PF 100 MCG/2 ML AMPUL ONE (14:15)
[2019-03-01] MEDS: BESIFLOXACIN HCL 0.6% OPH SUSP 5 ML BOTTLE OD PRN ×4 (14:45→15:31)
[2019-03-01] MEDS: TROPICAMIDE 1% OPH SOLN 15 ML OD PRN ×3 (14:45→15:05)
[2019-03-01] MEDS: CYCLOPENTOLATE 0.2%/PHENYLEPHRINE 1% OPH SOLN 2 ML OD PRN ×3 (14:45→15:05)
[2019-03-01] MEDS: TETRACAINE HCL 0.5% OPH SOLN 4 ML OD PRN ×3 (14:46→15:15)
[2019-03-01] MEDS: TOBRAMYCIN SULFATE/DEXAMETH OPH OINTMENT 3.5 GM ONE ×2 (15:31)
[2019-03-01] MEDS: DORZOLAMIDE HCL 2%/TIMOLOL MALEAT 0.5% OPH SOLN 10 ML OD PRN ×2 (15:31)
== END 2019-03-01 16:03 | disposition home or self-care (01) ==
LOC: SC 13:01
PROVIDERS: ATTEND Ophthalmology
DX: H25.11 Age-related nuclear cataract, right eye (principal); E11.9 Type 2 diabetes mellitus without complications; I11.9 Hypertensive heart disease without heart failure; E78.00 Pure hypercholesterolemia, unspecified; Z86.73 Personal history of transient ischemic attack (TIA), and cerebral infarction without residual deficits; Z79.84 Long term (current) use of oral hypoglycemic drugs; G47.33 Obstructive sleep apnea (adult) (pediatric)
CPT/HCPCS: 82962; 00142; 66984; V2632; J2250; J3490 ×5; J0171; J3010; J2405; 142

== ENCOUNTER → 2019-03-09 | Outpatient (CLI) | payer MEDICAID ==
[2019-03-09 13:21] LABS: ABSOLUTE EOSINOPHILS # (AUTO) 0.1 10^3/uL (0.0-0.6); ABSOLUTE LYMPHOCYTES (AUTO) 1.1 10^3/uL (0.5-4.7); ABSOLUTE MONOCYTES (AUTO) 0.5 10^3/uL (0.1-1.4); BASOPHILS % (AUTO) 0.5 % (0-2); EOSINOPHILS % (AUTO) 2.5 % (0-6); HEMATOCRIT 37.9 % (37.9-51.0); HEMOGLOBIN 13.2 g/dL (13.5-17.0); LYMPHOCYTES % (AUTO) 18.9 % (13-45); MEAN CORPUSCULAR HEMOGLOBIN 31.3 pg (27.0-33.4); MEAN CORPUSCULAR HGB CONC 34.9 g/dL (32.0-36.0); MEAN CORPUSCULAR VOLUME 90 fl (80-97); MONOCYTES % (AUTO) 8.5 % (3-13); PLATELET COUNT 123 10^3/uL (150-450); RED BLOOD COUNT 4.23 10^6/uL (4.35-5.55); RED CELL DISTRIBUTION WIDTH 14.3 % (11.5-14.0); SEGMENTED NEUTROPHILS % (AUTO) 69.6 % (42-78); TOTAL CELLS COUNTED % (AUTO) 100 %; WHITE BLOOD COUNT 5.8 10^3/uL (4.0-10.5)
[2019-03-09 13:33] LABS: APPEARANCE,URINE CLEAR; BILIRUBIN,URINE NEGATIVE (NEGATIVE); COLOR,URINE STRAW; GLUCOSE, URINE 150 mg/dL (NEGATIVE); KETONES,URINE NEGATIVE (NEGATIVE); LEUKOCYTE ESTERASE,URINE TRACE (NEGATIVE); NITRITE,URINE NEGATIVE (NEGATIVE); PROTEIN,URINE NEGATIVE (NEGATIVE); URINE SPECIFIC GRAVITY 1.006; UROBILINOGEN,URINE NEGATIVE mg/dL (<2.0)
[2019-03-09 13:44] LABS: ALKALINE PHOSPHATASE 94 U/L (38-126); ANION GAP 9 (5-19); ASPARTATE AMINO TRANSFERASE 21 U/L (17-59); BILIRUBIN,DIRECT 0.1 mg/dL (0.0-0.4); BILIRUBIN,TOTAL 0.4 mg/dL (0.2-1.3); BLOOD UREA NITROGEN 17 mg/dL (7-20); CALCIUM 9.5 mg/dL (8.4-10.2); CARBON DIOXIDE 28 mmol/L (22-30); CHLORIDE 102 mmol/L (98-107); GLUCOSE 111 mg/dL (75-110); POTASSIUM 4.8 mmol/L (3.6-5.0); TOTAL PROTEIN 6.7 g/dL (6.3-8.2)
== END ==
LOC: OD 12:17
PROVIDERS: ATTEND Internal Medicine Nephrology
DX: I13.0 Hypertensive heart and chronic kidney disease with heart failure and stage 1 through stage 4 chronic kidney disease, or unspecified chronic kidney disease (principal); I50.9 Heart failure, unspecified; N18.3 Chronic kidney disease, stage 3 (moderate); E11.22 Type 2 diabetes mellitus with diabetic chronic kidney disease
CPT/HCPCS: 36415; 80053; 81001; 85025

== ENCOUNTER 2019-03-15 13:23 | Day surgery (SDC) | payer MEDICAID ==
[~2019-03-15 13:23] MED LIST changes: -CHONDR SU A NA/HYALUR INTRAOC KIT (SURGICARE) ONE; -EPINEPHRINE INJ/PF 1 MG/1 ML AMPULE ONE; -KETOROLAC TROMETHAMINE 0.45% 4 DROP/0.4 ML DROPERETTE OD PRN; +KETOROLAC TROMETHAMINE 0.45% 4 DROP/0.4 ML DROPERETTE OS PRN; -LIDOCAINE 1% INJ-PF (10 MG/ML) 30 ML SDV ONE
[2019-03-15] MEDS ORDERED: FENTANYL CITRATE INJ/PF 100 MCG/2 ML AMPUL ONE (13:28)
[2019-03-15] MEDS ORDERED: MIDAZOLAM 2 MG/2 ML INJ ONE (13:28)
[2019-03-15] MEDS ORDERED: ONDANSETRON HCL INJ/PF 4 MG/2 ML SDV ONE (13:28)
[2019-03-15] MEDS: TETRACAINE HCL 0.5% OPH SOLN 4 ML OS PRN ×4 (14:03→14:29)
[2019-03-15] MEDS: BESIFLOXACIN HCL 0.6% OPH SUSP 5 ML BOTTLE OS PRN ×4 (14:03→14:49)
[2019-03-15] MEDS: CYCLOPENTOLATE 0.2%/PHENYLEPHRINE 1% OPH SOLN 2 ML OS PRN ×3 (14:03→14:25)
[2019-03-15] MEDS: TROPICAMIDE 1% OPH SOLN 15 ML OS PRN ×3 (14:03→14:25)
[2019-03-15] MEDS: EPINEPHRINE INJ/PF 1 MG/1 ML AMPULE ONE ×2 (14:38)
[2019-03-15] MEDS: LIDOCAINE 1% INJ-PF (10 MG/ML) 30 ML SDV ONE ×2 (14:38)
[2019-03-15] MEDS: CHONDR SU A NA/HYALUR INTRAOC KIT (SURGICARE) ONE ×2 (14:38)
[2019-03-15] MEDS: DORZOLAMIDE HCL 2%/TIMOLOL MALEAT 0.5% OPH SOLN 10 ML OS PRN ×2 (14:49)
[2019-03-15] MEDS: TOBRAMYCIN SULFATE/DEXAMETH OPH OINTMENT 3.5 GM ONE ×2 (14:49)
== END 2019-03-15 15:30 | disposition home or self-care (01) ==
LOC: SC 13:23
PROVIDERS: ATTEND Ophthalmology
DX: H25.12 Age-related nuclear cataract, left eye (principal); Z98.41 Cataract extraction status, right eye; E11.9 Type 2 diabetes mellitus without complications; I11.9 Hypertensive heart disease without heart failure; E78.00 Pure hypercholesterolemia, unspecified; Z86.73 Personal history of transient ischemic attack (TIA), and cerebral infarction without residual deficits; I25.2 Old myocardial infarction; Z79.82 Long term (current) use of aspirin; Z79.899 Other long term (current) drug therapy
CPT/HCPCS: 66984; 82962; V2632; J2250; J3490 ×5; J0171; J3010; J2405; 142

== ENCOUNTER 2019-03-31 12:05 | Emergency (ER) | payer MEDICAID ==
[2019-03-31 12:27] LABS: ABSOLUTE EOSINOPHILS # (AUTO) 0.2 10^3/uL (0.0-0.6); ABSOLUTE LYMPHOCYTES (AUTO) 1.5 10^3/uL (0.5-4.7); ABSOLUTE MONOCYTES (AUTO) 0.6 10^3/uL (0.1-1.4); ABSOLUTE NEUT (AUTO) 5.6 10^3/uL (1.7-8.2); BASOPHILS % (AUTO) 0.4 % (0-2); EOSINOPHILS % (AUTO) 2.5 % (0-6); HEMATOCRIT 45.3 % (37.9-51.0); HEMOGLOBIN 15.6 g/dL (13.5-17.0); LYMPHOCYTES % (AUTO) 18.9 % (13-45); MEAN CORPUSCULAR HEMOGLOBIN 31.6 pg (27.0-33.4); MEAN CORPUSCULAR HGB CONC 34.5 g/dL (32.0-36.0); MEAN CORPUSCULAR VOLUME 92 fl (80-97); PLATELET COUNT 116 10^3/uL (150-450); RED BLOOD COUNT 4.94 10^6/uL (4.35-5.55); RED CELL DISTRIBUTION WIDTH 14.8 % (11.5-14.0); SEGMENTED NEUTROPHILS % (AUTO) 70.2 % (42-78); TOTAL CELLS COUNTED % (AUTO) 100 %
--- NOTE | 2019-03-31 12:31 | ER Document Report ---
ED General - General Stated Complaint: CHEST PAIN Time Seen by Provider: 03/31/19 12:22 Primary Care Provider: Chayito TA MD [Primary Care Provider] - Follow up as needed TRAVEL OUTSIDE OF THE [place] IN LAST 30 DAYS: No - HPI Notes: Patient is a 64-year-old male with a history of CHF, hypertension, diabetes, CAD (no stents/bypass), CKD, CVA (on aspirin daily) who presents complaining of substernal chest pain that would radiate to the left arm that began at 1030 this morning. Patient states that he did take 2 of his sublingual nitroglycerin at home which did resolve his pain. Patient states that he did have nausea this morning which is also resolved. Patient states that aside from a mild headache he is feeling well. He had been able to eat and drink without difficulty, but did have decreased p.o. intake this morning. He is urinating normally and having normal bowel movements. Denies drug allergies. No history of DVT or PE. Denies any fever, head injury, neck pain, changes in v ision/speech/mentation/hearing, URI, sore throat, palpitations, syncope, cough, shortness of breath, wheeze, dyspnea, abdominal pain, nausea/vomiting/diarrhea, urinary retention, dysuria, hematuria, back pain, or rash. - Related Data Allergies/Adverse Reactions: No Known Allergies Allergy (Verified 03/01/19 14:50) Past Medical History - Social History Smoking Status: Never Smoker Family History: DM, Other - Patient states family history of aneurysms - Past Medical History Cardiac Medical History: Reports: Hx Congestive Heart Failure, Hx Heart Attack - CHF, SILENT [place], Hx Hypercholesterolemia, Hx Hypertension, Hx Peripheral Vascular Disease Denies: Hx Coronary Artery Disease Pulmonary Medical History: Denies: Hx Asthma, Hx Bronchitis, Hx COPD, Hx Pneumonia, Hx Tuberculosis Neurological Medical History: Reports: Hx Cerebrovascular Accident - SPEECH DEFICIT, LEFT SIDED WEAKNESS . Denies: Hx Seizures, Hx Parkinson's Disease Endocrine Medical History: Reports: Hx Diabetes Mellitus Type 2 Renal/ Medical History: Reports: Hx Kidney Stones. Denies: Hx Benign Prostatic Hyperplasia, Hx End Stage Renal Disease, Hx Peritoneal Dialysis Malignancy Medical History: Reports Hx Prostate Cancer GI Medical History: Denies: Hx Cirrhosis, Hx Gastroesophageal Reflux Disease, Hx Hepatitis, Hx Hiatal Hernia, Hx Ulcer Musculoskeletal Medical History: Denies Hx Arthritis, Denies Hx Multiple Sclerosis Psychiatric Medical History: Denies: Hx Bipolar Disorder, Hx Depression, Hx Schizophrenia Infectious Medical History: Denies: Hx Hepatitis Past Surgical History: Reports: Hx Orthopedic Surgery. Denies: Hx Open Heart Surgery, Hx Pacemaker - LOOP MONITOR IMPLANTED 01/11 - Immunizations Hx Diphtheria, Pertussis, Tetanus Vaccination: No Review of Systems - Review of Systems -: Yes All other systems reviewed and negative Physical Exam - Vital signs Vitals: Temp Pulse BP Pulse Ox 98.4 F 78 149/97 H 98 03/31/19 12:05 03/31/19 12:05 03/31/19 12:05 03/31/19 12:05 - Notes Notes: PHYSICAL EXAMINATION: GENERAL: Well-appearing, well-nourished and in no acute distress. HEAD: Atraumatic, normocephalic. EYES: Pupils equal round and reactive to light, extraocular movements intact, sclera anicteric, conjunctiva are normal. ENT: Nares patent and without discharge. oropharynx clear without exudates. No tonsilar hypertrophy or erythema. Moist mucous membranes. NECK: Normal range of motion, supple without lymphadenopathy LUNGS: Breath sounds clear to auscultation bilaterally and equal. No wheezes rales or rhonchi. HEART: Regular rate and rhythm without murmurs, rubs, gallops. ABDOMEN: Soft, nontender, nondistended abdomen. No guarding, no rebound. Normal bowel sounds present. No CVA tenderness bilaterally. Musculoskeletal: FROM to passive/active. Strength 5+/5. Karma neg. No asymmetry to LE's. Extremities: Trace pitting b/l LE's. Peripheral pulses 2+. Capillary refill less than 3 seconds. Karma neg. NEUROLOGICAL: Normal speech, normal gait. PSYCH: Normal mood, normal affect. SKIN: Warm, Dry, normal turgor, no rashes or lesions noted. Course - Re-evaluation Re-evalutation: 03/31/19 14:[address] Lara regarding admission for CP r/o. He will evaluate the chart/patient and make decision at that time about admission vs being discharged. Pt otherwise is afebrile, well-hydrated, presenting with currently resolved chest pain after taking nitroglycerin. Vitals are acceptable without significant tachycardia, tachypnea, hypoxia. PE is otherwise unremarkable. Patient is nontoxic-appearing. Initial work-up including labs, EKG, chest x-ray unremarkable. I have called for admission for chest pain rule out and patient will be admitted by Dr. Lara. Pt in agreement with plan. 03/31/19 17:16 Dr. Lara has evaluated the patient and did speak with Dr. Mendoza. Pt was to be discharged with the 2nd trop being negative, which it is. We will start him on Ranexa per cardio at 500mg BID. Pt has been cleared by our internal med group for discharge to home otherwise. Patient is an afebrile, well-hydrated, 64 year-old male who presents to the ED with atypical chest pain, possible angina. Vitals are acceptable without any significant tachycardia, tachypnea, or hypoxia. PE is otherwise unremarkable. Patient is nontoxic-appearing and is tolerating p.o. without any difficulties. Pt is currently asymptomatic. CBC, CMP, EKG/cardiac enzymes 2, chest x-ray are all unremarkable for any acute pathology. Patient does not have any chest pain, dyspnea, or shortness of breath. Patient's presentation and symptomatology creates low suspicion for ACS, PE, pneumothorax, pericarditis, dissection, respiratory compromise, severe dehydration, sepsis, meningitis, or other systemic emergent condition at this time. Patient is aware that his condition can change from initial presentation and he needs to monitor symptoms closely and seek medical attention for any acute changes. Pt is feeling better and would like to go home. Recommend conservative measures for symptoms. Recheck with your PCM in 2-3 days. Schedule a consult with Cardiology for next week. Return to the ED with any worsening/concerning symptoms otherwise as reviewed in discharge. Patient is in agreement. - Vital Signs Vital signs: Temp Pulse Resp BP Pulse Ox 98.4 F 78 149/97 H 98 03/31/19 12:05 03/31/19 12:05 03/31/19 12:05 03/31/19 12:05 - Laboratory Result Diagrams: 03/31/19 11:33 03/31/19 11:33 Laboratory results interpreted by me: 03/31/19 03/31/19 03/31/19 11:33 11:33 11:33 RDW 14.8 H Plt Count 116 L Creatinine 1.40 H Est GFR (MDRD) Non-Af 51 L NT-Pro-B Natriuret Pep 152 H Urine Blood Ur Leukocyte Esterase 03/31/19 13:14 RDW Plt Count Creatinine Est GFR (MDRD) Non-Af NT-Pro-B Natriuret Pep Urine Blood MODERATE H Ur Leukocyte Esterase SMALL H Discharge - Discharge Clinical Impression: Atypical chest pain Condition: Stable Disposition: HOME, SELF-CARE Instructions: Chest Pain of Unclear Cause ([facility]) Additional Instructions: Maintain adequate fluid and food intake Take home medications as directed Monitor blood pressure daily and keep a log Monitor symptoms for any acute changes Recheck with your PCM in 3-5 days Schedule consult cardiology for next week. Return to the ED with any worsening symptoms and/or development of fever, headache, chest pain, palpitations, syncope, shortness of breath, trouble breathing, abdominal pain, n/v/d, blood in stool/urine, loss of control of bowel/bladder, urinary retention, muscle weakness/paralysis, numbness/tingling, or other worsening symptoms that are concerning to you. Prescriptions: Ranolazine [Ranexa 500 mg Tab.sr] 500 mg PO Q12 #30 tab.sr.12h Forms: Elevated Blood Pressure Referrals: MARY DONATO MD [ACTIVE STAFF] - Follow up in 3-5 days
[2019-03-31 12:45] LABS: ALBUMIN 4.7 g/dL (3.5-5.0); ALKALINE PHOSPHATASE 119 U/L (38-126); ANION GAP 11 (5-19); ASPARTATE AMINO TRANSFERASE 26 U/L (17-59); BILIRUBIN,DIRECT 0.2 mg/dL (0.0-0.4); BILIRUBIN,TOTAL 0.6 mg/dL (0.2-1.3); BLOOD UREA NITROGEN 17 mg/dL (7-20); CALCIUM 9.8 mg/dL (8.4-10.2); CARBON DIOXIDE 28 mmol/L (22-30); CHLORIDE 100 mmol/L (98-107); CREATINE KINASE 121 U/L (55-170); GLUCOSE 108 mg/dL (75-110); POTASSIUM 4.9 mmol/L (3.6-5.0); TOTAL PROTEIN 7.9 g/dL (6.3-8.2)
[2019-03-31 13:01] LABS: CREATINE KINASE MB 2.86 ng/mL (<4.55)
[2019-03-31 13:02] LABS: TROPONIN I < 0.012 ng/mL
--- NOTE | 2019-03-31 13:05 | RADIOLOGY REPORT (SQ) ---
EXAM DESCRIPTION: CHEST SINGLE VIEW COMPLETED DATE/TIME: 03/31/2019 12:55 pm REASON FOR STUDY: CP COMPARISON: 01/23/2019. EXAM PARAMETERS: NUMBER OF VIEWS: One view. TECHNIQUE: Single frontal radiographic view of the chest acquired. RADIATION DOSE: NA LIMITATIONS: None. FINDINGS: LUNGS AND PLEURA: No opacities, masses or pneumothorax. No pleural effusion. MEDIASTINUM AND HILAR STRUCTURES: No masses. Contour normal. HEART AND VASCULAR STRUCTURES: Heart normal in size. Normal vasculature. BONES: No acute findings. HARDWARE: Loop recorder overlies left chest. OTHER: No other significant finding. IMPRESSION: NO ACUTE RADIOGRAPHIC FINDING IN THE CHEST. TECHNICAL DOCUMENTATION: JOB ID: [id number] [employer]- All Rights Reserved Reading location - IP/workstation name: [email or web address]
--- NOTE | 2019-03-31 13:07 | EKG REPORT ---
SEVERITY:- NORMAL ECG - SINUS RHYTHM : Confirmed by: Charlee Pate MD 31-Mar-2019 13:07:12
[2019-03-31 13:39] LABS: APPEARANCE,URINE CLEAR; BILIRUBIN,URINE NEGATIVE (NEGATIVE); COLOR,URINE STRAW; GLUCOSE, URINE NEGATIVE (NEGATIVE); KETONES,URINE NEGATIVE (NEGATIVE); LEUKOCYTE ESTERASE,URINE SMALL (NEGATIVE); NITRITE,URINE NEGATIVE (NEGATIVE); PROTEIN,URINE NEGATIVE (NEGATIVE); URINE SPECIFIC GRAVITY 1.006; UROBILINOGEN,URINE NEGATIVE mg/dL (<2.0)
--- NOTE | 2019-03-31 16:44 | PDOC CONSULTATION ---
Consultation Consult Date: 03/31/19 Attending physician:: HENRIK STALEY Provider Consulted: [facility] History of Present Illness Admission Date/PCP: Chayito TA MD History of Present Illness: OBI TORRES is a 64 year old male with a history of hypertension and mild chronic kidney disease and pulmonary hypertension with a preserved left ventricular ejection fraction who presents with chest pain. He described it as a pain just to the left of the midline that did not radiate. It was r eproducible to palpation. It had resolved spontaneously. He said he was sitting down working on a puzzle when he first noticed it. He described it as a squeezing. He said it was different from previous episodes of chest pain which were sharp. He said it almost feels like he has a bruise on his chest. Indeed, when his chest is not being palpated he has no pain. He had no evidence of ischemic changes on telemetry or on EKG. He does not have a history of a left bundle branch block. He is not a smoker. He said he has had a stress test before, the most recent being in April 2017 in this hospital, and it was a normal exam. He has 2 sets of negative troponins 3 hours apart in the ER. Past Medical History Cardiac Medical History: Reports: Congestive Heart Failure, Myocardial Infarction - CHF, SILENT [place], Hyperlipidema, Hypertension, Peripheral Vascular Disease Denies: Coronary Artery Disease Pulmonary Medical History: Denies: Asthma, Bronchitis, Chronic Obstructive Pulmonary Disease (COPD), Pneumonia, Tuberculosis Neurological Medical History: Denies: Seizures Endocrine Medical History: Reports: Diabetes Mellitus Type 2 Renal/ Medical History: Denies: End Stage Renal Disease GI Medical History: Denies: Cirrhosis, Gastroesophageal Reflux Disease, Hepatitis, Hiatal Hernia Musculoskeltal Medical History: Denies: Arthritis Psychiatric Medical History: Denies: Bipolar Disorder, Depression Hematology: Denies: Anemia, Sickle Cell Disease, Bleeding Tendencies Past Surgical History Past Surgical History: Reports: Orthopedic Surgery Denies: Pacemaker - LOOP MONITOR IMPLANTED 01/11 Social History Smoking Status: Never Smoker Frequency of Alcohol Use: Occasional Hx Recreational Drug Use: No Drugs: None Hx Prescription Drug Abuse: No Family History Family History: DM, Other - Patient states family history of aneurysms Parental Family History Reviewed: Yes Children Family History Reviewed: NA Sibling(s) Family History Reviewed.: Yes Medication/Allergy Home Medications: Aspirin [Aspirin 81 mg Chewable Tablet] 81 mg PO DAILY 03/31/19 Atorvastatin Calcium [Lipitor 80 mg Tablet] 80 mg PO QHS 03/31/19 Carvedilol [Coreg 12.5 mg Tablet] 18.75 mg PO Q12 03/31/19 Diclofenac Sodium [Voltaren] 2 gm TOP BID 03/31/19 Difluprednate [Durezol] 1 drop OS DAILY 03/31/19 Difluprednate [Durezol] 1 drop OU TID 03/31/19 Furosemide [Lasix 20 mg Tablet] 20 mg PO DAILY 03/31/19 Gabapentin [Neurontin 300 mg Capsule] 300 mg PO BIDP PRN 03/31/19 Lisinopril [Prinivil 10 mg Tablet] 10 mg PO DAILY 03/31/19 Meloxicam [Mobic] 7.5 mg PO BIDP PRN 03/31/19 Metformin HCl [Glucophage] 1,000 mg PO BID 03/31/19 Nitroglycerin [Nitrostat 0.4 mg (1/150 Gr) Tabs 25/Bottle] 0.4 mg PO Q5MP PRN 03/31/19 Nortriptyline HCl [Pamelor 25 mg Capsule] 25 mg PO QHS 03/31/19 Ondansetron HCl [Zofran 4 mg Tablet] 4 mg PO Q4HP PRN 03/31/19 Pantoprazole Sodium [Protonix [address] Tablet] 40 mg PO BID 03/31/19 Silodosin [Rapaflo] 8 mg PO DAILY 03/31/19 Tizanidine HCl [Zanaflex 4 mg Tablet] 4 mg PO TID 03/31/19 Allergies/Adverse Reactions: No Known Allergies Allergy (Verified 03/01/19 14:50) Review of Systems All systems: reviewed and no additional remarkable complaints except as stated - All systems were reviewed and were negative except as noted in the HPI Physical Exam Vital Signs: Temp Pulse Resp BP Pulse Ox 98.4 F 78 149/97 H 98 03/31/19 12:05 03/31/19 12:05 03/31/19 12:05 03/31/19 12:05 General appearance: PRESENT: no acute distress, cooperative, disheveled Head exam: PRESENT: atraumatic, normocephalic Eye exam: PRESENT: EOMI, PERRLA. ABSENT: conjunctival injection, nystagmus, scleral icterus Ear exam: PRESENT: normal external ear exam Mouth exam: PRESENT: moist, neck supple Throat exam: ABSENT: post pharyngeal erythema Neck exam: PRESENT: full ROM. ABSENT: carotid bruit, JVD, lymphadenopathy, meningismus, tenderness, thyromegaly Respiratory exam: PRESENT: chest wall tenderness, clear to auscultation faiza, symmetrical, unlabored. ABSENT: accessory muscle use, crackles, prolonged expiratory phas, rhonchi, tachypnea, wheezes Cardiovascular exam: PRESENT: RRR, +S1, +S2. ABSENT: diastolic murmur, systolic murmur Pulses: PRESENT: normal carotid pulses Vascular exam: PRESENT: normal capillary refill GI/Abdominal exam: PRESENT: normal bowel sounds, soft. ABSENT: distended, guarding, rebound, tenderness Extremities exam: ABSENT: clubbing, pedal edema Musculoskeletal exam: PRESENT: ambulatory, normal inspection. ABSENT: deformity Neurological exam: PRESENT: alert, awake, oriented to person, oriented to place, oriented to time, oriented to situation, CN II-XII grossly intact. ABSENT: motor sensory deficit Psychiatric exam: PRESENT: appropriate affect, normal mood Skin exam: PRESENT: dry, warm Results Laboratory Results: 03/31/19 11:33 03/31/19 11:33 03/31/19 03/31/19 03/31/19 11:33 11:33 13:14 WBC 8.0 RBC 4.94 Hgb 15.6 Hct 45.3 MCV 92 MCH 31.6 MCHC 34.5 RDW 14.8 H Plt Count 116 L Seg Neutrophils % 70.2 Sodium 139.4 Potassium 4.9 Chloride 100 Carbon Dioxide 28 Anion Gap 11 BUN 17 Creatinine 1.40 H Est GFR ( Amer) > 60 Glucose 108 Calcium 9.8 Total Bilirubin 0.6 AST 26 Alkaline Phosphatase 119 Total Protein 7.9 Albumin 4.7 Urine Color STRAW Urine Appearance CLEAR Urine pH 5.0 Ur Specific [place] 1.006 Urine Protein NEGATIVE Urine Glucose (UA) NEGATIVE Urine Ketones NEGATIVE Urine Blood MODERATE H Urine Nitrite NEGATIVE Ur Leukocyte Esterase SMALL H Urine WBC (Auto) 13 Urine RBC (Auto) 4 03/31/19 03/31/19 03/31/19 11:33 11:33 11:33 Creatine Kinase 121 CK-MB (CK-2) 2.86 Troponin I < 0.012 NT-Pro-B Natriuret Pep 152 H 03/31/19 15:35 Creatine Kinase CK-MB (CK-2) Troponin I < 0.012 NT-Pro-B Natriuret Pep Impressions: Chest X-Ray 03/31/19 12:28 IMPRESSION: NO ACUTE RADIOGRAPHIC FINDING IN THE CHEST. Assessment and Plan - Diagnosis (1) Chest pain Qualifiers: Chest pain type: other chest pain Qualified Code(s): R07.89 - Other chest pain; R07.8 - Other chest pain Is this a current diagnosis for this admission?: Yes Plan: He has an atypical story and his chest pain is reproducible with palpation. He has no signs of active ischemia. His radiator cleaner is Dr. Pate. I spoke with Dr. Pate about this case. And he recommended that the patient be started on Ranexa and that we discharge the patient home from the ER to follow- up with him in his office next week. - Time Time Spent with patient: 35 or more minutes Disposition: Home with outpatient follow-up with Dr. Pate within 1 week
[2019-03-31 17:57] VITALS: BP 154/102
== END 2019-03-31 17:56 | disposition home or self-care (01) ==
LOC: ER 12:05
DX: R07.89 Other chest pain (principal); I50.9 Heart failure, unspecified; I11.0 Hypertensive heart disease with heart failure; E11.9 Type 2 diabetes mellitus without complications; Z85.46 Personal history of malignant neoplasm of prostate; I25.2 Old myocardial infarction; Z87.442 Personal history of urinary calculi
CPT/HCPCS: 36415; 71045; 80053; 81001; 82550; 82553; 83880; 84484; 85025; 93005; 93010; 99285

== ENCOUNTER 2019-04-04 11:57 | Emergency (ER) | payer MEDICAID ==
[2019-04-04] MEDS ORDERED: ASPIRIN 81 MG TABLET, CHEWABLE PO ONE (12:18)
--- NOTE | 2019-04-04 12:20 | ER Document Report ---
ED Medical Screen (RME) - General Chief Complaint: Chest Pain Stated Complaint: CHEST PAIN,VOMITING Time Seen by Provider: 04/04/19 12:14 Primary Care Provider: Chayito TA MD [Primary Care Provider] - Follow up as needed TRAVEL OUTSIDE OF THE [place] IN LAST 30 DAYS: No - HPI Notes: 04/04/19 12:18 64-year-old male with a history of type 2 diabetes, CHF, stage IV kidney disease presents to the emergency room for complaints of chest pain and shortness of breath that comes and goes. Patient states it feels in between having pressure on his heart or pinching, pain intermittently goes down the left arm. Patient does take a baby aspirin however did not take any today. Patient does have a friend who also is giving his medical history denies any fevers chills, reports nausea but denies vomiting or diarrhea. Denies any lightheadedness or dizziness. Patient states he was seen in the emergency room 5 days ago with similar symptoms, was discharged home. Patient's cutter head sharpener is Dr. Pate and his primary care provider is Dr. Card at [facility]. While getting evaluated by this provider, patient's heart rate did jump to 134 and then went back down to 80 normal sinus rhythm. I have greeted and performed a rapid initial assessment of this patient. A comprehensive ED assessment and evaluation of the patient, analysis of test results and completion of the medical decision making process will be conducted by additional ED providers. PHYSICAL EXAMINATION: GENERAL: Well-appearing, well-nourished and in no acute distress. HEAD: Atraumatic, normocephalic. EYES: Pupils equal round extraocular movements intact, conjunctiva are normal. ENT: Nares patent NECK: Normal range of motion LUNGS: Diminished breath sounds in upper lobes Musculoskeletal: Normal range of motion NEUROLOGICAL: Normal speech, normal gait. PSYCH: Normal mood, normal affect. SKIN: Warm, Dry, normal turgor, no rashes or lesions noted. - Related Data Allergies/Adverse Reactions: No Known Allergies Allergy (Verified 04/04/19 12:16) Past Medical History - Past Medical History Cardiac Medical History: Reports: Hx Congestive Heart Failure, Hx Heart Attack - CHF, SILENT CT, Hx Hypercholesterolemia, Hx Hypertension, Hx Peripheral Vascular Disease Denies: Hx Coronary Artery Disease Pulmonary Medical History: Denies: Hx Asthma, Hx Bronchitis, Hx COPD, Hx Pneumonia, Hx Tuberculosis Neurological Medical History: Reports: Hx Cerebrovascular Accident - SPEECH DEFICIT, LEFT SIDED WEAKNESS . Denies: Hx Seizures, Hx Parkinson's Disease Endocrine Medical History: Reports: Hx Diabetes Mellitus Type 2 Renal/ Medical History: Reports: Hx Kidney Stones. Denies: Hx Benign Prostatic Hyperplasia, Hx End Stage Renal Disease, Hx Peritoneal Dialysis Malignancy Medical History: Reports Hx Prostate Cancer GI Medical History: Denies: Hx Cirrhosis, Hx Gastroesophageal Reflux Disease, Hx Hepatitis, Hx Hiatal Hernia, Hx Ulcer Musculoskeltal Medical History: Denies Hx Arthritis, Denies Hx Multiple Sclerosis Psychiatric Medical History: Denies: Hx Bipolar Disorder, Hx Depression, Hx Schizophrenia Infectious Medical History: Denies: Hx Hepatitis Past Surgical History: Reports: Hx Orthopedic Surgery. Denies: Hx Open Heart Surgery, Hx Pacemaker - LOOP MONITOR IMPLANTED 01/11 - Immunizations Hx Diphtheria, Pertussis, Tetanus Vaccination: No Doctor's Discharge - Discharge Referrals: Chayito TA MD [Primary Care Provider] - Follow up as needed
[2019-04-04 12:52] LABS: ABSOLUTE EOSINOPHILS # (AUTO) 0.1 10^3/uL (0.0-0.6); ABSOLUTE MONOCYTES (AUTO) 0.5 10^3/uL (0.1-1.4); ABSOLUTE NEUT (AUTO) 6.7 10^3/uL (1.7-8.2); BASOPHILS % (AUTO) 0.4 % (0-2); EOSINOPHILS % (AUTO) 1.4 % (0-6); HEMATOCRIT 43.4 % (37.9-51.0); HEMOGLOBIN 14.9 g/dL (13.5-17.0); LYMPHOCYTES % (AUTO) 12.3 % (13-45); MEAN CORPUSCULAR HEMOGLOBIN 31.6 pg (27.0-33.4); MEAN CORPUSCULAR HGB CONC 34.4 g/dL (32.0-36.0); MEAN CORPUSCULAR VOLUME 92 fl (80-97); MONOCYTES % (AUTO) 5.7 % (3-13); PLATELET COUNT 121 10^3/uL (150-450); RED BLOOD COUNT 4.72 10^6/uL (4.35-5.55); RED CELL DISTRIBUTION WIDTH 14.7 % (11.5-14.0); SEGMENTED NEUTROPHILS % (AUTO) 80.2 % (42-78); TOTAL CELLS COUNTED % (AUTO) 100 %; WHITE BLOOD COUNT 8.3 10^3/uL (4.0-10.5)
--- NOTE | 2019-04-04 13:05 | RADIOLOGY REPORT (SQ) ---
EXAM DESCRIPTION: CHEST SINGLE VIEW COMPLETED DATE/TIME: 04/04/2019 12:53 pm REASON FOR STUDY: cp with sob COMPARISON: 03/31/2019 EXAM PARAMETERS: NUMBER OF VIEWS: One view. TECHNIQUE: Single frontal radiographic view of the chest acquired. RADIATION DOSE: NA LIMITATIONS: None. FINDINGS: LUNGS AND PLEURA: No opacities, masses or pneumothorax. No pleural effusion. MEDIASTINUM AND HILAR STRUCTURES: No masses. Contour normal. HEART AND VASCULAR STRUCTURES: Heart normal in size. Normal vasculature. BONES: No acute findings. HARDWARE: Loop recorder overlies left chest. OTHER: No other significant finding. IMPRESSION: NO ACUTE RADIOGRAPHIC FINDING IN THE CHEST. TECHNICAL DOCUMENTATION: JOB ID: [id number] [employer]- All Rights Reserved Reading location - IP/workstation name: [email or web address]
[2019-04-04 13:11] LABS: ALBUMIN 4.4 g/dL (3.5-5.0); ALKALINE PHOSPHATASE 99 U/L (38-126); ANION GAP 13 (5-19); ASPARTATE AMINO TRANSFERASE 23 U/L (17-59); BILIRUBIN,DIRECT 0.2 mg/dL (0.0-0.4); BILIRUBIN,TOTAL 0.7 mg/dL (0.2-1.3); BLOOD UREA NITROGEN 25 mg/dL (7-20); CALCIUM 9.8 mg/dL (8.4-10.2); CARBON DIOXIDE 28 mmol/L (22-30); CHLORIDE 100 mmol/L (98-107); CREATINE KINASE 67 U/L (55-170); GLUCOSE 143 mg/dL (75-110); POTASSIUM 4.2 mmol/L (3.6-5.0); TOTAL PROTEIN 7.3 g/dL (6.3-8.2)
[2019-04-04 13:26] LABS: CREATINE KINASE MB 1.89 ng/mL (<4.55); NT PRO BNP 102 pg/mL (<125)
[2019-04-04 13:29] LABS: TROPONIN I < 0.012 ng/mL
--- NOTE | 2019-04-04 14:48 | RADIOLOGY REPORT (SQ) ---
EXAM DESCRIPTION: CT ABD/PELVIS NO ORAL OR IV COMPLETED DATE/TIME: 04/04/2019 2:28 pm REASON FOR STUDY: abd pain epi COMPARISON: 08/02/2016 TECHNIQUE: CT scan of the abdomen and pelvis performed without intravenous or oral contrast. Images reviewed with lung, soft tissue, and bone windows. Reconstructed coronal and sagittal MPR images revi ewed. All images stored on PACS. All CT scanners at this facility use dose modulation, iterative reconstruction, and/or weight based d osing when appropriate to reduce radiation dose to as low as reasonably achievable (ALARA). [facility]: Dose Right [facility]: CareDose [facility]: Dose Right [facility]: Teradose 4D [facility]: [employer] RADIATION DOSE: CT Rad equipment meets quality standard of care and radiation dose reduction techniq ues were employed. CTDIvol: 13.3 mGy. DLP: 791 mGy-cm.mGy. LIMITATIONS: None. FINDINGS: LOWER CHEST: No significant findings. No nodules or infiltrates. NON-CONTRASTED LIVER, SPLEEN, ADRENALS: Evaluation limited by lack of IV contrast. No identified sign ificant masses. PANCREAS: No masses. No peripancreatic inflammatory changes. GALLBLADDER: No identified stones by CT criteria. No inflammatory changes to suggest cholecystitis. RIGHT KIDNEY AND URETER: No suspicious masses. Assessment limited by lack of IV contrast. No signif icant calcifications. No hydronephrosis or hydroureter. LEFT KIDNEY AND URETER: No suspicious masses. Assessment limited by lack of IV contrast. No signifi cant calcifications. No hydronephrosis or hydroureter. AORTA AND RETROPERITONEUM: No aneurysm. No retroperitoneal masses or adenopathy. BOWEL AND PERITONEAL CAVITY: No obvious masses or inflammatory changes. No free fluid. Sigmoid diver ticulosis without evidence of acute diverticulitis. APPENDIX: Normal. PELVIS, BLADDER, AND ABDOMINAL WALL:No abnormal masses. No free fluid. Bladder normal. BONES: No significant findings. OTHER: No other significant finding. IMPRESSION: 1. No acute noncontrast CT findings of the abdomen or pelvis to explain epigastric abdo luzma pain. 2. Diverticulosis without evidence of acute diverticulitis. COMMENT: Quality ID # [id number]: Final reports with documentation of one or more dose reduction techniques (e.g., Automated exposure control, adjustment of the mA and/or kV according to patient size, use of iterative reconstruction technique) TECHNICAL DOCUMENTATION: JOB ID: [id number] [employer]- All Rights Reserved Reading location - IP/workstation name: [email or web address]
--- NOTE | 2019-04-04 14:58 | ER Document Report ---
ED Cardiac - General Chief Complaint: Chest Pain Stated Complaint: CHEST PAIN,VOMITING Time Seen by Provider: 04/04/19 12:14 Primary Care Provider: Chayito TA MD [ACTIVE STAFF] - Follow up as needed Mode of Arrival: Ambulatory Information source: Patient TRAVEL OUTSIDE OF THE [place] IN LAST 30 DAYS: No - HPI Notes: Patient complains of chest pain. He states it started approximately 10 AM this morning and is mainly midsternal. No significant radiation. Nothing makes it better or worse. It is been relatively constant. He states he called his dietitian helper, Dr. Pate, who referred him to the emergency department. He states that he has not had cough or cold. He states he has had some abdominal discomfort and vomiting this morning as well. No problems with stool or rashes. He also has felt short of breath this morning. Nothing is made the pain better or worse. It is been moderate in intensity. - Related Data Allergies/Adverse Reactions: No Known Allergies Allergy (Verified 04/04/19 12:16) Past Medical History - General Information source: Patient - Social History Smoking Status: Never Smoker Chew tobacco use (# tins/day): No Frequency of alcohol use: Occasional Drug Abuse: None Family History: DM, Other - Patient states family history of aneurysms Patient has suicidal ideation: No Patient has homicidal ideation: No - Past Medical History Cardiac Medical History: Reports: Hx Congestive Heart Failure, Hx Heart Attack - CHF, SILENT [place], Hx Hypercholesterolemia, Hx Hypertension, Hx Peripheral Vascular Disease Denies: Hx Coronary Artery Disease Pulmonary Medical History: Denies: Hx Asthma, Hx Bronchitis, Hx COPD, Hx Pneumonia, Hx Tuberculosis Neurological Medical History: Reports: Hx Cerebrovascular Accident - SPEECH DEFICIT, LEFT SIDED WEAKNESS . Denies: Hx Seizures, Hx Parkinson's Disease Endocrine Medical History: Reports: Hx Diabetes Mellitus Type 2 Renal/ Medical History: Reports: Hx Kidney Stones. Denies: Hx Benign Prostatic Hyperplasia, Hx End Stage Renal Disease, Hx Peritoneal Dialysis Malignancy Medical History: Reports Hx Prostate Cancer GI Medical History: Denies: Hx Cirrhosis, Hx Gastroesophageal Reflux Disease, Hx Hepatitis, Hx Hiatal Hernia, Hx Ulcer Musculoskeletal Medical History: Denies Hx Arthritis, Denies Hx Multiple Sclerosis Psychiatric Medical History: Denies: Hx Bipolar Disorder, Hx Depression, Hx Schizophrenia Infectious Medical History: Denies: Hx Hepatitis Past Surgical History: Reports: Hx Cardiac Surgery - loop monitor, Hx Orthopedic Surgery. Denies: Hx Open Heart Surgery, Hx Pacemaker - LOOP MONITOR IMPLANTED 01/11 - Immunizations Hx Diphtheria, Pertussis, Tetanus Vaccination: No Review of Systems - Review of Systems Constitutional: denies: Chills, Fever Cardiovascular: Chest pain. denies: Palpitations Respiratory: Short of breath. denies: Cough Gastrointestinal: Abdominal pain -: Yes All other systems reviewed and negative Physical Exam - Vital signs Vitals: Temp Pulse Resp BP Pulse Ox 97.2 F 73 18 136/79 H 96 04/04/19 12:16 04/04/19 12:16 04/04/19 12:16 04/04/19 12:16 04/04/19 12:16 Interpretation: Normal - General General appearance: Appears well, Alert - HEENT Head: Normocephalic, Atraumatic Eyes: Normal Pupils: PERRL - Respiratory Respiratory status: No respiratory distress Chest status: Nontender Breath sounds: Normal Chest palpation: Normal - Cardiovascular Rhythm: Regular Heart sounds: Normal auscultation Murmur: No - Abdominal Inspection: Normal Distension: Distended Bowel sounds: Normal Tenderness: Tender - Mild diffuse tenderness. No rebound or guarding. Organomegaly: No organomegaly - Back Back: Normal, Nontender - Extremities General upper extremity: Normal inspection, Nontender, Normal color, Normal ROM, Normal temperature General lower extremity: Normal inspection, Nontender, Normal color, Normal ROM, Normal temperature, Normal weight bearing. No: Karma's sign - Neurological Neuro grossly intact: Yes Cognition: Normal Orientation: AAOx4 Sherman Coma Scale Eye Opening: Spontaneous Sherman Coma Scale Verbal: Oriented Sherman Coma Scale Motor: Obeys Commands Sherman Coma Scale Total: 15 Speech: Normal Motor strength normal: LUE, RUE, LLE, RLE Sensory: Normal - Psychological Associated symptoms: Normal affect, Normal mood - Skin Skin Temperature: Warm Skin Moisture: Dry Skin Color: Normal Course - Re-evaluation Re-evalutation: 04/04/19 14:56 Patient presents with chest pain that started this morning. His EKG shows no acute ischemic changes. Initial troponin is normal. Rest patient's labs are also unremarkable. In addition patient states he has a separate abdominal discomfort with vomiting. CT of the abdomen is also unremarkable. I have called and spoke with his dietitian helper, Dr. Mendoza, who has asked that patient follow-up in his office tomorrow at 1 PM. - Vital Signs Vital signs: Temp Pulse Resp BP Pulse Ox 97.2 F 73 18 139/91 H 100 04/04/19 12:16 04/04/19 12:16 04/04/19 16:01 04/04/19 16:01 04/04/19 16:01 - Laboratory Result Diagrams: 04/04/19 12:39 04/04/19 12:39 Laboratory results interpreted by me: 04/04/19 04/04/19 12:39 12:39 RDW 14.7 H Plt Count 121 L Lymph % (Auto) 12.3 L Seg Neutrophils % 80.2 H BUN 25 H Creatinine 1.47 H Est GFR ( Amer) 59 L Est GFR (MDRD) Non-Af 49 L Glucose 143 H - Diagnostic Test Radiology reviewed: Image reviewed, Reports reviewed - EKG Interpretation by Me EKG shows normal: Sinus rhythm Rate: Normal - 73 Rhythm: NSR [place]/QRS: No: RBBB, LBBB Discharge - Discharge Clinical Impression: Chest pain Qualifiers: Chest pain type: unspecified Qualified Code(s): R07.9 - Chest pain, unspecified Abdominal pain Qualifiers: Abdominal location: epigastric Qualified Code(s): R10.13 - Epigastric pain Condition: Stable Disposition: HOME, SELF-CARE Instructions: Chest Pain of Unclear Cause ([facility]), Abdominal Pain ([facility]) Additional Instructions: Please follow-up with Dr. Pate tomorrow at 1 PM as instructed Prescriptions: Tramadol HCl [Ultram] 50 mg PO Q6 PRN 3 Days #12 tablet PRN Reason: Referrals: Chayito TA MD [ACTIVE STAFF] - Follow up as needed MARY PATE MD [ACTIVE STAFF] - Follow up tomorrow
[2019-04-04 17:19] VITALS: BP 158/100
--- NOTE | 2019-04-05 07:46 | EKG REPORT ---
SEVERITY:- NORMAL ECG - SINUS RHYTHM : Confirmed by: Jaiden Marte MD 05-Apr-2019 07:46:26
--- NOTE | 2019-04-05 17:42 | EKG REPORT ---
SEVERITY:- ABNORMAL ECG - SINUS TACHYCARDIA LEFT BUNDLE BRANCH BLOCK : Confirmed by: Jaiden Marte MD 05-Apr-2019 17:41:23
== END 2019-04-04 17:20 | disposition home or self-care (01) ==
LOC: ER 11:57
DX: R07.9 Chest pain, unspecified (principal); R10.13 Epigastric pain; R11.10 Vomiting, unspecified; I50.9 Heart failure, unspecified; I25.2 Old myocardial infarction; I11.0 Hypertensive heart disease with heart failure; E11.9 Type 2 diabetes mellitus without complications
CPT/HCPCS: 36415; 71045; 74176; 80053; 82550; 82553; 83880; 84484; 85025; 93005; 93010; 99285

== ENCOUNTER 2019-10-10 23:13 | Emergency (ER) | payer SELFPAY ==
[2019-10-10 23:45] VITALS: BP 131/92
[2019-10-10 23:46] LABS: ABSOLUTE EOSINOPHILS # (AUTO) 0.2 10^3/uL (0.0-0.6); ABSOLUTE LYMPHOCYTES (AUTO) 1.4 10^3/uL (0.5-4.7); ABSOLUTE MONOCYTES (AUTO) 0.7 10^3/uL (0.1-1.4); ABSOLUTE NEUT (AUTO) 6.4 10^3/uL (1.7-8.2); BASOPHILS % (AUTO) 0.5 % (0-2); EOSINOPHILS % (AUTO) 1.9 % (0-6); HEMATOCRIT 45.4 % (37.9-51.0); HEMOGLOBIN 16.4 g/dL (13.5-17.0); LYMPHOCYTES % (AUTO) 16.3 % (13-45); MEAN CORPUSCULAR HEMOGLOBIN 31.7 pg (27.0-33.4); MEAN CORPUSCULAR HGB CONC 36.2 g/dL (32.0-36.0); MEAN CORPUSCULAR VOLUME 88 fl (80-97); MONOCYTES % (AUTO) 8.1 % (3-13); PLATELET COUNT 124 10^3/uL (150-450); RED BLOOD COUNT 5.18 10^6/uL (4.35-5.55); RED CELL DISTRIBUTION WIDTH 15.1 % (11.5-14.0); SEGMENTED NEUTROPHILS % (AUTO) 73.2 % (42-78); TOTAL CELLS COUNTED % (AUTO) 100 %; WHITE BLOOD COUNT 8.8 10^3/uL (4.0-10.5)
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
[2019-10-10 23:54] LABS: ALBUMIN 4.1 g/dL (3.5-5.0); ALKALINE PHOSPHATASE 91 U/L (38-126); ANION GAP 7 (5-19); ASPARTATE AMINO TRANSFERASE 20 U/L (17-59); BILIRUBIN,TOTAL 0.5 mg/dL (0.2-1.3); BLOOD UREA NITROGEN 22 mg/dL (7-20); CALCIUM 9.2 mg/dL (8.4-10.2); CARBON DIOXIDE 25 mmol/L (22-30); CHLORIDE 103 mmol/L (98-107); CREATINE KINASE 80 U/L (55-170); GLUCOSE 143 mg/dL (75-110); POTASSIUM 3.8 mmol/L (3.6-5.0); TOTAL PROTEIN 6.9 g/dL (6.3-8.2)
[2019-10-11 00:05] LABS: CREATINE KINASE MB 1.9 ng/mL (<4.55); TROPONIN I 0.017 ng/mL
--- NOTE | 2019-10-11 00:31 | RADIOLOGY REPORT (SQ) ---
CLINICAL INDICATION: eval for chest pain. Left-sided chest pain. TECHNIQUE: 3 view(s) obtained of the left ribs. Single view chest. COMPARISON: None. FINDINGS: No acute displaced rib fracture is identified. Alignment appears anatomic. Surrounding soft tissues are unremarkable. The cardiomediastinal silhouette is normal. The lungs are grossly clear. Chronic parenchymal lung change. No effusion. No pneumothorax. IMPRESSION: No acute displaced rib fracture is identified.
[2019-10-11] MEDS ORDERED: ACETAMINOPHEN 325 MG TABLET PO ONE (00:45)
--- NOTE | 2019-10-11 09:42 | EKG REPORT ---
SEVERITY:- NORMAL ECG - SINUS RHYTHM : Confirmed by: Jaiden Marte MD 11-Oct-2019 09:41:56
== END 2019-10-11 03:00 | disposition home or self-care (01) ==
LOC: ER 23:13
DX: S20.212A Contusion of left front wall of thorax, initial encounter (principal); R07.89 Other chest pain; Y08.89XA Assault by other specified means, initial encounter; R06.02 Shortness of breath; I10 Essential (primary) hypertension; I25.10 Atherosclerotic heart disease of native coronary artery without angina pectoris; E11.51 Type 2 diabetes mellitus with diabetic peripheral angiopathy without gangrene; Z59.2 Discord with neighbors, lodgers and landlord; I25.2 Old myocardial infarction; Z85.46 Personal history of malignant neoplasm of prostate; Z95.0 Presence of cardiac pacemaker
CPT/HCPCS: 36415; 80053; 82550; 82553; 83880; 84484; 85025; 93005; 93010; 99284

== ENCOUNTER 2020-04-08 22:25 | Emergency (ER) | payer SELFPAY ==
[2020-04-08] MEDS ORDERED: ASPIRIN 81 MG TABLET, CHEWABLE PO ONE (23:38)
--- NOTE | 2020-04-08 23:38 | ER Document Report ---
ED General - General Chief Complaint: Chest Pain > 30 Stated Complaint: CHEST PAIN Time Seen by Provider: 04/08/20 23:38 Primary Care Provider: SAMEER HERNANDEZ FNP-C [Primary Care Provider] - Follow up as needed TRAVEL OUTSIDE OF THE [place] IN LAST 30 DAYS: No - HPI Notes: 65-year-old male presents with chest pain. Patient states that he was on tingling [place] lights, he got aggravated and then began to have left-sided chest pain, onset around 2039. He states that he had multiple pains which he has never experienced before. Lee like a pushing sensation. He is having some radiation of pain to his left armpit. Pain is worse when touching the area. Denies shortness of breath. States that he is having an unusual sensation in his left arm, he states that it does not feel right and may be like ants are crawling all over it. He states that he is currently feeling better. He states that he started to feel better when EMS inserted the IV into his left arm. He denies that the nitroglycerin changed his pain. He did receive aspirin and 2 nitro's with EMS. He does have a cardiac history, reports he has CHF, initially his EF was 30% but has since increased to 65%. He denies any marked leg swelling. 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 He has an upcoming stress test. 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 - Related Data Allergies/Adverse Reactions: No Known Allergies Allergy (Verified 04/04/19 12:16) Past Medical History - General Information source: Patient - Social History Smoking Status: Never Smoker Chew tobacco use (# tins/day): No Frequency of alcohol use: Rare Drug Abuse: None Family History: Reviewed & Not Pertinent, DM, Other - Patient states family history of aneurysms Patient has homicidal ideation: No - Past Medical History Cardiac Medical History: Reports: Hx Congestive Heart Failure, Hx Heart Attack - CHF, SILENT HI, Hx Hypercholesterolemia, Hx Hypertension, Hx Peripheral Vascular Disease Denies: Hx Coronary Artery Disease Pulmonary Medical History: Denies: Hx Asthma, Hx Bronchitis, Hx COPD, Hx Pneumonia, Hx Tuberculosis Neurological Medical History: Reports: Hx Cerebrovascular Accident - SPEECH DEFICIT, LEFT SIDED WEAKNESS . Denies: Hx Seizures, Hx Parkinson's Disease Endocrine Medical History: Reports: Hx Diabetes Mellitus Type 2 Renal/ Medical History: Reports: Hx Kidney Stones. Denies: Hx Benign Prostatic Hyperplasia, Hx End Stage Renal Disease, Hx Peritoneal Dialysis Malignancy Medical History: Reports Hx Prostate Cancer GI Medical History: Denies: Hx Cirrhosis, Hx Gastroesophageal Reflux Disease, Hx Hepatitis, Hx Hiatal Hernia, Hx Ulcer Musculoskeletal Medical History: Denies Hx Arthritis, Denies Hx Multiple Sclerosis Psychiatric Medical History: Denies: Hx Bipolar Disorder, Hx Depression, Hx Schizophrenia Infectious Medical History: Denies: Hx Hepatitis Past Surgical History: Reports: Hx Cardiac Surgery - loop monitor, Hx Orthopedic Surgery. Denies: Hx Open Heart Surgery, Hx Pacemaker - LOOP MONITOR IMPLANTED 01/11 - Immunizations Hx Diphtheria, Pertussis, Tetanus Vaccination: No Review of Systems - Review of Systems Constitutional: No symptoms reported EENT: No symptoms reported Cardiovascular: Chest pain Respiratory: denies: Short of breath Gastrointestinal: denies: Abdominal pain Genitourinary: No symptoms reported Male Genitourinary: No symptoms reported Musculoskeletal: denies: Leg swelling Skin: No symptoms reported Hematologic/Lymphatic: No symptoms reported Neurological/Psychological: No symptoms reported Physical Exam - Vital signs Vitals: Temp 98.2 F 04/08/20 22:25 - General General appearance: Appears well, Alert In distress: None - HEENT Head: Normocephalic, Atraumatic Extraocular movements intact: Yes Pupils: PERRL - Respiratory Chest status: Tender - Left pectoral area Breath sounds: Normal - Cardiovascular Rhythm: Regular Heart sounds: Normal auscultation Normal capillary refill: Yes - Abdominal Tenderness: Nontender - Extremities General lower extremity: No: Edema Arm: Nontender - Neurological Neuro grossly intact: Yes Cognition: Normal Orientation: AAOx4 - Psychological Associated symptoms: Normal affect - Skin Skin Temperature: Warm Course - Re-evaluation Re-evalutation: 65-year-old male who presents from home with chest pain, started around 2039 after he was untangling [place] lights. He does have a cardiac history, reportedly systolic CHF which has since improved to an EF of 65%. Pain different from previously experienced cardiac related chest pain. His description of pain is somewhat atypical in nature. Odd that it was improved during IV placement, no relief from nitro. He does have tenderness to his left pectoral area. His EKG is nonischemic. Given the reproducible nature, I am more suspicious for musculoskeletal etiology at this time, however will perform cardiac work-up including 2 troponins. Will trial lidocaine patch and Tylenol for further pain control. 04/09/20 00:05 Electrolytes okay. Creatinine upper limits of normal. First troponin is negative. 04/09/20 04:44 Trop neg x2, pt sx free and wanting to go home. Discussed f/u cardiology, return precautions given, stable at time of discharge. - Vital Signs Vital signs: Temp Pulse Resp BP Pulse Ox 98.2 F 17 119/74 100 04/08/20 22:25 04/08/20 23:01 04/08/20 23:00 04/08/20 23:31 - Laboratory Results Result Diagrams: 04/08/20 22:44 04/08/20 22:44 Laboratory Results Interpreted: 04/08/20 04/08/20 04/08/20 22:24 22:44 22:44 RDW 14.1 H Plt Count 120 L Sodium 134.1 L Est GFR (MDRD) Non-Af 59 L Glucose 206 H NT-Pro-B Natriuret Pep 258 H Critical Laboratory Results Reviewed: No Critical Results - Radiology Results Critical Radiology Results Reviewed: No Critical Results - EKG Interpretation by Me Additional EKG results interpreted by me: EKG is interpreted by me. Sinus rhythm, rate 60. Narrow QRS, QTC within normal limits. No ST segment elevation or depression. Discharge - Discharge Clinical Impression: Atypical chest pain Disposition: HOME, SELF-CARE Referrals: SAMEER HERNANDEZ FNP-C [Primary Care Provider] - Follow up as needed
[2020-04-08 23:46] LABS: ABSOLUTE BASOPHILS # (AUTO) 0.1 10^3/uL (0.0-0.2); ABSOLUTE EOSINOPHILS # (AUTO) 0.2 10^3/uL (0.0-0.6); ABSOLUTE LYMPHOCYTES (AUTO) 1.9 10^3/uL (0.5-4.7); ABSOLUTE MONOCYTES (AUTO) 0.7 10^3/uL (0.1-1.4); ABSOLUTE NEUT (AUTO) 6.5 10^3/uL (1.7-8.2); BASOPHILS % (AUTO) 0.6 % (0-2); HEMATOCRIT 44.6 % (37.9-51.0); HEMOGLOBIN 15.8 g/dL (13.5-17.0); MEAN CORPUSCULAR HEMOGLOBIN 31.1 pg (27.0-33.4); MEAN CORPUSCULAR HGB CONC 35.3 g/dL (32.0-36.0); MEAN CORPUSCULAR VOLUME 88 fl (80-97); MONOCYTES % (AUTO) 7.8 % (3-13); PLATELET COUNT 120 10^3/uL (150-450); RED BLOOD COUNT 5.07 10^6/uL (4.35-5.55); RED CELL DISTRIBUTION WIDTH 14.1 % (11.5-14.0); SEGMENTED NEUTROPHILS % (AUTO) 69.6 % (42-78); TOTAL CELLS COUNTED % (AUTO) 100 %; WHITE BLOOD COUNT 9.3 10^3/uL (4.0-10.5)
[2020-04-08 23:48] VITALS: BP 119/74
[2020-04-08 23:53] LABS: ALBUMIN 3.7 g/dL (3.5-5.0); ALKALINE PHOSPHATASE 101 U/L (38-126); ANION GAP 8 (5-19); ASPARTATE AMINO TRANSFERASE 24 U/L (17-59); BILIRUBIN,DIRECT 0.2 mg/dL (0.0-0.4); BILIRUBIN,TOTAL 0.4 mg/dL (0.2-1.3); BLOOD UREA NITROGEN 19 mg/dL (7-20); CALCIUM 9.4 mg/dL (8.4-10.2); CARBON DIOXIDE 24 mmol/L (22-30); CHLORIDE 102 mmol/L (98-107); GLUCOSE 206 mg/dL (75-110); TOTAL PROTEIN 6.7 g/dL (6.3-8.2)
[2020-04-08] MEDS ORDERED: LIDOCAINE 5% (700 MG) TRANSDERMAL ADH..PATCH TP ONE (23:53)
[2020-04-08] MEDS ORDERED: ACETAMINOPHEN 325 MG TABLET PO ONE (23:54)
--- NOTE | 2020-04-09 00:33 | RADIOLOGY REPORT (SQ) ---
CHEST X-RAY 1 VIEW on 04/08/2020 at 11:56 PM CLINICAL INDICATION: Chest pain COMPARISON: 10/10/2019 FINDINGS: Implantable cardiac recording device projects over the left chest. There is elevation of the right hemidiaphragm. The lungs are clear. Cardiac, hilar and mediastinal contours are within normal limits. Pulmonary vascularity is within normal. No bony abnormality is noted. IMPRESSION: No acute disease.
--- NOTE | 2020-04-09 14:19 | EKG REPORT ---
SEVERITY:- NORMAL ECG - SINUS RHYTHM : Confirmed by: Charlee Pate MD 09-Apr-2020 14:18:50
== END 2020-04-09 04:35 | disposition home or self-care (01) ==
LOC: ER 22:25
DX: R07.89 Other chest pain (principal); I11.0 Hypertensive heart disease with heart failure; I50.22 Chronic systolic (congestive) heart failure; E11.51 Type 2 diabetes mellitus with diabetic peripheral angiopathy without gangrene; I25.2 Old myocardial infarction
CPT/HCPCS: 36415; 71045; 80053; 83880; 84484; 85025; 93005; 93010; 99285